=== PATIENT | male | born 1960 | race Caucasian/White ===

== ENCOUNTER 2017-08-28 07:03 | Inpatient (IN) | payer SELFPAY ==
[~2017-08-28] VITALS: Ht 180.3 cm; Wt 72.1 kg
[2017-08-28] MEDS ORDERED: IV NORMAL SALINE 1000ML BAG 1,000 ML IV ONE (07:45)
[2017-08-28] MEDS ORDERED: ONDANSETRON PF 4 MG/2 ML VIAL. IV ONE (07:45)
[2017-08-28] MEDS ORDERED: MORPHINE SULFATE 2 MG/ML DISP.SYRIN. IV/SQ PRN (07:45)
[2017-08-28] MEDS ORDERED: PANTOPRAZOLE IV PUSH 40 MG VIAL. IVP ONE (07:45)
[2017-08-28 07:52] LABS: BASO # 0.1 x10^3/uL (0.0-0.2); BASO % 1 % (0-3); EOS % 1 % (0-3); HEMATOCRIT 33.4 % (39.0-53.0); HEMOGLOBIN 10.2 g/dL (13.0-17.5); LYMPH # 0.8 x10^3/uL (1.0-4.8); LYMPH % 9 % (24-48); MEAN CORPUSCULAR HEMOGLOBIN 20 pg (25-35); MEAN CORPUSCULAR HGB CONC 31 g/dL (31-37); MEAN CORPUSCULAR VOLUME 64 fL (79-100); MONO % 4 % (0-9); NEUT % 86 % (31-73); PLATELET COUNT 408 x10^3/uL (140-400); RED BLOOD COUNT 5.19 x10^6/uL (4.30-5.70); RED CELL DISTRIBUTION WIDTH 18.4 % (11.5-14.5); WHITE BLOOD COUNT 9.2 x10^3/uL (4.0-11.0)
--- NOTE | 2017-08-28 07:52 | PHYS DOC ---
Adult General Chief Complaint Chief Complaint: ABDOMINAL PAIN HPI HPI Patient is a 56 year old male presents to the emergency department with a 1 month history of abdominal pain, cramping. Patient states he has developed bloody stools that have been dark red to bright red in color. Patient states he was seen at a clinic in which they called him last night telling him his blood count was low and called a prescription in for protonix in which has not picked up yet. Patient continues stating that he started vomiting the last 2 days, to many to count. He states the color has been greenish in color. Patient the developed light headedness and dizziness. Patient does state he drinks alcohol daily, smoke 1 ppd. Patient has a family history: mother with colon cancer and liver, father also had cancer. Patient had a normal colonoscopy in . Review of Systems Review of Systems Constitutional: Denies fever or chills [] Eyes: Denies change in visual acuity, redness, or eye pain [] HENT: Denies nasal congestion or sore throat [] Respiratory: Denies cough or shortness of breath [] Cardiovascular: No additional information not addressed in HPI [] GI: abdominal pain, nausea, vomiting, bloody stools. : Denies dysuria or hematuria [] Musculoskeletal: Denies back pain or joint pain [] Integument: Denies rash or skin lesions [] Neurologic: Denies headache, focal weakness or sensory changes [] Endocrine: Denies polyuria or polydipsia [] Current Medications Current Medications Current Medications Medications (Trade) Dose Ordered Sig/Kayleigh Start Time Stop Time Status Last Admin Dose Admin Morphine Sulfate 2 mg PRN Q15MIN PRN 08/28/17 07:45 08/29/17 07:44 Ondansetron HCl (Zofran) 4 mg 1X ONCE 08/28/17 07:45 08/28/17 07:46 DC 08/28/17 07:48 4 MG Pantoprazole Sodium (Protonix Vial) 40 mg 1X ONCE 08/28/17 07:45 08/28/17 07:46 DC 08/28/17 07:50 40 MG Sodium Chloride 1,000 ml @ 1,000 mls/hr 1X ONCE 08/28/17 07:45 08/28/17 08:44 DC 08/28/17 07:48 1,000 MLS/HR Allergies Allergies Allergies Coded Allergies Type Severity Reaction Last Updated Verified shellfish derived Allergy Intermediate 08/28/17 Yes shrimp Allergy Intermediate 08/28/17 Yes Physical Exam Physical Exam Constitutional: Well developed, well nourished, no acute distress, non-toxic appearance. [] HENT: Normocephalic, atraumatic, bilateral external ears normal, oropharynx moist, no oral exudates, nose normal. [] Eyes: PERRLA, EOMI, conjunctiva normal, no discharge. [] Neck: Normal range of motion, no tenderness, supple, no stridor. [] Cardiovascular:Heart rate regular rhythm, no murmur [] Lungs & Thorax: Bilateral breath sounds clear to auscultation [] Abdomen: Bowel sounds hypoactive, soft, left lower abdominal tenderness, no masses, no pulsatile masses. [] Skin: Warm, dry, no erythema, no rash. [] Extremities: No tenderness, no cyanosis, no clubbing, ROM intact, no edema. [] Neurologic: Alert and oriented X 3, normal motor function, normal sensory function, no focal deficits noted. [] Psychologic: Affect normal, judgement normal, mood normal. [] Rectal exam completed with KANDICE Mack at bedside no augustus blood noted. Patient was noted to have external hemorrhoids with no bleeding Current Patient Data Vital Signs Vital Signs Date Time Temp Pulse Resp B/P (MAP) Pulse Ox O2 Delivery O2 Flow Rate FiO2 08/28/17 07:05 97.7 94 16 129/81 (97) 99 Room Air 97.7 Lab Values Laboratory Tests Test 08/28/17 07:15 08/28/17 07:26 White Blood Count 9.2 x10^3/uL (4.0-11.0) Red Blood Count 5.19 x10^6/uL (4.30-5.70) Hemoglobin 10.2 g/dL (13.0-17.5) L Hematocrit 33.4 % (39.0-53.0) L Mean Corpuscular Volume 64 fL (79-100) L Mean Corpuscular Hemoglobin 20 pg (25-35) L Mean Corpuscular Hemoglobin Concent 31 g/dL (31-37) Red Cell Distribution Width 18.4 % (11.5-14.5) H Platelet Count 408 x10^3/uL (140-400) H Neutrophils (%) (Auto) 86 % (31-73) H Lymphocytes (%) (Auto) 9 % (24-48) L Monocytes (%) (Auto) 4 % (0-9) Eosinophils (%) (Auto) 1 % (0-3) Basophils (%) (Auto) 1 % (0-3) Neutrophils # (Auto) 7.9 x10^3uL (1.8-7.7) H Lymphocytes # (Auto) 0.8 x10^3/uL (1.0-4.8) L Monocytes # (Auto) 0.4 x10^3/uL (0.0-1.1) Eosinophils # (Auto) 0.1 x10^3/uL (0.0-0.7) Basophils # (Auto) 0.1 x10^3/uL (0.0-0.2) Platelet Estimate Pending Sodium Level 136 mmol/L (136-145) Potassium Level 4.6 mmol/L (3.5-5.1) Chloride Level 98 mmol/L (98-107) Carbon Dioxide Level 25 mmol/L (21-32) Anion Gap 13 (6-14) Blood Urea Nitrogen 17 mg/dL (8-26) Creatinine 0.9 mg/dL (0.7-1.3) Estimated GFR (Cockcroft-Gault) 87.0 BUN/Creatinine Ratio 19 (6-20) Glucose Level 86 mg/dL (70-99) Calcium Level 9.1 mg/dL (8.5-10.1) Total Bilirubin 0.5 mg/dL (0.2-1.0) Aspartate Amino Transferase (AST) 26 U/L (15-37) Alanine Aminotransferase (ALT) 14 U/L (16-63) L Alkaline Phosphatase 90 U/L (46-116) Total Protein 8.3 g/dL (6.4-8.2) H Albumin 3.6 g/dL (3.4-5.0) Albumin/Globulin Ratio 0.8 (1.0-1.7) L Amylase Level 98 U/L (25-115) Lipase 171 U/L (73-393) Ethyl Alcohol Level < 10 mg/dL (0-10) Stool Occult Blood Positive (NEG) Laboratory Tests 08/28/17 07:15 Laboratory Tests 08/28/17 07:15 EKG EKG [] Radiology/Procedures Radiology/Procedures [] Course & Med Decision Making Course & Med Decision Making Pertinent Labs and Imaging studies reviewed. (See chart for details) Patients hgh is stable at 10.2 Patient was provided with IV fluids and protonix here in the emergency department. CT scan completed with results provided to patient. Spoke with Dr Donnelly in regards to admission for this patient. Requested GI consult. Patient was also place on IV antibiotics as CT scan questioned diverticulitis vs sigmoid colonic malignancy. Patient will be NPO with IV fluids for hydration. Patient agrees with admission at this time. [] Dragon Disclaimer Dragon Disclaimer This electronic medical record was generated, in whole or in part, using a voice recognition dictation system. Departure Departure Impression: Primary Impression: Abdominal pain Additional Impressions: GI bleed Diverticulitis Disposition: ADMITTED INPATIENT Admitting Physician: Kartik Donnelly Referrals: NON,STAFF (PCP) Problem Qualifiers Primary Impression: Abdominal pain Abdominal location: generalized Qualified Codes: R10.84 - Generalized abdominal pain Additional Impressions: GI bleed GI bleed type/associated pathology: unspecified gastrointestinal hemorrhage type Qualified Codes: K92.2 - Gastrointestinal hemorrhage, unspecified CORINNE BILL MONEY COUNTER Aug 28, 2017 07:52
[2017-08-28 07:56] LABS: NEG OBC FOB NEG; POS OBC FOB POS
[2017-08-28 08:05] LABS: CALCIUM 9.1 mg/dL (8.5-10.1); CREATININE 0.9 mg/dL (0.7-1.3); POTASSIUM 4.6 mmol/L (3.5-5.1)
[2017-08-28 08:06] LABS: AMYLASE 98 U/L (25-115)
[2017-08-28 08:12] LABS: ALBUMIN 3.6 g/dL (3.4-5.0); ALBUMIN/GLOBULIN RATIO 0.8 (1.0-1.7); TOTAL BILIRUBIN 0.5 mg/dL (0.2-1.0); TOTAL PROTEIN 8.3 g/dL (6.4-8.2)
--- NOTE | 2017-08-28 09:39 | RAD ---
CT study of the abdomen and pelvis without contrast Clinical indications: Abdominal pain with vomiting and rectal bleeding. Technique: Noncontrast helical CT scanning of the abdomen and pelvis was performed. Without contrast, the sensitivity to detect organ pathology and GI tract pathology is decreased. PQRS Compliance Statement: One or more of the following individualized dose reduction techniques were utilized for this examination: 1. Automated exposure control 2. Adjustment of the mA and/or kV according to patient size 3. Use of iterative reconstruction technique Comparison: None available. Findings: The liver and spleen and pancreas are homogeneous in appearance as noncontrast study. The gallbladder is surgically absent. No extra hepatic biliary ductal dilatation is seen. There is mild dilatation of the common bile duct measuring up to 9 mm in caliber. There is a tubular structure adjacent to the common bile duct which contains small calcifications. This may represent a residual cystic duct remnant containing small gallstones or calcified biliary sludge. This structure measures 8 mm in caliber. No adrenal mass is seen. No hydronephrosis or hydroureter or urinary tract stone is seen. No renal mass is seen on either side on this noncontrast study. No focal aneurysmal dilatation of the abdominal aorta is seen. No enlarged abdominal or pelvic lymphadenopathy is seen. There is wall thickening of the mid sigmoid colon. There is some mild pericolonic inflammatory change here. The appendix is normal. The terminal ileum is unremarkable. There are fluid-filled dilated small bowel loops centrally but no discrete caliber change is seen. Therefore, this may represent enteritis. No free air is evident. There is a small amount of free fluid within the dependent portion of the pelvis. No lung base consolidation is evident. Avascular necrosis of both femoral heads is seen. No osteolytic process is seen. IMPRESSION: There is segmental wall thickening of the mid sigmoid colon with mild pericolonic inflammatory change. This could represent sigmoid diverticulitis or sigmoid colonic malignancy. Small amount of free fluid is seen within the dependent portion of the pelvis. No free air is evident. Diffuse mildly dilated fluid-filled small bowel loops are seen without definite caliber change. Therefore, this may represent enteritis rather the small bowel obstruction. There is mild dilatation of the common bile duct. This may be due to the reservoir effect from the cholecystectomy. However, correlation with liver function tests is recommended. There is mild dilatation of the adjacent cystic duct remnant which contains multiple small calcifications which could represent small gallstones or calcified stagnant biliary sludge within the cystic duct remnant.
[2017-08-28] MEDS ORDERED: CIPROFLOXACIN 400MG PREMIX 200 ML IV ONE (10:00)
[2017-08-28] MEDS ORDERED: ONDANSETRON PF 4 MG/2 ML VIAL. IV PRN (10:00)
[2017-08-28] MEDS ORDERED: MORPHINE SULFATE 4 MG/ML DISP.SYRIN. IV PRN (10:00)
[2017-08-28] MEDS: IV NORMAL SALINE 1000ML BAG 1,000 ML IV SCH ×2 (10:25→17:25)
[2017-08-28 11:05] LABS: PLT ESTIMATE INCREASED (ADEQUATE)
[2017-08-28 11:06] LABS: ANISOCYTOSIS SLIGHT; HYPOCHROMIA MOD; MICROCYTOSIS MOD
--- NOTE | 2017-08-28 11:51 | PDOC2 ---
GI CONSULT Reason For Consult: GI bleed possible diverticulitis HPI: HPI: 56 y/o male who reports intermittent abdominal cramping "around the belt line" x 2-3 months. Associated w/ rectal bleeding (last occurred last week). Was seen at a clinic next to his work last week for this reason, provider called him yesterday and advised starting Protonix, was also found to be anemic. 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 Came to ER instead. Here, microcytic anemia w/ elevated RDW and positive hemoccult. CT shows mid sigmoid wall thickening w/ mild pericolonic inflammation (diverticulitis vs malignancy) and diffuse mildly dilated fluid-filled small bowel loops (possible enteritis). Also noted is mild dilatation of CBD s/p cholecystectomy w/ mild dilatation of cystic duct remnant w/ multiple calcifications (small gallstones or biliary sludge). Started on IV Flagyl and Cipro, given IV PPI x 1. No GERD history, no previous EGD. Has lost about 10 pounds unintentionally. Usually eats 1 meal daily; since cholecystectomy ~7 years ago, avoids eating at work due to associated urgency to stool. Says is having normal formed stools w/ o diarrhea or constipation. Colonoscopy in 2008 or 2009 @ [facility], recalls as normal. No hematemesis or melena. H/o hemorrhoidectomy - had prior prior to that, never bleeding. PMH: PMH: cholelithiasis, cholecystectomy, hemorrhoidectomy FH: Family History: Cancer (mother - colon, father - liver) Social History: Smoke: 1 pack per day ALCOHOL: other (6 pack of beer weekly) Drugs: None ROS: GEN: Denies fevers, chills, sweats HEENT: Denies blurred vision, sore throat CV: Denies chest pain RESP: Denies shortness of air, cough GI: Per HPI : Denies hematuria, dysuria ENDO: +weight loss NEURO: Denies confusion, dizziness MSK: Denies weakness, joint pain/swelling SKIN: Denies jaundice, pruritus Vitals: Vitals: Vital Signs Date Time Temp Pulse Resp B/P (MAP) Pulse Ox O2 Delivery O2 Flow Rate FiO2 08/28/17 07:05 97.7 94 16 129/81 (97) 99 Room Air 97.7 Labs: Labs: Laboratory Tests Test 08/28/17 07:15 08/28/17 07:26 White Blood Count 9.2 x10^3/uL (4.0-11.0) Red Blood Count 5.19 x10^6/uL (4.30-5.70) Hemoglobin 10.2 g/dL (13.0-17.5) Hematocrit 33.4 % (39.0-53.0) Mean Corpuscular Volume 64 fL (79-100) Mean Corpuscular Hemoglobin 20 pg (25-35) Mean Corpuscular Hemoglobin Concent 31 g/dL (31-37) Red Cell Distribution Width 18.4 % (11.5-14.5) Platelet Count 408 x10^3/uL (140-400) Neutrophils (%) (Auto) 86 % (31-73) Lymphocytes (%) (Auto) 9 % (24-48) Monocytes (%) (Auto) 4 % (0-9) Eosinophils (%) (Auto) 1 % (0-3) Basophils (%) (Auto) 1 % (0-3) Neutrophils # (Auto) 7.9 x10^3uL (1.8-7.7) Lymphocytes # (Auto) 0.8 x10^3/uL (1.0-4.8) Monocytes # (Auto) 0.4 x10^3/uL (0.0-1.1) Eosinophils # (Auto) 0.1 x10^3/uL (0.0-0.7) Basophils # (Auto) 0.1 x10^3/uL (0.0-0.2) Segmented Neutrophils % 88 % (35-66) Lymphocytes % 6 % (24-48) Monocytes % 6 % (0-10) Platelet Estimate Increased (ADEQUATE) Hypochromasia Mod Anisocytosis Slight Microcytosis Mod Sodium Level 136 mmol/L (136-145) Potassium Level 4.6 mmol/L (3.5-5.1) Chloride Level 98 mmol/L (98-107) Carbon Dioxide Level 25 mmol/L (21-32) Anion Gap 13 (6-14) Blood Urea Nitrogen 17 mg/dL (8-26) Creatinine 0.9 mg/dL (0.7-1.3) Estimated GFR (Cockcroft-Gault) 87.0 BUN/Creatinine Ratio 19 (6-20) Glucose Level 86 mg/dL (70-99) Calcium Level 9.1 mg/dL (8.5-10.1) Total Bilirubin 0.5 mg/dL (0.2-1.0) Aspartate Amino Transf (AST/SGOT) 26 U/L (15-37) Alanine Aminotransferase (ALT/SGPT) 14 U/L (16-63) Alkaline Phosphatase 90 U/L (46-116) Total Protein 8.3 g/dL (6.4-8.2) Albumin 3.6 g/dL (3.4-5.0) Albumin/Globulin Ratio 0.8 (1.0-1.7) Amylase Level 98 U/L (25-115) Lipase 171 U/L (73-393) Ethyl Alcohol Level < 10 mg/dL (0-10) Stool Occult Blood Positive (NEG) Allergies: Coded Allergies: shellfish derived (Verified Allergy, Intermediate, 08/28/17) shrimp (Verified Allergy, Intermediate, 08/28/17) Medications: Current Medications Medications (Trade) Dose Ordered Sig/Kayleigh Route PRN Reason Start Time Stop Time Status Last Admin Dose Admin Sodium Chloride 1,000 ml @ 1,000 mls/hr 1X ONCE IV 08/28/17 07:45 08/28/17 08:44 DC 08/28/17 07:48 Ondansetron HCl (Zofran) 4 mg 1X ONCE IV 08/28/17 07:45 08/28/17 07:46 DC 08/28/17 07:48 Pantoprazole Sodium (Protonix Vial) 40 mg 1X ONCE IVP 08/28/17 07:45 08/28/17 07:46 DC 08/28/17 07:50 Sodium Chloride 1,000 ml @ 125 mls/hr Q8H IV 08/28/17 09:49 08/29/17 09:48 08/28/17 10:25 Ciprofloxacin/ Dextrose 200 ml @ 200 mls/hr 1X ONCE IV 08/28/17 10:00 08/28/17 10:59 DC 08/28/17 10:24 Imaging: Imaging: CT A/P IMPRESSION: There is segmental wall thickening of the mid sigmoid colon with mild pericolonic inflammatory change. This could represent sigmoid diverticulitis or sigmoid colonic malignancy. Small amount of free fluid is seen within the dependent portion of the pelvis. No free air is evident. Diffuse mildly dilated fluid-filled small bowel loops are seen without definite caliber change. Therefore, this may represent enteritis rather the small bowel obstruction. There is mild dilatation of the common bile duct. This may be due to the reservoir effect from the cholecystectomy. However, correlation with liver function tests is recommended. There is mild dilatation of the adjacent cystic duct remnant which contains multiple small calcifications which could represent small gallstones or calcified stagnant biliary sludge within the cystic duct remnant. PE: GEN: NAD HEENT: Atraumatic, PERRL LUNGS: CTAB anteriorly HEART: RRR ABD: NABS, S/ND, umbilical tenderness to BLQ and suprapubic region EXTREMITY: No edema SKIN: No rashes, no jaundice NEURO/PSYCH: A & O 3 A/P: A/P: Vomiting -acute onset yesterday, precipitated by eating chili Lower abd cramping, rectal bleeding -bothersome intermittently x 2-3 months Weight loss -unintentional, about 10 pounds -eats 1 meal daily to avoid urgent stooling at work Microcytic anemia Abnormal CT A/P -mid sigmoid wall thickening w/ mild pericolonic inflammation (diverticulitis vs malignancy) -diffuse mildly dilated fluid-filled small bowel loops (possible enteritis) -mild dilatation of CBD s/p cholecystectomy w/ mild dilatation of cystic duct remnant w/ multiple calcifications (small gallstones or biliary sludge) CRC screen, FH colon cancer -recalls normal colonoscopy in 2008 or 2009 -- Colonoscopy tomorrow after prep. 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 ALEXIS ACEVEDO Aug 28, 2017 11:51
[2017-08-28 12:12] VITALS: BP 108/73
[2017-08-28 12:20] LABS: % SAT IRON 3 % (15-34); IRON,SERUM 14 ug/dL (65-175)
[2017-08-28 13:14] LABS: HEMATOCRIT 27.5 % (39.0-53.0); HEMOGLOBIN 8.5 g/dL (13.0-17.5)
[2017-08-28 13:46] LABS: FOLATE 12.46 ng/ml (3.2-20.0)
[2017-08-28] MEDS: FAMOTIDINE 20 MG/2 ML VIAL IVP SCH ×2 (14:56→21:16)
[2017-08-28 15:00] VITALS: BP 117/72
[2017-08-28] MEDS ORDERED: BISACODYL 5 MG TABLET.DR. PO ONE (15:00)
[2017-08-28] MEDS ORDERED: POLYETHYLENE GLYCOL 3350 238 GM POWDER PO ONE (16:00)
[2017-08-28] MEDS ORDERED: NICOTINE 21MG PATCH. TD PRN (16:00)
[2017-08-28] MEDS: NICOTINE POLACRILEX 2MG GUM PACKAGE of 12. BC PRN (17:26)
[2017-08-28 19:00] VITALS: BP 103/62
[2017-08-28 19:43] LABS: HEMATOCRIT 26.5 % (39.0-53.0); HEMOGLOBIN 8.3 g/dL (13.0-17.5)
[2017-08-28] MEDS: LACTOBACILLUS RHAMNOSUS GG 1 CAPSULE. PO SCH (21:16)
[2017-08-28] MEDS: CIPROFLOXACIN 400MG PREMIX 200 ML IV SCH (21:16)
[2017-08-28 23:00] VITALS: BP 104/70
--- NOTE | 2017-08-29 01:14 | HP ---
ADMIT DATE: 08/28/2017 CHIEF COMPLAINT: GI bleed with rectal melena, bright red blood per rectum, nausea, abdominal pain, mild weight loss. HISTORY OF PRESENT ILLNESS: The patient is a pleasant 56-year-old male who presents with the above chief complaints. Basically, he has got abdominal pain. He has been having some dark stools. He had bloody stools. He did go to a clinic. They called him and told him he was anemic, put him on some Protonix. He did not really pickler helper his prescription yet. He has lost a few pounds. I discussed the case with the ER physician. It appears he has a GI bleed and CAT scan is suspicious for possible malignancy. We are going to admit the patient and consult GI. PAST MEDICAL HISTORY: Gallstones, cholecystectomy, hemorrhoidectomy. ALLERGIES: SHELLFISH. FAMILY HISTORY: Colon cancer in his mom. SOCIAL HISTORY: He smokes and drinks. No drugs. MEDICATIONS: Reviewed. REVIEW OF SYSTEMS: GENERAL: No history of weight change, weakness or fevers. SKIN: No bruising, hair changes or rashes. EYES: No blurred, double or loss of vision. NOSE AND THROAT: No history of nosebleeds, hoarseness or sore throat. HEART: No history of palpitations, chest pain or shortness of breath on exertion. LUNGS: Denies cough, hemoptysis, wheezing or shortness of breath. GASTROINTESTINAL: He complains of abdominal pain and bright red blood per rectum. GENITOURINARY: No history of frequency, urgency, hesitancy or nocturia. NEUROLOGIC: Denies history of numbness, tingling, tremor or weakness. PSYCHIATRIC: No history of panic, anxiety or depression. ENDOCRINE: No history of heat or cold intolerance, polyuria or polydipsia. EXTREMITIES: Denies muscle weakness, joint pain, pain on walking or stiffness. PHYSICAL EXAMINATION: VITAL SIGNS: Temperature 97.4, pulse 80, respirations 18, blood pressure 142/90. GENERAL: He is awake, alert. HEART: Normal S1, S2. LUNGS: Clear. ABDOMEN: Soft. Decreased bowel sounds, tender. EXTREMITIES: No edema. SKIN: No rashes. ENDOCRINE: No thyromegaly. LYMPHATICS: No cervical nodes. HEMATOPOIETIC: No bruising. LABORATORY DATA: Hemoglobin is 10.2. ASSESSMENT AND PLAN: Gastrointestinal bleed with imaging study suspicious for possible malignancy. The patient has been admitted. We will consult GI. Frequent labs. Transfuse p.r.n., IV Protonix, p.r.n. Zofran, IV fluids. DAMARIS MATHEWS DO DR: MIESHA/sonia JOB#: [id number] / [id number]
[2017-08-29 01:23] LABS: HEMATOCRIT 27.2 % (39.0-53.0); HEMOGLOBIN 8.3 g/dL (13.0-17.5)
[2017-08-29] MEDS: IV NORMAL SALINE 1000ML BAG 1,000 ML IV SCH (02:05)
[2017-08-29 03:09] VITALS: BP 99/64
[2017-08-29 05:57] LABS: BASO % 1 % (0-3); EOS % 3 % (0-3); HEMATOCRIT 27.5 % (39.0-53.0); HEMOGLOBIN 8.5 g/dL (13.0-17.5); LYMPH # 1.5 x10^3/uL (1.0-4.8); LYMPH % 27 % (24-48); MEAN CORPUSCULAR HEMOGLOBIN 20 pg (25-35); MEAN CORPUSCULAR HGB CONC 31 g/dL (31-37); MEAN CORPUSCULAR VOLUME 64 fL (79-100); MONO % 7 % (0-9); NEUT % 63 % (31-73); PLATELET COUNT 324 x10^3/uL (140-400); RED BLOOD COUNT 4.27 x10^6/uL (4.30-5.70); RED CELL DISTRIBUTION WIDTH 18.7 % (11.5-14.5); WHITE BLOOD COUNT 5.7 x10^3/uL (4.0-11.0)
[2017-08-29 06:12] LABS: CALCIUM 8.1 mg/dL (8.5-10.1); CREATININE 0.8 mg/dL (0.7-1.3); GFR 99.6
[2017-08-29] MEDS ORDERED: MORPHINE SULFATE 4 MG/ML DISP.SYRIN. IV PRN (07:00)
[2017-08-29] MEDS ORDERED: IV RINGERS,LACTATED 1000ML 1,000 ML IV SCH ×2 (07:00→10:32)
[2017-08-29] MEDS ORDERED: PROCHLORPERAZINE 10 MG/2 ML VIAL. IV PRN (07:00)
[2017-08-29] MEDS ORDERED: fentaNYL PF VIAL 100 MCG/2 ML VIAL IV PRN ×4 (07:00→10:45)
[2017-08-29] MEDS ORDERED: LIDOCAINE 1% PF 2 ML VIAL. ID PRN ×2 (07:00→10:45)
[2017-08-29] MEDS ORDERED: HYDROmorphone 2 MG/ML VIAL IV PRN (07:00)
[2017-08-29 07:47] VITALS: BP 108/68
[2017-08-29] MEDS: NICOTINE POLACRILEX 2MG GUM PACKAGE of 12. BC PRN (08:37)
[2017-08-29] MEDS: FAMOTIDINE 20 MG/2 ML VIAL IVP SCH ×2 (08:38→21:00)
[2017-08-29] MEDS: CIPROFLOXACIN 400MG PREMIX 200 ML IV SCH ×2 (08:38→20:54)
[2017-08-29] MEDS: LACTOBACILLUS RHAMNOSUS GG 1 CAPSULE. PO SCH ×2 (08:39→21:03)
[2017-08-29 10:45] VITALS: BP 98/65
[2017-08-29] MEDS ORDERED: MIDAZOLAM HCL/PF 2 MG/2 ML VIAL. IV PRN (10:45)
--- NOTE | 2017-08-29 12:50 | PDOC ---
PROGRESS NOTES Chief Complaint Chief Complaint Lower abd pain, rectal bleeding difftls include AGE, colitis, or malignancy Vomiting Weight loss -unintentional, about 10 pounds Microcytic anemia Due c scope CRC screen History of Present Illness History of Present Illness NO rectal bleed episodes today Some lower abd cramping when he did have some bloody stools HH q6 is stable hgb at 6 range NPO for C scope today CTscan I have personally reviewed and gave him a copy IMPRESSION: There is segmental wall thickening of the mid sigmoid colon with mild pericolonic inflammatory change. This could represent sigmoid diverticulitis or sigmoid colonic malignancy. Small amount of free fluid is seen within the dependent portion of the pelvis. No free air is evident. Diffuse mildly dilated fluid-filled small bowel loops are seen without definite caliber change. Therefore, this may represent enteritis rather the small bowel obstruction. There is mild dilatation of the common bile duct. This may be due to the reservoir effect from the cholecystectomy. However, correlation with liver function tests is recommended. There is mild dilatation of the adjacent cystic duct remnant which contains multiple small calcifications which could represent small gallstones or calcified stagnant biliary sludge within the cystic duct remnant. 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 Vitals Vitals Vital Signs Date Time Temp Pulse Resp B/P (MAP) Pulse Ox O2 Delivery O2 Flow Rate FiO2 08/29/17 10:45 97.7 68 18 98/65 (76) 98 Room Air 97.7 Physical Exam General: Alert, Oriented X3, Cooperative Heart: Regular rate, Normal S1, Normal S2 Lungs: Clear Abdomen: Normal bowel sounds, Soft Extremities: No clubbing, No cyanosis Skin: No rashes, No breakdown Labs LABS Laboratory Tests Test 08/28/17 13:05 08/28/17 19:20 08/29/17 01:15 08/29/17 04:50 Hemoglobin 8.5 g/dL (13.0-17.5) 8.3 g/dL (13.0-17.5) 8.3 g/dL (13.0-17.5) 8.5 g/dL (13.0-17.5) Hematocrit 27.5 % (39.0-53.0) 26.5 % (39.0-53.0) 27.2 % (39.0-53.0) 27.5 % (39.0-53.0) White Blood Count 5.7 x10^3/uL (4.0-11.0) Red Blood Count 4.27 x10^6/uL (4.30-5.70) Mean Corpuscular Volume 64 fL (79-100) Mean Corpuscular Hemoglobin 20 pg (25-35) Mean Corpuscular Hemoglobin Concent 31 g/dL (31-37) Red Cell Distribution Width 18.7 % (11.5-14.5) Platelet Count 324 x10^3/uL (140-400) Neutrophils (%) (Auto) 63 % (31-73) Lymphocytes (%) (Auto) 27 % (24-48) Monocytes (%) (Auto) 7 % (0-9) Eosinophils (%) (Auto) 3 % (0-3) Basophils (%) (Auto) 1 % (0-3) Neutrophils # (Auto) 3.6 x10^3uL (1.8-7.7) Lymphocytes # (Auto) 1.5 x10^3/uL (1.0-4.8) Monocytes # (Auto) 0.4 x10^3/uL (0.0-1.1) Eosinophils # (Auto) 0.2 x10^3/uL (0.0-0.7) Basophils # (Auto) 0.0 x10^3/uL (0.0-0.2) Sodium Level 138 mmol/L (136-145) Potassium Level 4.0 mmol/L (3.5-5.1) Chloride Level 106 mmol/L (98-107) Carbon Dioxide Level 26 mmol/L (21-32) Anion Gap 6 (6-14) Blood Urea Nitrogen 9 mg/dL (8-26) Creatinine 0.8 mg/dL (0.7-1.3) Estimated GFR (Cockcroft-Gault) 99.6 Glucose Level 85 mg/dL (70-99) Calcium Level 8.1 mg/dL (8.5-10.1) Review of Systems Review of Systems soft stools, lower abd cramps, no fever, cp, soa, emesis today Assessment and Plan Assessmemt and Plan Problems Medical Problems: (1) Diverticulitis Status: Acute Problems: Comment Review of Relevant I have reviewed the following items deloris (where applicable) has been applied. Labs Laboratory Tests Test 08/28/17 07:15 08/28/17 07:26 08/28/17 10:20 08/28/17 13:05 White Blood Count 9.2 x10^3/uL (4.0-11.0) Red Blood Count 5.19 x10^6/uL (4.30-5.70) Hemoglobin 10.2 g/dL (13.0-17.5) 8.5 g/dL (13.0-17.5) Hematocrit 33.4 % (39.0-53.0) 27.5 % (39.0-53.0) Mean Corpuscular Volume 64 fL (79-100) Mean Corpuscular Hemoglobin 20 pg (25-35) Mean Corpuscular Hemoglobin Concent 31 g/dL (31-37) Red Cell Distribution Width 18.4 % (11.5-14.5) Platelet Count 408 x10^3/uL (140-400) Neutrophils (%) (Auto) 86 % (31-73) Lymphocytes (%) (Auto) 9 % (24-48) Monocytes (%) (Auto) 4 % (0-9) Eosinophils (%) (Auto) 1 % (0-3) Basophils (%) (Auto) 1 % (0-3) Neutrophils # (Auto) 7.9 x10^3uL (1.8-7.7) Lymphocytes # (Auto) 0.8 x10^3/uL (1.0-4.8) Monocytes # (Auto) 0.4 x10^3/uL (0.0-1.1) Eosinophils # (Auto) 0.1 x10^3/uL (0.0-0.7) Basophils # (Auto) 0.1 x10^3/uL (0.0-0.2) Segmented Neutrophils % 88 % (35-66) Lymphocytes % 6 % (24-48) Monocytes % 6 % (0-10) Platelet Estimate Increased (ADEQUATE) Hypochromasia Mod Anisocytosis Slight Microcytosis Mod Reticulocyte Count (auto) 1.5 % (0.5-2.5) Sodium Level 136 mmol/L (136-145) Potassium Level 4.6 mmol/L (3.5-5.1) Chloride Level 98 mmol/L (98-107) Carbon Dioxide Level 25 mmol/L (21-32) Anion Gap 13 (6-14) Blood Urea Nitrogen 17 mg/dL (8-26) Creatinine 0.9 mg/dL (0.7-1.3) Estimated GFR (Cockcroft-Gault) 87.0 BUN/Creatinine Ratio 19 (6-20) Glucose Level 86 mg/dL (70-99) Calcium Level 9.1 mg/dL (8.5-10.1) Total Bilirubin 0.5 mg/dL (0.2-1.0) Aspartate Amino Transf (AST/SGOT) 26 U/L (15-37) Alanine Aminotransferase (ALT/SGPT) 14 U/L (16-63) Alkaline Phosphatase 90 U/L (46-116) Total Protein 8.3 g/dL (6.4-8.2) Albumin 3.6 g/dL (3.4-5.0) Albumin/Globulin Ratio 0.8 (1.0-1.7) Amylase Level 98 U/L (25-115) Lipase 171 U/L (73-393) Ethyl Alcohol Level < 10 mg/dL (0-10) Stool Occult Blood Positive (NEG) Iron Level 14 ug/dL (65-175) Total Iron Binding Capacity 418 ug/dL (250-450) Iron Saturation 3 % (15-34) Vitamin B12 Level 338 pg/mL (247-911) Serum Folate 12.46 ng/ml (3.2-20.0) Test 08/28/17 19:20 08/29/17 01:15 08/29/17 04:50 Hemoglobin 8.3 g/dL (13.0-17.5) 8.3 g/dL (13.0-17.5) 8.5 g/dL (13.0-17.5) Hematocrit 26.5 % (39.0-53.0) 27.2 % (39.0-53.0) 27.5 % (39.0-53.0) White Blood Count 5.7 x10^3/uL (4.0-11.0) Red Blood Count 4.27 x10^6/uL (4.30-5.70) Mean Corpuscular Volume 64 fL (79-100) Mean Corpuscular Hemoglobin 20 pg (25-35) Mean Corpuscular Hemoglobin Concent 31 g/dL (31-37) Red Cell Distribution Width 18.7 % (11.5-14.5) Platelet Count 324 x10^3/uL (140-400) Neutrophils (%) (Auto) 63 % (31-73) Lymphocytes (%) (Auto) 27 % (24-48) Monocytes (%) (Auto) 7 % (0-9) Eosinophils (%) (Auto) 3 % (0-3) Basophils (%) (Auto) 1 % (0-3) Neutrophils # (Auto) 3.6 x10^3uL (1.8-7.7) Lymphocytes # (Auto) 1.5 x10^3/uL (1.0-4.8) Monocytes # (Auto) 0.4 x10^3/uL (0.0-1.1) Eosinophils # (Auto) 0.2 x10^3/uL (0.0-0.7) Basophils # (Auto) 0.0 x10^3/uL (0.0-0.2) Sodium Level 138 mmol/L (136-145) Potassium Level 4.0 mmol/L (3.5-5.1) Chloride Level 106 mmol/L (98-107) Carbon Dioxide Level 26 mmol/L (21-32) Anion Gap 6 (6-14) Blood Urea Nitrogen 9 mg/dL (8-26) Creatinine 0.8 mg/dL (0.7-1.3) Estimated GFR (Cockcroft-Gault) 99.6 Glucose Level 85 mg/dL (70-99) Calcium Level 8.1 mg/dL (8.5-10.1) Laboratory Tests Test 08/28/17 13:05 08/28/17 19:20 08/29/17 01:15 08/29/17 04:50 Hemoglobin 8.5 g/dL (13.0-17.5) 8.3 g/dL (13.0-17.5) 8.3 g/dL (13.0-17.5) 8.5 g/dL (13.0-17.5) Hematocrit 27.5 % (39.0-53.0) 26.5 % (39.0-53.0) 27.2 % (39.0-53.0) 27.5 % (39.0-53.0) White Blood Count 5.7 x10^3/uL (4.0-11.0) Red Blood Count 4.27 x10^6/uL (4.30-5.70) Mean Corpuscular Volume 64 fL (79-100) Mean Corpuscular Hemoglobin 20 pg (25-35) Mean Corpuscular Hemoglobin Concent 31 g/dL (31-37) Red Cell Distribution Width 18.7 % (11.5-14.5) Platelet Count 324 x10^3/uL (140-400) Neutrophils (%) (Auto) 63 % (31-73) Lymphocytes (%) (Auto) 27 % (24-48) Monocytes (%) (Auto) 7 % (0-9) Eosinophils (%) (Auto) 3 % (0-3) Basophils (%) (Auto) 1 % (0-3) Neutrophils # (Auto) 3.6 x10^3uL (1.8-7.7) Lymphocytes # (Auto) 1.5 x10^3/uL (1.0-4.8) Monocytes # (Auto) 0.4 x10^3/uL (0.0-1.1) Eosinophils # (Auto) 0.2 x10^3/uL (0.0-0.7) Basophils # (Auto) 0.0 x10^3/uL (0.0-0.2) Sodium Level 138 mmol/L (136-145) Potassium Level 4.0 mmol/L (3.5-5.1) Chloride Level 106 mmol/L (98-107) Carbon Dioxide Level 26 mmol/L (21-32) Anion Gap 6 (6-14) Blood Urea Nitrogen 9 mg/dL (8-26) Creatinine 0.8 mg/dL (0.7-1.3) Estimated GFR (Cockcroft-Gault) 99.6 Glucose Level 85 mg/dL (70-99) Calcium Level 8.1 mg/dL (8.5-10.1) Medications Current Medications Sodium Chloride 1,000 ml @ 1,000 mls/hr 1X ONCE IV Last administered on t 07:48; Start 08/28/17 at 07:45; Stop 08/28/17 at 08:44; Status DC Ondansetron HCl (Zofran) 4 mg 1X ONCE IV Last administered on 08/28/17 07:48 ; Start 08/28/17 at 07:45; Stop 08/28/17 at 07:46; Status DC Pantoprazole Sodium (Protonix Vial) 40 mg 1X ONCE IVP Last administered on 07:50; Start 08/28/17 at 07:45; Stop 08/28/17 at 07:46; Status DC Morphine Sulfate 2 mg PRN Q15MIN PRN IV/SQ PAIN GREATER THAN 3/10; Start at 07:45; Stop 08/29/17 at 07:44; Status DC Ondansetron HCl (Zofran) 4 mg PRN Q8HRS PRN IV NAUSEA/VOMITING; Start 08/28/17 at 10:00; Stop 08/29/17 at 09:59; Status DC Morphine Sulfate 2 mg PRN Q2HR PRN IV PAIN; Start 08/28/17 at 10:00; Stop 08/29 at 09:59; Status DC Sodium Chloride 1,000 ml @ 125 mls/hr Q8H IV Last administered on 08/29/17 02 :05; Start 08/28/17 at 09:49; Stop 08/29/17 at 09:48; Status DC Ciprofloxacin/ Dextrose 200 ml @ 200 mls/hr 1X ONCE IV Last administered on 08/28/17 10:24; Start 08/28/17 at 10:00; Stop 08/28/17 at 10:59; Status DC Metronidazole 100 ml @ 100 mls/hr Q8HRS IV Last administered on 08/29/17 07: 31; Start 08/28/17 at 11:00 Metronidazole 100 ml @ 100 mls/hr 1X ONCE IV ; Start 08/28/17 at 10:00; Stop 08/28/17 at 10:59; Status Cancel Ciprofloxacin/ Dextrose 200 ml @ 200 mls/hr Q12HR IV Last administered on 08/29 08:38; Start 08/28/17 at 21:00 Famotidine (Pepcid) 20 mg BID IVP Last administered on 08/29/17 08:38; Start 08/28/17 at 12:00 Polyethylene Glycol (miraLAX Powder BULK BOTTLE) 238 gm 1X ONCE PO Last administered on 08/28/17 17:26; Start 08/28/17 at 16:00; Stop 08/28/17 at 16:01 ; Status DC Bisacodyl (Dulcolax Tab) 10 mg 1X ONCE PO Last administered on 08/28/17 14:56 ; Start 08/28/17 at 15:00; Stop 08/28/17 at 15:01; Status DC Lactobacillus Rhamnosus (Culturelle) 1 cap BID PO Last administered on 21:16; Start 08/28/17 at 21:00 Fentanyl Citrate (Fentanyl 2ml Vial) 25 mcg PRN Q5MIN PRN IV MILD PAIN; Start 08/29/17 at 07:00; Stop 08/29/17 at 18:00 Fentanyl Citrate (Fentanyl 2ml Vial) 50 mcg PRN Q5MIN PRN IV MODERATE PAIN; Start 08/29/17 at 07:00; Stop 08/29/17 at 18:00 Morphine Sulfate 1 mg PRN Q10MIN PRN IV SEVERE PAIN; Start 08/29/17 at 07:00; Stop 08/29/17 at 18:00 Ringer's Solution 1,000 ml @ 30 mls/hr Q24H IV ; Start 08/29/17 at 07:00; Stop 08/29/17 at 18:59 Lidocaine HCl (Xylocaine-Mpf 1% Vial) 2 ml PRN 1X PRN ID IV START; Start at 07:00; Stop 08/29/17 at 18:00 Hydromorphone HCl (Dilaudid) 0.5 mg PRN Q10MIN PRN IV SEV PAIN, Second choice; Start 08/29/17 at 07:00; Stop 08/29/17 at 18:00 Prochlorperazine Edisylate (Compazine) 5 mg PACU PRN PRN IV NAUSEA, MRX1; Start 08/29/17 at 07:00; Stop 08/29/17 at 18:00 Nicotine (Nicoderm Cq 21mg) 1 patch PRN DAILY PRN TD SMOKING CESSATION; Start 08/28/17 at 16:00 Nicotine Polacrilex (Nicorette Gum) 1 each PRN Q1HR PRN BC SMOKING CESSATION Last administered on 11/9/17at 08:37; Start 08/28/17 at 16:00 Midazolam HCl (Versed) 2 mg PRN 1X PRN IV PRIOR TO PROCEDURE; Start 08/29/17 at 10:45; Stop 08/30/17 at 10:44 Fentanyl Citrate (Fentanyl 2ml Vial) 25 mcg PRN Q5MIN PRN IV X 2 DOSES FOR PAIN ; Start 08/29/17 at 10:45; Stop 08/30/17 at 10:44 Fentanyl Citrate (Fentanyl 2ml Vial) 50 mcg PRN Q5MIN PRN IV X 2 DOSES FOR PAIN ; Start 08/29/17 at 10:45; Stop 08/30/17 at 10:44 Ringer's Solution 1,000 ml @ 125 mls/hr Q8H IV ; Start 08/29/17 at 10:32; Stop 08/29/17 at 22:31 Lidocaine HCl (Xylocaine-Mpf 1% Vial) 2 ml 1X PRN PRN ID IV START; Start at 10:45; Stop 08/30/17 at 10:44 Vitals/I & O Vital Sign - Last 24 Hours 08/28/17 08/28/17 08/28/17 08/29/17 15:00 19:00 23:00 03:09 Temp 98.0 98.1 97.8 97.9 98.0 98.1 97.8 97.9 Pulse 93 81 79 76 Resp 22 20 20 20 B/P (MAP) 117/72 (87) 103/62 (76) 104/70 (81) 99/64 (76) Pulse Ox 96 97 98 98 O2 Delivery Room Air Room Air Room Air Room Air 08/29/17 08/29/17 07:47 10:45 Temp 97.7 97.7 97.7 97.7 Pulse 69 68 Resp 18 18 B/P (MAP) 108/68 (81) 98/65 (76) Pulse Ox 98 98 O2 Delivery Room Air Room Air Intake and Output 08/29/17 08/29/17 08/30/17 15:00 23:00 07:00 Intake Total 300 ml Balance 300 ml BRAYDON OVALLE MD Aug 29, 2017 12:50
[2017-08-29] MEDS ORDERED: LIDOCAINE 2% PF Vial for OR 5 ML VIAL. ONE (14:27)
[2017-08-29] MEDS ORDERED: PROPOFOL 20 ML IV ONE ×2 (14:27→14:28)
--- NOTE | 2017-08-29 14:56 | PDOC4 ---
Operative Note Operative Note Flexible sigmoidoscopy with bx/tattoo Meds propofol per anesthesia Pre-op dx rectal bleed/fmhx colon cancer/abnl CT scan sigmoid colon Post-op dx internal hemorrhoids sigmoid colon mass with near lumen occlusion s/p bx/tattoo at 25 cm Plan surgical consult for sigmoid resection JOSE CRUZ LONDON MD Aug 29, 2017 14:56
[2017-08-29 15:00] VITALS: BP 122/70
[2017-08-29 19:00] VITALS: BP 114/63
[2017-08-29 23:00] VITALS: BP 106/70
[2017-08-30 03:00] VITALS: BP 104/59
[2017-08-30 05:23] LABS: HEMATOCRIT 27.1 % (39.0-53.0); HEMOGLOBIN 8.3 g/dL (13.0-17.5)
[2017-08-30 07:00] VITALS: BP 117/71
[2017-08-30] MEDS: CIPROFLOXACIN 400MG PREMIX 200 ML IV SCH ×2 (07:54→20:24)
[2017-08-30] MEDS: FAMOTIDINE 20 MG/2 ML VIAL IVP SCH ×2 (07:54→20:30)
[2017-08-30] MEDS: LACTOBACILLUS RHAMNOSUS GG 1 CAPSULE. PO SCH ×2 (07:56→20:30)
--- NOTE | 2017-08-30 09:35 | PDOC2 ---
HUE SHIRLEY CARE DIRECTOR 08/30/17 0935: CONSULT Date of Consult Date of Consult DATE: 08/30/17 TIME: 09:29 Reason for Consult Reason for Consult: sigmoid mass Referring Physician Referring Physician: Dr Taylor Identification/Chief Complaint Chief Complaint abd pain Problems: Source Source: Chart review, Patient History of Present Illness Reason for Visit: Admitted with abdominal pain and rectal bleeding. This has been going on for 2- 3 months. Labs showed anemia, he had vomiting, and came for evaluation. Reports only eats 1 meal a day since his cholecystectomy, has increased urgency for stool after meals Colonoscopy yesterday with prep showing sigmoid mass Past Medical History Past Medical History no pertinent hx Past Surgical History Past Surgical History: Cholecystectomy Family History Family History: Cancer (mother - colon, father - liver) Social History 1 pack per day ALCOHOL: heavy (6 pack beer per week) Drugs: None Lives: Alone Current Problem List Problem List Problems Medical Problems: (1) Diverticulitis Status: Acute Current Medications Current Medications Current Medications Sodium Chloride 1,000 ml @ 1,000 mls/hr 1X ONCE IV Last administered on 07:48; Start 08/28/17 at 07:45; Stop 08/28/17 at 08:44; Status DC Ondansetron HCl (Zofran) 4 mg 1X ONCE IV Last administered on 08/28/17 07:48 ; Start 08/28/17 at 07:45; Stop 08/28/17 at 07:46; Status DC Pantoprazole Sodium (Protonix Vial) 40 mg 1X ONCE IVP Last administered on 07:50; Start 08/28/17 at 07:45; Stop 08/28/17 at 07:46; Status DC Morphine Sulfate 2 mg PRN Q15MIN PRN IV/SQ PAIN GREATER THAN 3/10; Start at 07:45; Stop 08/29/17 at 07:44; Status DC Ondansetron HCl (Zofran) 4 mg PRN Q8HRS PRN IV NAUSEA/VOMITING; Start 08/28/17 at 10:00; Stop 08/29/17 at 09:59; Status DC Morphine Sulfate 2 mg PRN Q2HR PRN IV PAIN; Start 08/28/17 at 10:00; Stop 08/29 at 09:59; Status DC Sodium Chloride 1,000 ml @ 125 mls/hr Q8H IV Last administered on 08/29/17 02 :05; Start 08/28/17 at 09:49; Stop 08/29/17 at 09:48; Status DC Ciprofloxacin/ Dextrose 200 ml @ 200 mls/hr 1X ONCE IV Last administered on 08/28/17 10:24; Start 08/28/17 at 10:00; Stop 08/28/17 at 10:59; Status DC Metronidazole 100 ml @ 100 mls/hr Q8HRS IV Last administered on 08/30/17 05: 23; Start 08/28/17 at 11:00 Metronidazole 100 ml @ 100 mls/hr 1X ONCE IV ; Start 08/28/17 at 10:00; Stop 08/28/17 at 10:59; Status Cancel Ciprofloxacin/ Dextrose 200 ml @ 200 mls/hr Q12HR IV Last administered on 07:54; Start 08/28/17 at 21:00 Famotidine (Pepcid) 20 mg BID IVP Last administered on 08/30/17 07:54; Start 08/28/17 at 12:00 Polyethylene Glycol (miraLAX Powder BULK BOTTLE) 238 gm 1X ONCE PO Last administered on 08/28/17 17:26; Start 08/28/17 at 16:00; Stop 08/28/17 at 16:01 ; Status DC Bisacodyl (Dulcolax Tab) 10 mg 1X ONCE PO Last administered on 08/28/17 14:56 ; Start 08/28/17 at 15:00; Stop 08/28/17 at 15:01; Status DC Lactobacillus Rhamnosus (Culturelle) 1 cap BID PO Last administered on 21:03; Start 08/28/17 at 21:00 Fentanyl Citrate (Fentanyl 2ml Vial) 25 mcg PRN Q5MIN PRN IV MILD PAIN; Start 08/29/17 at 07:00; Stop 08/29/17 at 18:00; Status DC Fentanyl Citrate (Fentanyl 2ml Vial) 50 mcg PRN Q5MIN PRN IV MODERATE PAIN; Start 08/29/17 at 07:00; Stop 08/29/17 at 18:00; Status DC Morphine Sulfate 1 mg PRN Q10MIN PRN IV SEVERE PAIN; Start 08/29/17 at 07:00; Stop 08/29/17 at 18:00; Status DC Ringer's Solution 1,000 ml @ 30 mls/hr Q24H IV Last administered on 08/29/17t 13:58; Start 08/29/17 at 07:00; Stop 08/29/17 at 18:59; Status DC Lidocaine HCl (Xylocaine-Mpf 1% Vial) 2 ml PRN 1X PRN ID IV START; Start at 07:00; Stop 08/29/17 at 18:00; Status DC Hydromorphone HCl (Dilaudid) 0.5 mg PRN Q10MIN PRN IV SEV PAIN, Second choice; Start 08/29/17 at 07:00; Stop 08/29/17 at 18:00; Status DC Prochlorperazine Edisylate (Compazine) 5 mg PACU PRN PRN IV NAUSEA, MRX1; Start 08/29/17 at 07:00; Stop 08/29/17 at 18:00; Status DC Nicotine (Nicoderm Cq 21mg) 1 patch PRN DAILY PRN TD SMOKING CESSATION; Start 08/28/17 at 16:00 Nicotine Polacrilex (Nicorette Gum) 1 each PRN Q1HR PRN BC SMOKING CESSATION Last administered on 08/29/17t 08:37; Start 08/28/17 at 16:00 Midazolam HCl (Versed) 2 mg PRN 1X PRN IV PRIOR TO PROCEDURE; Start 08/29/17 at 10:45; Stop 08/30/17 at 10:44 Fentanyl Citrate (Fentanyl 2ml Vial) 25 mcg PRN Q5MIN PRN IV X 2 DOSES FOR PAIN ; Start 08/29/17 at 10:45; Stop 08/30/17 at 10:44 Fentanyl Citrate (Fentanyl 2ml Vial) 50 mcg PRN Q5MIN PRN IV X 2 DOSES FOR PAIN ; Start 08/29/17 at 10:45; Stop 08/30/17 at 10:44 Ringer's Solution 1,000 ml @ 125 mls/hr Q8H IV ; Start 08/29/17 at 10:32; Stop 08/29/17 at 20:00; Status DC Lidocaine HCl (Xylocaine-Mpf 1% Vial) 2 ml 1X PRN PRN ID IV START; Start at 10:45; Stop 08/30/17 at 10:44 Propofol 20 ml @ As Directed STK-MED ONCE IV ; Start 08/29/17 at 14:27; Stop at 14:28; Status DC Lidocaine HCl (Lidocaine Pf 2% Vial) 5 ml STK-MED ONCE .ROUTE ; Start 08/29/17 at 14:27; Stop 08/29/17 at 14:28; Status DC Propofol 20 ml @ As Directed STK-MED ONCE IV ; Start 08/29/17 at 14:28; Stop at 14:29; Status DC Allergies Allergies: Coded Allergies: shellfish derived (Verified Allergy, Intermediate, 08/29/17) shrimp (Verified Allergy, Intermediate, 08/29/17) ROS General: YES: Other (+ 10 lbs weight loss), No: Chills PSYCHOLOGICAL ROS: No: Anxiety, Depression Eyes: No Blurry vision, No Double vision HEENT: No: Heacaches, Sore Throat Hematological and Lymphatic: No: Bleeding Problems, Blood Clots Respiratory: No: Cough, Shortness of breath Cardiovascular: No Chest Pain, No Palpitations Gastrointestinal: Yes Other (see hpi) Genitourinary: No Dysuria, No Hematuria Musculoskeletal: No Joint Pain, No Muscle Pain Neurological: No Memory Loss, No Numbness/Tingling Skin: No Nail Changes, No Rash Physical Exam General: Alert, Oriented X3, Cooperative, No acute distress HEENT: PERRLA, Mucous membr. moist/pink Lungs: Clear to auscultation, Normal air movement Heart: Regular rate, Normal S1, Normal S2, No murmurs Abdomen: Soft, Other (tender lower abdomen, ND) Extremities: No clubbing, No cyanosis Skin: No rashes, No breakdown Neuro: Normal speech, Sensation intact Psych/Mental Status: Mental status NL, Mood NL MUSCULOSKELETAL: No deformity, No swelling Vitals VITALS Vital Signs Date Time Temp Pulse Resp B/P (MAP) Pulse Ox O2 Delivery O2 Flow Rate FiO2 08/30/17 07:45 Room Air 08/30/17 07:00 98.0 75 18 117/71 (86) 97 98.0 Labs Labs Laboratory Tests Test 08/28/17 10:20 08/28/17 13:05 08/28/17 19:20 08/29/17 01:15 Iron Level 14 ug/dL (65-175) Total Iron Binding Capacity 418 ug/dL (250-450) Iron Saturation 3 % (15-34) Vitamin B12 Level 338 pg/mL (247-911) Serum Folate 12.46 ng/ml (3.2-20.0) Hemoglobin 8.5 g/dL (13.0-17.5) 8.3 g/dL (13.0-17.5) 8.3 g/dL (13.0-17.5) Hematocrit 27.5 % (39.0-53.0) 26.5 % (39.0-53.0) 27.2 % (39.0-53.0) Test 08/29/17 04:50 08/30/17 04:33 White Blood Count 5.7 x10^3/uL (4.0-11.0) Red Blood Count 4.27 x10^6/uL (4.30-5.70) Hemoglobin 8.5 g/dL (13.0-17.5) 8.3 g/dL (13.0-17.5) Hematocrit 27.5 % (39.0-53.0) 27.1 % (39.0-53.0) Mean Corpuscular Volume 64 fL (79-100) Mean Corpuscular Hemoglobin 20 pg (25-35) Mean Corpuscular Hemoglobin Concent 31 g/dL (31-37) 31 g/dL (31-37) Red Cell Distribution Width 18.7 % (11.5-14.5) Platelet Count 324 x10^3/uL (140-400) Neutrophils (%) (Auto) 63 % (31-73) Lymphocytes (%) (Auto) 27 % (24-48) Monocytes (%) (Auto) 7 % (0-9) Eosinophils (%) (Auto) 3 % (0-3) Basophils (%) (Auto) 1 % (0-3) Neutrophils # (Auto) 3.6 x10^3uL (1.8-7.7) Lymphocytes # (Auto) 1.5 x10^3/uL (1.0-4.8) Monocytes # (Auto) 0.4 x10^3/uL (0.0-1.1) Eosinophils # (Auto) 0.2 x10^3/uL (0.0-0.7) Basophils # (Auto) 0.0 x10^3/uL (0.0-0.2) Sodium Level 138 mmol/L (136-145) Potassium Level 4.0 mmol/L (3.5-5.1) Chloride Level 106 mmol/L (98-107) Carbon Dioxide Level 26 mmol/L (21-32) Anion Gap 6 (6-14) Blood Urea Nitrogen 9 mg/dL (8-26) Creatinine 0.8 mg/dL (0.7-1.3) Estimated GFR (Cockcroft-Gault) 99.6 Glucose Level 85 mg/dL (70-99) Calcium Level 8.1 mg/dL (8.5-10.1) Laboratory Tests Test 08/30/17 04:33 Hemoglobin 8.3 g/dL (13.0-17.5) Hematocrit 27.1 % (39.0-53.0) Mean Corpuscular Hemoglobin Concent 31 g/dL (31-37) Assessment/Plan Assessment/Plan sigmoid mass, anemia, rectal bleeding plans for sigmoid resection today Pt seen with BENJI Domínguez MD 08/30/17 1057: CONSULT Allergies Allergies: Coded Allergies: shellfish derived (Verified Allergy, Intermediate, 08/29/17) shrimp (Verified Allergy, Intermediate, 08/29/17) Assessment/Plan Assessment/Plan pt seen, interviewed and examined agree with above Discussed surgery risks including but not limited to bleeding, infection, anastomotic leak requiring further intervention, possible need for loop ileostomy. He understands and will proceed. Thanks for consult HUE SHIRLEY APRN Aug 30, 2017 09:35 BENJI SUH MD Aug 30, 2017 10:57
--- NOTE | 2017-08-30 10:13 | PDOC ---
Subjective: Subjective: Shaving in restroom, having surgery later. Objective: Vital Signs: Vital Signs Date Time Temp Pulse Resp B/P (MAP) Pulse Ox O2 Delivery O2 Flow Rate FiO2 08/30/17 07:45 Room Air 08/30/17 07:00 98.0 75 18 117/71 (86) 97 98.0 Labs: Laboratory Tests Test 08/30/17 04:33 Hemoglobin 8.3 g/dL Hematocrit 27.1 % Mean Corpuscular Hemoglobin Concent 31 g/dL Imaging: Flexible sigmoidoscopy: sigmoid colon mass with near lumen occlusion s/p bx/ tattoo at 25 cm PE: Talked through restroom door. GEN: NAD NEURO/PSYCH: A & O 3 A/P: Sigmoid mass -- Plans for resection today. Onc consult. ALEXIS ACEVEDO Aug 30, 2017 10:13
[2017-08-30] MEDS ORDERED: DEXAMETHASONE SOD PHOS 20 MG/5 ML VIAL. ONE (10:26)
[2017-08-30] MEDS ORDERED: PROPOFOL 20 ML IV ONE (10:26)
[2017-08-30] MEDS ORDERED: ONDANSETRON PF 4 MG/2 ML VIAL. ONE (10:26)
[2017-08-30] MEDS ORDERED: LIDOCAINE 2% PF Vial for OR 5 ML VIAL. ONE (10:26)
[2017-08-30] MEDS ORDERED: MIDAZOLAM HCL/PF 2 MG/2 ML VIAL. ONE (10:27)
[2017-08-30] MEDS ORDERED: fentaNYL PF VIAL 250 MCG/5 ML VIAL ONE (10:27)
[2017-08-30] MEDS ORDERED: SUCCINYLCHOLINE 200 MG/10 ML VIAL. ONE (10:28)
[2017-08-30] MEDS ORDERED: ROCURONIUM 50 MG/5 ML VIAL. ONE ×2 (10:28→11:20)
[2017-08-30 10:39] VITALS: BP 121/78
[2017-08-30] MEDS ORDERED: cefOXitin SODIUM 2 GM in IV DEXTROSE 5% 100 ML IV ONE (10:45)
[2017-08-30] MEDS: IV RINGERS,LACTATED 1000ML 1,000 ML IV SCH (10:50)
--- NOTE | 2017-08-30 10:57 | PDOC ---
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 and 10 lb unintentional weight loss as manifestation HGb stable PL:AN Await from resection LAbs tmr post op\ dw RN Vitals Vitals Vital Signs Date Time Temp Pulse Resp B/P (MAP) Pulse Ox O2 Delivery O2 Flow Rate FiO2 08/30/17 10:39 97.6 80 18 121/78 (92) 100 Room Air 97.6 Physical Exam General: Alert, Oriented X3, Cooperative, No acute distress Heart: Regular rate, Normal S1, Normal S2, No murmurs Lungs: Clear Abdomen: Soft, Other (tender lower abdomen, ND) Extremities: No clubbing, No cyanosis Skin: No rashes, No breakdown Labs LABS Laboratory Tests Test 08/30/17 04:33 Hemoglobin 8.3 g/dL (13.0-17.5) Hematocrit 27.1 % (39.0-53.0) Mean Corpuscular Hemoglobin Concent 31 g/dL (31-37) Assessment and Plan Assessmemt and Plan Problems Medical Problems: (1) Diverticulitis Status: Acute Problems: Comment Review of Relevant I have reviewed the following items deloris (where applicable) has been applied. Labs Laboratory Tests Test 08/28/17 13:05 08/28/17 19:20 08/29/17 01:15 08/29/17 04:50 Hemoglobin 8.5 g/dL (13.0-17.5) 8.3 g/dL (13.0-17.5) 8.3 g/dL (13.0-17.5) 8.5 g/dL (13.0-17.5) Hematocrit 27.5 % (39.0-53.0) 26.5 % (39.0-53.0) 27.2 % (39.0-53.0) 27.5 % (39.0-53.0) White Blood Count 5.7 x10^3/uL (4.0-11.0) Red Blood Count 4.27 x10^6/uL (4.30-5.70) Mean Corpuscular Volume 64 fL (79-100) Mean Corpuscular Hemoglobin 20 pg (25-35) Mean Corpuscular Hemoglobin Concent 31 g/dL (31-37) Red Cell Distribution Width 18.7 % (11.5-14.5) Platelet Count 324 x10^3/uL (140-400) Neutrophils (%) (Auto) 63 % (31-73) Lymphocytes (%) (Auto) 27 % (24-48) Monocytes (%) (Auto) 7 % (0-9) Eosinophils (%) (Auto) 3 % (0-3) Basophils (%) (Auto) 1 % (0-3) Neutrophils # (Auto) 3.6 x10^3uL (1.8-7.7) Lymphocytes # (Auto) 1.5 x10^3/uL (1.0-4.8) Monocytes # (Auto) 0.4 x10^3/uL (0.0-1.1) Eosinophils # (Auto) 0.2 x10^3/uL (0.0-0.7) Basophils # (Auto) 0.0 x10^3/uL (0.0-0.2) Sodium Level 138 mmol/L (136-145) Potassium Level 4.0 mmol/L (3.5-5.1) Chloride Level 106 mmol/L (98-107) Carbon Dioxide Level 26 mmol/L (21-32) Anion Gap 6 (6-14) Blood Urea Nitrogen 9 mg/dL (8-26) Creatinine 0.8 mg/dL (0.7-1.3) Estimated GFR (Cockcroft-Gault) 99.6 Glucose Level 85 mg/dL (70-99) Calcium Level 8.1 mg/dL (8.5-10.1) Test 08/30/17 04:33 Hemoglobin 8.3 g/dL (13.0-17.5) Hematocrit 27.1 % (39.0-53.0) Mean Corpuscular Hemoglobin Concent 31 g/dL (31-37) Laboratory Tests Test 08/30/17 04:33 Hemoglobin 8.3 g/dL (13.0-17.5) Hematocrit 27.1 % (39.0-53.0) Mean Corpuscular Hemoglobin Concent 31 g/dL (31-37) Medications Current Medications Sodium Chloride 1,000 ml @ 1,000 mls/hr 1X ONCE IV Last administered on 07:48; Start 08/28/17 at 07:45; Stop 08/28/17 at 08:44; Status DC Ondansetron HCl (Zofran) 4 mg 1X ONCE IV Last administered on 08/28/17 07:48 ; Start 08/28/17 at 07:45; Stop 08/28/17 at 07:46; Status DC Pantoprazole Sodium (Protonix Vial) 40 mg 1X ONCE IVP Last administered on 07:50; Start 08/28/17 at 07:45; Stop 08/28/17 at 07:46; Status DC Morphine Sulfate 2 mg PRN Q15MIN PRN IV/SQ PAIN GREATER THAN 3/10; Start at 07:45; Stop 08/29/17 at 07:44; Status DC Ondansetron HCl (Zofran) 4 mg PRN Q8HRS PRN IV NAUSEA/VOMITING; Start 08/28/17 at 10:00; Stop 08/29/17 at 09:59; Status DC Morphine Sulfate 2 mg PRN Q2HR PRN IV PAIN; Start 08/28/17 at 10:00; Stop 08/29 at 09:59; Status DC Sodium Chloride 1,000 ml @ 125 mls/hr Q8H IV Last administered on 08/29/17 02 :05; Start 08/28/17 at 09:49; Stop 08/29/17 at 09:48; Status DC Ciprofloxacin/ Dextrose 200 ml @ 200 mls/hr 1X ONCE IV Last administered on 08/28/17 10:24; Start 08/28/17 at 10:00; Stop 08/28/17 at 10:59; Status DC Metronidazole 100 ml @ 100 mls/hr Q8HRS IV Last administered on 08/30/17 05: 23; Start 08/28/17 at 11:00 Metronidazole 100 ml @ 100 mls/hr 1X ONCE IV ; Start 08/28/17 at 10:00; Stop 08/28/17 at 10:59; Status Cancel Ciprofloxacin/ Dextrose 200 ml @ 200 mls/hr Q12HR IV Last administered on 07:54; Start 08/28/17 at 21:00 Famotidine (Pepcid) 20 mg BID IVP Last administered on 08/30/17 07:54; Start 08/28/17 at 12:00 Polyethylene Glycol (miraLAX Powder BULK BOTTLE) 238 gm 1X ONCE PO Last administered on 08/28/17 17:26; Start 08/28/17 at 16:00; Stop 08/28/17 at 16:01 ; Status DC Bisacodyl (Dulcolax Tab) 10 mg 1X ONCE PO Last administered on 08/28/17 14:56 ; Start 08/28/17 at 15:00; Stop 08/28/17 at 15:01; Status DC Lactobacillus Rhamnosus (Culturelle) 1 cap BID PO Last administered on 21:03; Start 08/28/17 at 21:00 Fentanyl Citrate (Fentanyl 2ml Vial) 25 mcg PRN Q5MIN PRN IV MILD PAIN; Start 08/29/17 at 07:00; Stop 08/29/17 at 18:00; Status DC Fentanyl Citrate (Fentanyl 2ml Vial) 50 mcg PRN Q5MIN PRN IV MODERATE PAIN; Start 08/29/17 at 07:00; Stop 08/29/17 at 18:00; Status DC Morphine Sulfate 1 mg PRN Q10MIN PRN IV SEVERE PAIN; Start 08/29/17 at 07:00; Stop 08/29/17 at 18:00; Status DC Ringer's Solution 1,000 ml @ 30 mls/hr Q24H IV Last administered on 08/29/17 13:58; Start 08/29/17 at 07:00; Stop 08/29/17 at 18:59; Status DC Lidocaine HCl (Xylocaine-Mpf 1% Vial) 2 ml PRN 1X PRN ID IV START; Start at 07:00; Stop 08/29/17 at 18:00; Status DC Hydromorphone HCl (Dilaudid) 0.5 mg PRN Q10MIN PRN IV SEV PAIN, Second choice; Start 08/29/17 at 07:00; Stop 08/29/17 at 18:00; Status DC Prochlorperazine Edisylate (Compazine) 5 mg PACU PRN PRN IV NAUSEA, MRX1; Start 08/29/17 at 07:00; Stop 08/29/17 at 18:00; Status DC Nicotine (Nicoderm Cq 21mg) 1 patch PRN DAILY PRN TD SMOKING CESSATION; Start 08/28/17 at 16:00 Nicotine Polacrilex (Nicorette Gum) 1 each PRN Q1HR PRN BC SMOKING CESSATION Last administered on 08/29/17t 08:37; Start 08/28/17 at 16:00 Midazolam HCl (Versed) 2 mg PRN 1X PRN IV PRIOR TO PROCEDURE; Start 08/29/17 at 10:45; Stop 08/30/17 at 10:44; Status DC Fentanyl Citrate (Fentanyl 2ml Vial) 25 mcg PRN Q5MIN PRN IV X 2 DOSES FOR PAIN ; Start 08/29/17 at 10:45; Stop 08/30/17 at 10:44; Status DC Fentanyl Citrate (Fentanyl 2ml Vial) 50 mcg PRN Q5MIN PRN IV X 2 DOSES FOR PAIN ; Start 08/29/17 at 10:45; Stop 08/30/17 at 10:44; Status DC Ringer's Solution 1,000 ml @ 125 mls/hr Q8H IV ; Start 08/29/17 at 10:32; Stop 08/29/17 at 20:00; Status DC Lidocaine HCl (Xylocaine-Mpf 1% Vial) 2 ml 1X PRN PRN ID IV START; Start at 10:45; Stop 08/30/17 at 10:44; Status DC Propofol 20 ml @ As Directed STK-MED ONCE IV ; Start 08/29/17 at 14:27; Stop at 14:28; Status DC Lidocaine HCl (Lidocaine Pf 2% Vial) 5 ml STK-MED ONCE .ROUTE ; Start 08/29/17 at 14:27; Stop 08/29/17 at 14:28; Status DC Propofol 20 ml @ As Directed STK-MED ONCE IV ; Start 08/29/17 at 14:28; Stop at 14:29; Status DC Propofol 20 ml @ As Directed STK-MED ONCE IV ; Start 08/30/17 at 10:26; Stop 08/30/17 at 10:27; Status DC Lidocaine HCl (Lidocaine Pf 2% Vial) 5 ml STK-MED ONCE .ROUTE ; Start 08/30/17 at 10:26; Stop 08/30/17 at 10:27; Status DC Dexamethasone Sodium Phosphate (Decadron) 20 mg STK-MED ONCE .ROUTE ; Start 08/06 at 10:26; Stop 08/30/17 at 10:27; Status DC Ondansetron HCl (Zofran) 4 mg STK-MED ONCE .ROUTE ; Start 08/30/17 at 10:26; Stop 08/30/17 at 10:27; Status DC Midazolam HCl (Versed) 2 mg STK-MED ONCE .ROUTE ; Start 08/30/17 at 10:27; Stop 08/30/17 at 10:28; Status DC Fentanyl Citrate (Fentanyl 5ml Vial) 250 mcg STK-MED ONCE .ROUTE ; Start at 10:27; Stop 08/30/17 at 10:28; Status DC Succinylcholine Chloride (Anectine) 200 mg STK-MED ONCE .ROUTE ; Start at 10:28; Stop 08/30/17 at 10:29; Status DC Rocuronium Nora (Zemuron) 50 mg STK-MED ONCE .ROUTE ; Start 08/30/17 at 10: 28; Stop 08/30/17 at 10:29; Status DC Cefoxitin Sodium 2 gm/Dextrose 100 ml @ 200 mls/hr 1X ONCE IV ; Start at 10:45; Stop 08/30/17 at 11:14; Status UNV Cefoxitin Sodium 100 ml @ 200 mls/hr ONCE ONCE IV ; Start 08/30/17 at 11:00; Stop 08/30/17 at 11:29 Vitals/I & O Vital Sign - Last 24 Hours 08/29/17 08/29/17 08/29/17 08/29/17 13:51 14:50 15:00 15:05 Temp 98 98.0 97.5 98.0 98.0 97.5 Pulse 64 75 64 68 Resp 18 20 18 20 B/P (MAP) 97/55 122/70 (87) 108/70 Pulse Ox 98 100 100 99 O2 Delivery Room Air Room Air Room Air 08/29/17 08/29/17 08/29/17 08/29/17 15:20 19:00 20:00 23:00 Temp 97.7 97.5 97.7 97.5 Pulse 71 68 75 Resp 18 18 18 B/P (MAP) 112/74 114/63 (80) 106/70 (82) Pulse Ox 99 98 98 O2 Delivery Room Air Room Air Room Air Room Air 08/30/17 08/30/17 08/30/17 08/30/17 03:00 07:00 07:45 10:39 Temp 97.7 98.0 97.6 97.7 98.0 97.6 Pulse 73 75 80 Resp 18 18 18 B/P (MAP) 104/59 (74) 117/71 (86) 121/78 (92) Pulse Ox 99 97 100 O2 Delivery Room Air Room Air Room Air Room Air BRAYDON OVALLE MD Aug 30, 2017 10:57
[2017-08-30] MEDS ORDERED: GLYCOPYRROLATE 1 MG/5 ML VIAL. ONE (12:54)
[2017-08-30] MEDS ORDERED: NEOSTIGMINE 10 MG/10 ML VIAL. ONE (12:54)
[2017-08-30] MEDS ORDERED: SEVOFLURANE > 120 MINUTES. IH ONE (13:00)
[2017-08-30] MEDS ORDERED: MORPHINE SULFATE 10 MG/ML VIAL. ONE (13:35)
[2017-08-30] MEDS ORDERED: [UNRECOGNIZED DRUG - OTHER] IV ONE (13:46)
[2017-08-30] MEDS ORDERED: CEFOXITIN 1 GM IV ONE (13:46)
[2017-08-30] MEDS ORDERED: 0.9 % SODIUM CHLORIDE 50 ML VIAL. IJ ONE (14:18)
[2017-08-30] MEDS ORDERED: PHENYLEPHRINE 10 MG/ML VIAL. ONE (14:18)
--- NOTE | 2017-08-30 14:48 | PATHOLOGY ---
PATHOLOGY REPORT * * * * * * * * FINAL DIAGNOSIS: Colonic mucosa "sigmoid colon mass biopsy": - Moderately differentiated invasive adenocarcinoma. - See comment. COMMENT: This case was also reviewed by Dr. Brittany Castillo. Nurse Stephanie Funes was informed of the diagnosis on 08/30/2017 at approximately 3:00 pm. (SHA:pit; 08/30/2017) REPORT ELECTRONICALLY SIGNED BY: Juan Belle M.D. DATE/TIME: 08/30/2017 14:47 * * * * * * * * GROSS PATHOLOGY: Received in formalin labeled "Andry Anaya, sigmoid colon mass BX," are 3 segments of baptiste soft tissue measuring 0.6 x 0.5 x 0.2 cm in aggregate dimensions and ranging from 0.2 to 0.3 cm in maximum dimension. The specimen is submitted entirely in cassette A1. (TSD; 08/29/2017) INITIAL CPT CODE(S): A; 00878 Professional services performed by [facility] [place] [address] Technical services performed by [facility] [facility] at [address] [place] [address]. SPECIMEN(S) RECEIVED: A.Sigmoid colon mass biopsy CLINICAL HISTORY: Rectal bleeding; sigmoid mass PATIENT: ANDRY ANAYA /AGE: 1109/14/1960 (Age: 56) PATIENT #: [id number] ALT CASE #: SPECIMEN COLLECTION DATE: 08/29/2017 SPECIMEN RECEIVED DATE: 08/29/2017 [facility] - [address] [place] [address] - PHONE: [phone] * * * END OF REPORT * * *
[2017-08-30] MEDS ORDERED: MORPHINE SULFATE 2 MG/ML DISP.SYRIN. ONE (15:07)
[2017-08-30] MEDS ORDERED: fentaNYL PF VIAL 100 MCG/2 ML VIAL ONE ×2 (15:08→16:03)
[2017-08-30] MEDS: fentaNYL PF VIAL 100 MCG/2 ML VIAL IV PRN ×3 (15:11→16:20)
[2017-08-30] MEDS ORDERED: IV RINGERS,LACTATED 1000ML 1,000 ML IV SCH ×2 (15:11→15:16)
[2017-08-30] MEDS ORDERED: HYDROmorphone 2 MG/ML VIAL IV PRN ×2 (15:15→15:30)
[2017-08-30] MEDS ORDERED: ONDANSETRON PF 4 MG/2 ML VIAL. IV PRN ×2 (15:15→15:30)
[2017-08-30] MEDS ORDERED: LIDOCAINE 1% PF 2 ML VIAL. ID PRN ×2 (15:15→15:30)
[2017-08-30] MEDS ORDERED: fentaNYL PF VIAL 100 MCG/2 ML VIAL IV PRN ×3 (15:15→15:30)
[2017-08-30] MEDS ORDERED: PROCHLORPERAZINE 10 MG/2 ML VIAL. IV PRN ×2 (15:15→15:30)
[2017-08-30] MEDS ORDERED: PHENOL ORAL SPRAY 177ML BOTTLE. PO PRN (15:30)
[2017-08-30] MEDS ORDERED: 0.9 % SODIUM CHLORIDE 10 ML DISP.SYRIN. IV PRN (15:30)
[2017-08-30] MEDS ORDERED: MORPHINE SULFATE 2 MG/ML DISP.SYRIN. IV PRN (15:30)
[2017-08-30] MEDS ORDERED: BENZOCAINE/MENTHOL LOZENGE. PO PRN (15:30)
--- NOTE | 2017-08-30 15:38 | PDOC ---
BRIEF OPERATIVE NOTE Date: Aug 30, 2017 Pre-Op Diagnosis sigmoid mass Post-Op Diagnosis cancer of the sigmoid Procedure Performed rigid procto sigmoid resection with primary anastomosis small bowel resection with primary anastomosis mobilization of the splenic flexure Surgeon Todd Machine Maintenance Supervisor Andressa Douglas [facility] Anesthesia Type: General Blood Loss 550cc IV Fluid 2400cc Urine Output 400cc Specimens Obtained sigmoid colon with small bowel Findings large mass with locally advanced Complications ligation of left spermatic cord Operative Note Wk # BENJI SUH MD Aug 30, 2017 15:38
[2017-08-30] MEDS: MORPHINE SULFATE 4 MG/ML DISP.SYRIN. IV PRN ×2 (15:46→15:56)
--- NOTE | 2017-08-30 16:38 | RAD ---
Single view of the abdomen 08/30/2017 Indication: Intraoperative radiograph, colon resection Discussion: There is an enteric tube with tip in the proximal most stomach. Prior cholecystectomy noted. Surgical drain projecting over the pelvis. Mild gaseous distention of the transverse colon and hepatic flexure noted. No acute osseous changes are seen. Evaluation for pneumoperitoneum is limited given supine technique. Impression: Postsurgical changes described. Mild gaseous distention of the hepatic flexure and transverse colon.
--- NOTE | 2017-08-30 17:12 | PDOC ---
Provider Note Provider Note Med Onc consult See dictation 1. Colon ca - await path report FARHAN BARTLETT MD Aug 30, 2017 17:12
[2017-08-30] MEDS: POTASSIUM CL 20MEQ-0.45% NACL 1,000 ML IV SCH (18:00)
[2017-08-30 19:15] VITALS: BP 111/72
[2017-08-30 23:59] VITALS: BP 102/56
[2017-08-31] MEDS: IV RINGERS,LACTATED 1000ML 1,000 ML IV SCH ×2 (01:05→18:12)
[2017-08-31] MEDS: POTASSIUM CL 20MEQ-0.45% NACL 1,000 ML IV SCH (04:10)
[2017-08-31 04:59] VITALS: BP 107/59
[2017-08-31 05:05] LABS: BASO % 0 % (0-3); EOS % 0 % (0-3); HEMATOCRIT 25.7 % (39.0-53.0); HEMOGLOBIN 7.8 g/dL (13.0-17.5); LYMPH % 10 % (24-48); MEAN CORPUSCULAR HEMOGLOBIN 20 pg (25-35); MEAN CORPUSCULAR HGB CONC 30 g/dL (31-37); MEAN CORPUSCULAR VOLUME 65 fL (79-100); MONO % 4 % (0-9); NEUT % 86 % (31-73); PLATELET COUNT 296 x10^3/uL (140-400); RED BLOOD COUNT 3.95 x10^6/uL (4.30-5.70); RED CELL DISTRIBUTION WIDTH 18.1 % (11.5-14.5); WHITE BLOOD COUNT 9.7 x10^3/uL (4.0-11.0)
[2017-08-31 05:57] LABS: ALBUMIN 2.3 g/dL (3.4-5.0); ALBUMIN/GLOBULIN RATIO 0.6 (1.0-1.7); CALCIUM 8.2 mg/dL (8.5-10.1); CREATININE 0.9 mg/dL (0.7-1.3); MAGNESIUM 1.7 mg/dL (1.8-2.4); PHOSPHORUS 4.5 mg/dL (2.6-4.7); TOTAL BILIRUBIN 0.3 mg/dL (0.2-1.0); TOTAL PROTEIN 6.2 g/dL (6.4-8.2)
[2017-08-31 05:59] LABS: POTASSIUM 5.2 mmol/L (3.5-5.1)
--- NOTE | 2017-08-31 06:36 | CONS ---
DATE OF CONSULTATION: 08/30/2017 REQUESTING PHYSICIAN: Dr. Kartik Donnelly. REASON FOR CONSULTATION: Colon cancer. HISTORY OF PRESENT ILLNESS: The patient is a 56-year-old gentleman who has had intermittent abdominal cramping for about 2-3 months prior to his admission on 08/28/2017. He then started having vomiting and he presented to the Emergency Room at [facility] on 08/28/2017. He does not have any previous history of gastroesophageal reflux disease. He has a history of cholecystectomy. He denies any constipation or diarrhea. No hematemesis, melena or hematochezia. He has had a history of colonoscopy in 2008 at [facility]. With the above complaints, he underwent a CT scan of the abdomen and pelvis on 08/28/2017, which revealed segmental wall thickening of the mid sigmoid colon. Gastroenterology was consulted and he underwent colonoscopy by Dr. Gerard Taylor on 08/29/2017, which revealed sigmoid colon mass with near lumen occlusion. Surgery was consulted and the patient underwent sigmoid resection along with small bowel resection with primary anastomosis and mobilization of the splenic flexure on 08/30/[address] Brooks. Pathology report from the colonoscopy biopsy revealed moderately differentiated invasive adenocarcinoma. PAST MEDICAL HISTORY: Cholelithiasis, cholecystectomy and hemorrhoidectomy. FAMILY HISTORY: Mother had colon cancer. Father had liver cancer. SOCIAL HISTORY: He has history of smoking one pack of cigarettes per day. He also drinks 6-pack beer weekly. REVIEW OF SYSTEMS: A 14-point review of system was performed. Pertinent positives are mentioned in the history of present illness. Rest of the system review is negative. PHYSICAL EXAMINATION: GENERAL APPEARANCE: The patient is a 56-year-old gentleman who is in no acute cardiorespiratory distress. VITAL SIGNS: Blood pressure 130/73 and temperature 98.2. HEENT: Head is atraumatic and normocephalic. Eyes: No icterus. NECK: Supple. CHEST: Bilaterally symmetrical. No crepitations or rhonchi heard. HEART: S1, S2 normal. ABDOMEN: Soft, postop. CENTRAL NERVOUS SYSTEM: No focal deficits. LYMPHATICS: No lymphadenopathy. SKIN: No rashes. PSYCHOLOGIC: Mood and affect are appropriate. MUSCULOSKELETAL: No joint effusions. LABORATORY DATA: CBC on 08/28/2017 revealed a WBC of 9.2, hemoglobin 10.2, MCV 64, platelet count 408 and reticulocyte count 1.5. Sodium 136, potassium 4.6, creatinine 0.9, calcium 9.1. Iron 14, TIBC 418, iron saturation 3, B12 338, folic acid 12.46, total protein 8.3 and albumin 3.6. IMPRESSION AND PLAN: 1. Adenocarcinoma of the sigmoid colon diagnosed by colonoscopy by Dr. Gerard Taylor on 08/29/2017, status post sigmoid colon resection by Dr. Brooks on 08/30/2017. I will await final pathology results from the surgery, which would help with staging and also decide upon the role of adjuvant chemotherapy. I discussed in detail with the patient and two of his sisters. All their questions were answered. 2. Microcytic anemia secondary to iron deficiency. Hemoglobin 10.2 on 08/28/2017 and 8.3 on 08/30/2017. Continue to monitor hemoglobin. Plan iron supplementation. FARHAN BARTLETT MD DR: CHADD/sonia JOB#: [id number] / [id number] SHEN
[2017-08-31 07:00] VITALS: BP 116/67
[2017-08-31] MEDS: LACTOBACILLUS RHAMNOSUS GG 1 CAPSULE. PO SCH ×2 (08:52→20:07)
[2017-08-31] MEDS: FAMOTIDINE 20 MG/2 ML VIAL IVP SCH ×2 (09:09→20:05)
[2017-08-31] MEDS: ENOXAPARIN 40 MG/0.4 ML SYRINGE. SQ SCH (09:13)
[2017-08-31] MEDS: CIPROFLOXACIN 400MG PREMIX 200 ML IV SCH ×2 (09:17→20:03)
[2017-08-31 11:00] VITALS: BP 124/76
--- NOTE | 2017-08-31 11:19 | PDOC ---
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 SETTER doesn't like NG Vital Signs Vital Signs Date Time Temp Pulse Resp B/P (MAP) Pulse Ox O2 Delivery O2 Flow Rate FiO2 08/31/17 11:00 97.2 82 22 124/76 (92) 98 97.2 08/31/17 08:00 Nasal Cannula 2.0 PATIENT HAS A PATE: Yes General: Alert, Oriented X3, No acute distress HEENT: Other (NG with some bilious return) Abdomen: Soft Labs Laboratory Tests Test 08/30/17 04:33 08/31/17 04:20 Hemoglobin 8.3 g/dL (13.0-17.5) 7.8 g/dL (13.0-17.5) Hematocrit 27.1 % (39.0-53.0) 25.7 % (39.0-53.0) Mean Corpuscular Hemoglobin Concent 31 g/dL (31-37) 30 g/dL (31-37) White Blood Count 9.7 x10^3/uL (4.0-11.0) Red Blood Count 3.95 x10^6/uL (4.30-5.70) Mean Corpuscular Volume 65 fL (79-100) Mean Corpuscular Hemoglobin 20 pg (25-35) Red Cell Distribution Width 18.1 % (11.5-14.5) Platelet Count 296 x10^3/uL (140-400) Neutrophils (%) (Auto) 86 % (31-73) Lymphocytes (%) (Auto) 10 % (24-48) Monocytes (%) (Auto) 4 % (0-9) Eosinophils (%) (Auto) 0 % (0-3) Basophils (%) (Auto) 0 % (0-3) Neutrophils # (Auto) 8.3 x10^3uL (1.8-7.7) Lymphocytes # (Auto) 1.0 x10^3/uL (1.0-4.8) Monocytes # (Auto) 0.4 x10^3/uL (0.0-1.1) Eosinophils # (Auto) 0.0 x10^3/uL (0.0-0.7) Basophils # (Auto) 0.0 x10^3/uL (0.0-0.2) Sodium Level 137 mmol/L (136-145) Potassium Level 5.2 mmol/L (3.5-5.1) Chloride Level 104 mmol/L (98-107) Carbon Dioxide Level 28 mmol/L (21-32) Anion Gap 5 (6-14) Blood Urea Nitrogen 9 mg/dL (8-26) Creatinine 0.9 mg/dL (0.7-1.3) Estimated GFR (Cockcroft-Gault) 87.0 BUN/Creatinine Ratio 10 (6-20) Glucose Level 116 mg/dL (70-99) Calcium Level 8.2 mg/dL (8.5-10.1) Phosphorus Level 4.5 mg/dL (2.6-4.7) Magnesium Level 1.7 mg/dL (1.8-2.4) Total Bilirubin 0.3 mg/dL (0.2-1.0) Aspartate Amino Transf (AST/SGOT) 18 U/L (15-37) Alanine Aminotransferase (ALT/SGPT) 11 U/L (16-63) Alkaline Phosphatase 59 U/L (46-116) Total Protein 6.2 g/dL (6.4-8.2) Albumin 2.3 g/dL (3.4-5.0) Albumin/Globulin Ratio 0.6 (1.0-1.7) Laboratory Tests Test 08/31/17 04:20 White Blood Count 9.7 x10^3/uL (4.0-11.0) Red Blood Count 3.95 x10^6/uL (4.30-5.70) Hemoglobin 7.8 g/dL (13.0-17.5) Hematocrit 25.7 % (39.0-53.0) Mean Corpuscular Volume 65 fL (79-100) Mean Corpuscular Hemoglobin 20 pg (25-35) Mean Corpuscular Hemoglobin Concent 30 g/dL (31-37) Red Cell Distribution Width 18.1 % (11.5-14.5) Platelet Count 296 x10^3/uL (140-400) Neutrophils (%) (Auto) 86 % (31-73) Lymphocytes (%) (Auto) 10 % (24-48) Monocytes (%) (Auto) 4 % (0-9) Eosinophils (%) (Auto) 0 % (0-3) Basophils (%) (Auto) 0 % (0-3) Neutrophils # (Auto) 8.3 x10^3uL (1.8-7.7) Lymphocytes # (Auto) 1.0 x10^3/uL (1.0-4.8) Monocytes # (Auto) 0.4 x10^3/uL (0.0-1.1) Eosinophils # (Auto) 0.0 x10^3/uL (0.0-0.7) Basophils # (Auto) 0.0 x10^3/uL (0.0-0.2) Sodium Level 137 mmol/L (136-145) Potassium Level 5.2 mmol/L (3.5-5.1) Chloride Level 104 mmol/L (98-107) Carbon Dioxide Level 28 mmol/L (21-32) Anion Gap 5 (6-14) Blood Urea Nitrogen 9 mg/dL (8-26) Creatinine 0.9 mg/dL (0.7-1.3) Estimated GFR (Cockcroft-Gault) 87.0 BUN/Creatinine Ratio 10 (6-20) Glucose Level 116 mg/dL (70-99) Calcium Level 8.2 mg/dL (8.5-10.1) Phosphorus Level 4.5 mg/dL (2.6-4.7) Magnesium Level 1.7 mg/dL (1.8-2.4) Total Bilirubin 0.3 mg/dL (0.2-1.0) Aspartate Amino Transf (AST/SGOT) 18 U/L (15-37) Alanine Aminotransferase (ALT/SGPT) 11 U/L (16-63) Alkaline Phosphatase 59 U/L (46-116) Total Protein 6.2 g/dL (6.4-8.2) Albumin 2.3 g/dL (3.4-5.0) Albumin/Globulin Ratio 0.6 (1.0-1.7) Problem List Problems Medical Problems: (1) Diverticulitis Status: Acute Assessment/Plan s/p sigmoid resection see orders Problems: BENJI SUH MD Aug 31, 2017 11:18
[2017-08-31] MEDS ORDERED: IV 1/2 NORMAL SALINE 500 ML IV ONE (11:30)
[2017-08-31] MEDS ORDERED: MAGNESIUM SULFATE 2GM 50 ML IV ONE (11:45)
--- NOTE | 2017-08-31 12:19 | PDOC ---
PROGRESS NOTES Chief Complaint Chief Complaint s/p Sigmoid mass resection, likely malignant (08/30) s/p C scope 08/29 for new sigmoid mass Microcytic anemia History of Present Illness History of Present Illness NGT in SWITCHMAN running but rarely pressing Doing IS wants to ambulate no flatus yet Aware of possible CA dx Awaiting pathology from sx Likely avail or sat - before tx plan can be planned - per heme onc note he most likely will stay till mid week next week Mag 1,7 K 5.2 HGb 7 plus post op PLAN: Keep NPO for now per Sx Keep SWITCHMAN - wont be on it too long - has good pain control/tolerance Cont IS Ambulate ad emmett Wound inspected - post sx site looks good, some soreness HH again tmr MAg 2 gms now IV Recheck K for now -kayexylate if still high Dw pt and calculation reviewer plan - agreeable Vitals Vitals Vital Signs Date Time Temp Pulse Resp B/P (MAP) Pulse Ox O2 Delivery O2 Flow Rate FiO2 08/31/17 11:00 97.2 82 22 124/76 (92) 98 97.2 08/31/17 08:00 Nasal Cannula 2.0 Physical Exam General: Alert, Oriented X3, No acute distress Heart: Regular rate, Normal S1, Normal S2, No murmurs Lungs: Clear Abdomen: Soft Extremities: No clubbing, No cyanosis Skin: No rashes, No breakdown Labs LABS Laboratory Tests Test 08/31/17 04:20 White Blood Count 9.7 x10^3/uL (4.0-11.0) Red Blood Count 3.95 x10^6/uL (4.30-5.70) Hemoglobin 7.8 g/dL (13.0-17.5) Hematocrit 25.7 % (39.0-53.0) Mean Corpuscular Volume 65 fL (79-100) Mean Corpuscular Hemoglobin 20 pg (25-35) Mean Corpuscular Hemoglobin Concent 30 g/dL (31-37) Red Cell Distribution Width 18.1 % (11.5-14.5) Platelet Count 296 x10^3/uL (140-400) Neutrophils (%) (Auto) 86 % (31-73) Lymphocytes (%) (Auto) 10 % (24-48) Monocytes (%) (Auto) 4 % (0-9) Eosinophils (%) (Auto) 0 % (0-3) Basophils (%) (Auto) 0 % (0-3) Neutrophils # (Auto) 8.3 x10^3uL (1.8-7.7) Lymphocytes # (Auto) 1.0 x10^3/uL (1.0-4.8) Monocytes # (Auto) 0.4 x10^3/uL (0.0-1.1) Eosinophils # (Auto) 0.0 x10^3/uL (0.0-0.7) Basophils # (Auto) 0.0 x10^3/uL (0.0-0.2) Sodium Level 137 mmol/L (136-145) Potassium Level 5.2 mmol/L (3.5-5.1) Chloride Level 104 mmol/L (98-107) Carbon Dioxide Level 28 mmol/L (21-32) Anion Gap 5 (6-14) Blood Urea Nitrogen 9 mg/dL (8-26) Creatinine 0.9 mg/dL (0.7-1.3) Estimated GFR (Cockcroft-Gault) 87.0 BUN/Creatinine Ratio 10 (6-20) Glucose Level 116 mg/dL (70-99) Calcium Level 8.2 mg/dL (8.5-10.1) Phosphorus Level 4.5 mg/dL (2.6-4.7) Magnesium Level 1.7 mg/dL (1.8-2.4) Total Bilirubin 0.3 mg/dL (0.2-1.0) Aspartate Amino Transf (AST/SGOT) 18 U/L (15-37) Alanine Aminotransferase (ALT/SGPT) 11 U/L (16-63) Alkaline Phosphatase 59 U/L (46-116) Total Protein 6.2 g/dL (6.4-8.2) Albumin 2.3 g/dL (3.4-5.0) Albumin/Globulin Ratio 0.6 (1.0-1.7) Review of Systems Review of Systems post op pain, no fevers, no cp, soa Assessment and Plan Assessmemt and Plan Problems Medical Problems: (1) Diverticulitis Status: Acute Problems: Comment Review of Relevant I have reviewed the following items deloris (where applicable) has been applied. Labs Laboratory Tests Test 08/30/17 04:33 08/31/17 04:20 Hemoglobin 8.3 g/dL (13.0-17.5) 7.8 g/dL (13.0-17.5) Hematocrit 27.1 % (39.0-53.0) 25.7 % (39.0-53.0) Mean Corpuscular Hemoglobin Concent 31 g/dL (31-37) 30 g/dL (31-37) White Blood Count 9.7 x10^3/uL (4.0-11.0) Red Blood Count 3.95 x10^6/uL (4.30-5.70) Mean Corpuscular Volume 65 fL (79-100) Mean Corpuscular Hemoglobin 20 pg (25-35) Red Cell Distribution Width 18.1 % (11.5-14.5) Platelet Count 296 x10^3/uL (140-400) Neutrophils (%) (Auto) 86 % (31-73) Lymphocytes (%) (Auto) 10 % (24-48) Monocytes (%) (Auto) 4 % (0-9) Eosinophils (%) (Auto) 0 % (0-3) Basophils (%) (Auto) 0 % (0-3) Neutrophils # (Auto) 8.3 x10^3uL (1.8-7.7) Lymphocytes # (Auto) 1.0 x10^3/uL (1.0-4.8) Monocytes # (Auto) 0.4 x10^3/uL (0.0-1.1) Eosinophils # (Auto) 0.0 x10^3/uL (0.0-0.7) Basophils # (Auto) 0.0 x10^3/uL (0.0-0.2) Sodium Level 137 mmol/L (136-145) Potassium Level 5.2 mmol/L (3.5-5.1) Chloride Level 104 mmol/L (98-107) Carbon Dioxide Level 28 mmol/L (21-32) Anion Gap 5 (6-14) Blood Urea Nitrogen 9 mg/dL (8-26) Creatinine 0.9 mg/dL (0.7-1.3) Estimated GFR (Cockcroft-Gault) 87.0 BUN/Creatinine Ratio 10 (6-20) Glucose Level 116 mg/dL (70-99) Calcium Level 8.2 mg/dL (8.5-10.1) Phosphorus Level 4.5 mg/dL (2.6-4.7) Magnesium Level 1.7 mg/dL (1.8-2.4) Total Bilirubin 0.3 mg/dL (0.2-1.0) Aspartate Amino Transf (AST/SGOT) 18 U/L (15-37) Alanine Aminotransferase (ALT/SGPT) 11 U/L (16-63) Alkaline Phosphatase 59 U/L (46-116) Total Protein 6.2 g/dL (6.4-8.2) Albumin 2.3 g/dL (3.4-5.0) Albumin/Globulin Ratio 0.6 (1.0-1.7) Laboratory Tests Test 08/31/17 04:20 White Blood Count 9.7 x10^3/uL (4.0-11.0) Red Blood Count 3.95 x10^6/uL (4.30-5.70) Hemoglobin 7.8 g/dL (13.0-17.5) Hematocrit 25.7 % (39.0-53.0) Mean Corpuscular Volume 65 fL (79-100) Mean Corpuscular Hemoglobin 20 pg (25-35) Mean Corpuscular Hemoglobin Concent 30 g/dL (31-37) Red Cell Distribution Width 18.1 % (11.5-14.5) Platelet Count 296 x10^3/uL (140-400) Neutrophils (%) (Auto) 86 % (31-73) Lymphocytes (%) (Auto) 10 % (24-48) Monocytes (%) (Auto) 4 % (0-9) Eosinophils (%) (Auto) 0 % (0-3) Basophils (%) (Auto) 0 % (0-3) Neutrophils # (Auto) 8.3 x10^3uL (1.8-7.7) Lymphocytes # (Auto) 1.0 x10^3/uL (1.0-4.8) Monocytes # (Auto) 0.4 x10^3/uL (0.0-1.1) Eosinophils # (Auto) 0.0 x10^3/uL (0.0-0.7) Basophils # (Auto) 0.0 x10^3/uL (0.0-0.2) Sodium Level 137 mmol/L (136-145) Potassium Level 5.2 mmol/L (3.5-5.1) Chloride Level 104 mmol/L (98-107) Carbon Dioxide Level 28 mmol/L (21-32) Anion Gap 5 (6-14) Blood Urea Nitrogen 9 mg/dL (8-26) Creatinine 0.9 mg/dL (0.7-1.3) Estimated GFR (Cockcroft-Gault) 87.0 BUN/Creatinine Ratio 10 (6-20) Glucose Level 116 mg/dL (70-99) Calcium Level 8.2 mg/dL (8.5-10.1) Phosphorus Level 4.5 mg/dL (2.6-4.7) Magnesium Level 1.7 mg/dL (1.8-2.4) Total Bilirubin 0.3 mg/dL (0.2-1.0) Aspartate Amino Transf (AST/SGOT) 18 U/L (15-37) Alanine Aminotransferase (ALT/SGPT) 11 U/L (16-63) Alkaline Phosphatase 59 U/L (46-116) Total Protein 6.2 g/dL (6.4-8.2) Albumin 2.3 g/dL (3.4-5.0) Albumin/Globulin Ratio 0.6 (1.0-1.7) Microbiology 08/30/17 Anaerobic/Aerobic Culture, Resulted Pending 08/30/17 Anaerobic Culture Result 1 (VINAY), Resulted Pending 08/30/17 Aerobic Culture - Preliminary, Resulted 08/30/17 Aerobic Culture Result 1 (VINAY) - Preliminary, Resulted Medications Current Medications Sodium Chloride 1,000 ml @ 1,000 mls/hr 1X ONCE IV Last administered on 07:48; Start 08/28/17 at 07:45; Stop 08/28/17 at 08:44; Status DC Ondansetron HCl (Zofran) 4 mg 1X ONCE IV Last administered on 08/28/17 07:48 ; Start 08/28/17 at 07:45; Stop 08/28/17 at 07:46; Status DC Pantoprazole Sodium (Protonix Vial) 40 mg 1X ONCE IVP Last administered on 07:50; Start 08/28/17 at 07:45; Stop 08/28/17 at 07:46; Status DC Morphine Sulfate 2 mg PRN Q15MIN PRN IV/SQ PAIN GREATER THAN 3/10; Start at 07:45; Stop 08/29/17 at 07:44; Status DC Ondansetron HCl (Zofran) 4 mg PRN Q8HRS PRN IV NAUSEA/VOMITING; Start 08/28/17 at 10:00; Stop 08/29/17 at 09:59; Status DC Morphine Sulfate 2 mg PRN Q2HR PRN IV PAIN; Start 08/28/17 at 10:00; Stop 08/29 at 09:59; Status DC Sodium Chloride 1,000 ml @ 125 mls/hr Q8H IV Last administered on 08/29/17 02 :05; Start 08/28/17 at 09:49; Stop 08/29/17 at 09:48; Status DC Ciprofloxacin/ Dextrose 200 ml @ 200 mls/hr 1X ONCE IV Last administered on 08/28/17 10:24; Start 08/28/17 at 10:00; Stop 08/28/17 at 10:59; Status DC Metronidazole 100 ml @ 100 mls/hr Q8HRS IV Last administered on 08/31/17 05: 23; Start 08/28/17 at 11:00 Metronidazole 100 ml @ 100 mls/hr 1X ONCE IV ; Start 08/28/17 at 10:00; Stop 08/28/17 at 10:59; Status Cancel Ciprofloxacin/ Dextrose 200 ml @ 200 mls/hr Q12HR IV Last administered on 09:17; Start 08/28/17 at 21:00 Famotidine (Pepcid) 20 mg BID IVP Last administered on 08/31/17 09:09; Start 08/28/17 at 12:00 Polyethylene Glycol (miraLAX Powder BULK BOTTLE) 238 gm 1X ONCE PO Last administered on 08/28/17 17:26; Start 08/28/17 at 16:00; Stop 08/28/17 at 16:01 ; Status DC Bisacodyl (Dulcolax Tab) 10 mg 1X ONCE PO Last administered on 08/28/17 14:56 ; Start 08/28/17 at 15:00; Stop 08/28/17 at 15:01; Status DC Lactobacillus Rhamnosus (Culturelle) 1 cap BID PO Last administered on 21:03; Start 08/28/17 at 21:00 Fentanyl Citrate (Fentanyl 2ml Vial) 25 mcg PRN Q5MIN PRN IV MILD PAIN; Start 08/29/17 at 07:00; Stop 08/29/17 at 18:00; Status DC Fentanyl Citrate (Fentanyl 2ml Vial) 50 mcg PRN Q5MIN PRN IV MODERATE PAIN; Start 08/29/17 at 07:00; Stop 08/29/17 at 18:00; Status DC Morphine Sulfate 1 mg PRN Q10MIN PRN IV SEVERE PAIN; Start 08/29/17 at 07:00; Stop 08/29/17 at 18:00; Status DC Ringer's Solution 1,000 ml @ 30 mls/hr Q24H IV Last administered on 08/29/17 13:58; Start 08/29/17 at 07:00; Stop 08/29/17 at 18:59; Status DC Lidocaine HCl (Xylocaine-Mpf 1% Vial) 2 ml PRN 1X PRN ID IV START; Start at 07:00; Stop 08/29/17 at 18:00; Status DC Hydromorphone HCl (Dilaudid) 0.5 mg PRN Q10MIN PRN IV SEV PAIN, Second choice; Start 08/29/17 at 07:00; Stop 08/29/17 at 18:00; Status DC Prochlorperazine Edisylate (Compazine) 5 mg PACU PRN PRN IV NAUSEA, MRX1; Start 08/29/17 at 07:00; Stop 08/29/17 at 18:00; Status DC Nicotine (Nicoderm Cq 21mg) 1 patch PRN DAILY PRN TD SMOKING CESSATION; Start 08/28/17 at 16:00 Nicotine Polacrilex (Nicorette Gum) 1 each PRN Q1HR PRN BC SMOKING CESSATION Last administered on 08/29/17 08:37; Start 08/28/17 at 16:00 Midazolam HCl (Versed) 2 mg PRN 1X PRN IV PRIOR TO PROCEDURE; Start 08/29/17 at 10:45; Stop 08/30/17 at 10:44; Status DC Fentanyl Citrate (Fentanyl 2ml Vial) 25 mcg PRN Q5MIN PRN IV X 2 DOSES FOR PAIN ; Start 08/29/17 at 10:45; Stop 08/30/17 at 10:44; Status DC Fentanyl Citrate (Fentanyl 2ml Vial) 50 mcg PRN Q5MIN PRN IV X 2 DOSES FOR PAIN ; Start 08/29/17 at 10:45; Stop 08/30/17 at 10:44; Status DC Ringer's Solution 1,000 ml @ 125 mls/hr Q8H IV ; Start 08/29/17 at 10:32; Stop 08/29/17 at 20:00; Status DC Lidocaine HCl (Xylocaine-Mpf 1% Vial) 2 ml 1X PRN PRN ID IV START; Start at 10:45; Stop 08/30/17 at 10:44; Status DC Propofol 20 ml @ As Directed STK-MED ONCE IV ; Start 08/29/17 at 14:27; Stop at 14:28; Status DC Lidocaine HCl (Lidocaine Pf 2% Vial) 5 ml STK-MED ONCE .ROUTE ; Start 08/29/17 at 14:27; Stop 08/29/17 at 14:28; Status DC Propofol 20 ml @ As Directed STK-MED ONCE IV ; Start 08/29/17 at 14:28; Stop at 14:29; Status DC Propofol 20 ml @ As Directed STK-MED ONCE IV ; Start 08/30/17 at 10:26; Stop 08/30/17 at 10:27; Status DC Lidocaine HCl (Lidocaine Pf 2% Vial) 5 ml STK-MED ONCE .ROUTE ; Start 08/30/17 at 10:26; Stop 08/30/17 at 10:27; Status DC Dexamethasone Sodium Phosphate (Decadron) 20 mg STK-MED ONCE .ROUTE ; Start 08/06 at 10:26; Stop 08/30/17 at 10:27; Status DC Ondansetron HCl (Zofran) 4 mg STK-MED ONCE .ROUTE ; Start 08/30/17 at 10:26; Stop 08/30/17 at 10:27; Status DC Midazolam HCl (Versed) 2 mg STK-MED ONCE .ROUTE ; Start 08/30/17 at 10:27; Stop 08/30/17 at 10:28; Status DC Fentanyl Citrate (Fentanyl 5ml Vial) 250 mcg STK-MED ONCE .ROUTE ; Start at 10:27; Stop 08/30/17 at 10:28; Status DC Succinylcholine Chloride (Anectine) 200 mg STK-MED ONCE .ROUTE ; Start at 10:28; Stop 08/30/17 at 10:29; Status DC Rocuronium Gilbert (Zemuron) 50 mg STK-MED ONCE .ROUTE ; Start 08/30/17 at 10: 28; Stop 08/30/17 at 10:29; Status DC Cefoxitin Sodium 2 gm/Dextrose 100 ml @ 200 mls/hr 1X ONCE IV ; Start at 10:45; Stop 08/30/17 at 11:14; Status UNV Cefoxitin Sodium 100 ml @ 200 mls/hr ONCE ONCE IV Last administered on t 11:10; Start 08/30/17 at 11:00; Stop 08/30/17 at 11:29; Status DC Rocuronium Gilbert (Zemuron) 50 mg STK-MED ONCE .ROUTE ; Start 08/30/17 at 11: 20; Stop 08/30/17 at 11:21; Status DC Ephedrine Sulfate (Akovaz) 50 mg STK-MED ONCE .ROUTE ; Start 08/30/17 at 11:23 ; Stop 08/30/17 at 11:24; Status DC Ringer's Solution 1,000 ml @ 75 mls/hr [id number] IV Last administered on t 10:50; Start 08/30/17 at 11:45 Neostigmine Methylsulfate (Bloxiverz) 10 mg STK-MED ONCE .ROUTE ; Start at 12:54; Stop 08/30/17 at 12:55; Status DC Glycopyrrolate (Robinul) 1 mg STK-MED ONCE .ROUTE ; Start 08/30/17 at 12:54; Stop 08/30/17 at 12:55; Status DC Sevoflurane (Ultane) 90 ml STK-MED ONCE IH ; Start 08/30/17 at 13:00; Stop 08/06 at 13:01; Status DC Morphine Sulfate 10 mg STK-MED ONCE .ROUTE ; Start 08/30/17 at 13:35; Stop 08/06 at 13:36; Status DC Phenylephrine HCl (Kota-Synephrine Inj) 10 mg STK-MED ONCE .ROUTE ; Start at 14:18; Stop 08/30/17 at 14:19; Status DC Sodium Chloride (Sodium Chloride) 50 ml STK-MED ONCE IJ ; Start 08/30/17 at 14: 18; Stop 08/30/17 at 14:19; Status DC Morphine Sulfate 2 mg STK-MED ONCE .ROUTE ; Start 08/30/17 at 15:07; Stop 08/06 at 15:08; Status DC Fentanyl Citrate (Fentanyl 2ml Vial) 100 mcg STK-MED ONCE .ROUTE ; Start at 15:08; Stop 08/30/17 at 15:09; Status DC Ondansetron HCl (Zofran) 4 mg PRN Q6HRS PRN IV NAUSEA/VOMITING; Start at 15:15; Stop 08/31/17 at 15:14 Fentanyl Citrate (Fentanyl 2ml Vial) 25 mcg PRN Q5MIN PRN IV MILD PAIN Last administered on 08/30/17t 16:07; Start 08/30/17 at 15:15; Stop 08/31/17 at 15 :14 Fentanyl Citrate (Fentanyl 2ml Vial) 50 mcg PRN Q5MIN PRN IV MODERATE PAIN Last administered on 08/30/17t 16:20; Start 08/30/17 at 15:15; Stop 08/31/17 at 15:14 Morphine Sulfate 1 mg PRN Q10MIN PRN IV SEVERE PAIN Last administered on t 15:56; Start 08/30/17 at 15:15; Stop 08/31/17 at 15:14 Ringer's Solution 1,000 ml @ 0 mls/hr Q0M IV ; Start 08/30/17 at 15:11; Stop 08/31/17 at 03:10; Status DC Lidocaine HCl (Xylocaine-Mpf 1% Vial) 2 ml PRN 1X PRN ID PRIOR TO IV START; Start 08/30/17 at 15:15; Stop 08/31/17 at 15:14 Hydromorphone HCl (Dilaudid) 0.5 mg PRN Q10MIN PRN IV SEV PAIN, Second choice; Start 08/30/17 at 15:15; Stop 08/31/17 at 15:14 Prochlorperazine Edisylate (Compazine) 5 mg PACU PRN PRN IV NAUSEA, MRX1; Start 08/30/17 at 15:15; Stop 08/31/17 at 15:14 Ondansetron HCl (Zofran) 4 mg PRN Q6HRS PRN IV NAUSEA/VOMITING; Start at 15:30; Stop 08/31/17 at 15:29; Status UNV Fentanyl Citrate (Fentanyl 2ml Vial) 25 mcg PRN Q5MIN PRN IV MILD PAIN; Start 08/30/17 at 15:30; Stop 08/31/17 at 15:29; Status UNV Fentanyl Citrate (Fentanyl 2ml Vial) 50 mcg PRN Q5MIN PRN IV MODERATE PAIN; Start 08/30/17 at 15:30; Stop 08/31/17 at 15:29; Status UNV Morphine Sulfate 1 mg PRN Q10MIN PRN IV SEVERE PAIN; Start 08/30/17 at 15:30; Stop 08/31/17 at 15:29; Status UNV Ringer's Solution 1,000 ml @ 0 mls/hr Q0M IV ; Start 08/30/17 at 15:16; Stop 08/31/17 at 03:15; Status UNV Lidocaine HCl (Xylocaine-Mpf 1% Vial) 2 ml PRN 1X PRN ID PRIOR TO IV START; Start 08/30/17 at 15:30; Stop 08/31/17 at 15:29; Status UNV Hydromorphone HCl (Dilaudid) 0.5 mg PRN Q10MIN PRN IV SEV PAIN, Second choice; Start 08/30/17 at 15:30; Stop 08/31/17 at 15:29; Status UNV Prochlorperazine Edisylate (Compazine) 5 mg PACU PRN PRN IV NAUSEA, MRX1; Start 08/30/17 at 15:30; Stop 08/31/17 at 15:29; Status UNV Diphenhydramine HCl (Benadryl) 25 mg PRN Q6HRS PRN IV ITCHING; Start 08/30/17 at 15:30 Enoxaparin Sodium (Lovenox 40mg Syringe) 40 mg Q24H SQ Last administered on 09:13; Start 08/31/17 at 09:00 Sodium Chloride (Normal Saline Flush) 3 ml QSHIFT PRN IV AFTER MEDS AND BLOOD DRAWS; Start 08/30/17 at 15:30 Potassium Chloride/Sodium Chloride 1,000 ml @ 100 mls/hr Q10H IV Last administered on 08/31/17 04:10; Start 08/30/17 at 15:27; Stop 08/31/17 at 11 :04; Status DC Hydromorphone HCl 30 ml @ 0 mls/hr CONT PRN PRN IV PROTOCOL Last administered on 08/31/17 05:32; Start 08/30/17 at 15:30 Ondansetron HCl (Zofran) 4 mg PRN Q6HRS PRN IV NAUESA, 1ST CHOICE; Start 08/30 at 15:30 Throat Lozenges (Cepacol Sore Throat Lozenge) 1 michael PRN Q2HRS PRN PO SORE THROAT Last administered on 08/31/17 11:56; Start 08/30/17 at 15:30 Throat Lozenges (Chloraseptic) 1 spray PRN Q2HR PRN PO SORE THROAT; Start 08/06 at 15:30 Fentanyl Citrate (Fentanyl 2ml Vial) 100 mcg STK-MED ONCE .ROUTE ; Start at 16:03; Stop 08/30/17 at 16:04; Status DC Sodium Chloride 500 ml @ 100 mls/hr 1X ONCE IV Last administered on 11:53; Start 08/31/17 at 11:30; Stop 08/31/17 at 16:29 Magnesium Sulfate/ Dextrose 50 ml @ 25 mls/hr 1X ONCE IV ; Start 08/31/17 at 11:45; Stop 08/31/17 at 13:44 Vitals/I & O Vital Sign - Last 24 Hours 08/30/17 08/30/17 08/30/17 08/30/17 15:01 15:16 15:31 15:46 Temp 98.2 98.2 Pulse 85 97 85 Resp 16 16 16 16 B/P (MAP) 116/72 126/71 131/81 Pulse Ox 100 100 100 O2 Delivery Simple Mask Simple Mask Nasal Cannula Nasal Cannula O2 Flow Rate 10 10 3 2.0 08/30/17 08/30/17 08/30/17 08/30/17 15:46 15:56 16:01 16:20 Pulse 93 83 Resp 16 16 16 16 B/P (MAP) 135/76 130/73 Pulse Ox 100 100 O2 Delivery Nasal Cannula Nasal Cannula Room Air O2 Flow Rate 2 08/30/17 08/30/17 08/30/17 08/30/17 17:00 17:00 17:00 17:00 O2 Delivery Room Air Room Air Room Air Room Air O2 Flow Rate 2.0 2.0 2.0 2.0 08/30/17 08/30/17 08/30/17 08/31/17 19:15 20:00 23:59 03:59 Temp 97.6 97.9 97.6 97.9 Pulse 99 93 Resp 18 18 B/P (MAP) 111/72 (85) 102/56 (71) Pulse Ox 99 99 O2 Delivery Nasal Cannula Nasal Cannula Nasal Cannula Nasal Cannula O2 Flow Rate 2.0 2.0 2.0 08/31/17 08/31/17 08/31/17 08/31/17 04:59 05:32 07:00 08:00 Temp 97.7 97.8 97.7 97.8 Pulse 85 80 Resp 18 20 B/P (MAP) 107/59 (75) 116/67 (83) Pulse Ox 99 99 98 O2 Delivery Nasal Cannula Nasal Cannula Nasal Cannula O2 Flow Rate 2.0 2.0 2.0 08/31/17 11:00 Temp 97.2 97.2 Pulse 82 Resp 22 B/P (MAP) 124/76 (92) Pulse Ox 98 BRAYDON OVALLE MD Aug 31, 2017 12:19
[2017-08-31 15:00] VITALS: BP 97/60
[2017-08-31 19:00] VITALS: BP 104/58
[2017-08-31 22:53] VITALS: BP 103/65
[2017-09-01] MEDS: IV RINGERS,LACTATED 1000ML 1,000 ML IV SCH (02:36)
[2017-09-01 03:00] VITALS: BP 120/70
[2017-09-01 05:50] LABS: BASO % 0 % (0-3); EOS % 2 % (0-3); HEMATOCRIT 24.4 % (39.0-53.0); HEMOGLOBIN 7.4 g/dL (13.0-17.5); LYMPH # 0.9 x10^3/uL (1.0-4.8); LYMPH % 12 % (24-48); MEAN CORPUSCULAR HEMOGLOBIN 20 pg (25-35); MEAN CORPUSCULAR HGB CONC 30 g/dL (31-37); MEAN CORPUSCULAR VOLUME 66 fL (79-100); MONO % 5 % (0-9); NEUT % 82 % (31-73); PLATELET COUNT 280 x10^3/uL (140-400); RED CELL DISTRIBUTION WIDTH 18.1 % (11.5-14.5); WHITE BLOOD COUNT 7.4 x10^3/uL (4.0-11.0)
[2017-09-01 06:19] LABS: CREATININE 0.7 mg/dL (0.7-1.3); GFR 116.2; POTASSIUM 4.6 mmol/L (3.5-5.1)
[2017-09-01 07:00] VITALS: BP 122/72
[2017-09-01] MEDS ORDERED: MAGNESIUM SULFATE 2GM 50 ML IV ONE (08:45)
[2017-09-01 08:51] LABS: % SAT IRON 4 % (15-34); IRON,SERUM 10 ug/dL (65-175)
[2017-09-01] MEDS: FAMOTIDINE 20 MG/2 ML VIAL IVP SCH ×2 (08:58→21:40)
[2017-09-01] MEDS: CIPROFLOXACIN 400MG PREMIX 200 ML IV SCH ×2 (08:58→21:40)
[2017-09-01] MEDS: LACTOBACILLUS RHAMNOSUS GG 1 CAPSULE. PO SCH ×2 (09:00→21:00)
[2017-09-01] MEDS: ENOXAPARIN 40 MG/0.4 ML SYRINGE. SQ SCH (09:01)
[2017-09-01] MEDS: ONDANSETRON PF 4 MG/2 ML VIAL. IV PRN (10:21)
--- NOTE | 2017-09-01 10:25 | PDOC ---
SURGICAL PROGRESS NOTE Subjective up to chair some lower abdominal pain allen out, has not voided yet c/o sore throat 2/2 NG tube Vital Signs Vital Signs Date Time Temp Pulse Resp B/P (MAP) Pulse Ox O2 Delivery O2 Flow Rate FiO2 09/01/17 07:00 98.1 89 18 122/72 (89) 98 98.1 09/01/17 03:00 Room Air 08/31/17 20:00 2.0 PATIENT HAS A ALLEN: No General: Alert, Other (anxious) Abdomen: Soft, Other (incision c/d, small amount residual in NG when returned to suction) Labs Laboratory Tests Test 08/31/17 04:20 08/31/17 16:05 09/01/17 05:00 White Blood Count 9.7 x10^3/uL (4.0-11.0) 7.4 x10^3/uL (4.0-11.0) Red Blood Count 3.95 x10^6/uL (4.30-5.70) 3.70 x10^6/uL (4.30-5.70) Hemoglobin 7.8 g/dL (13.0-17.5) 7.4 g/dL (13.0-17.5) Hematocrit 25.7 % (39.0-53.0) 24.4 % (39.0-53.0) Mean Corpuscular Volume 65 fL (79-100) 66 fL (79-100) Mean Corpuscular Hemoglobin 20 pg (25-35) 20 pg (25-35) Mean Corpuscular Hemoglobin Concent 30 g/dL (31-37) 30 g/dL (31-37) Red Cell Distribution Width 18.1 % (11.5-14.5) 18.1 % (11.5-14.5) Platelet Count 296 x10^3/uL (140-400) 280 x10^3/uL (140-400) Neutrophils (%) (Auto) 86 % (31-73) 82 % (31-73) Lymphocytes (%) (Auto) 10 % (24-48) 12 % (24-48) Monocytes (%) (Auto) 4 % (0-9) 5 % (0-9) Eosinophils (%) (Auto) 0 % (0-3) 2 % (0-3) Basophils (%) (Auto) 0 % (0-3) 0 % (0-3) Neutrophils # (Auto) 8.3 x10^3uL (1.8-7.7) 6.1 x10^3uL (1.8-7.7) Lymphocytes # (Auto) 1.0 x10^3/uL (1.0-4.8) 0.9 x10^3/uL (1.0-4.8) Monocytes # (Auto) 0.4 x10^3/uL (0.0-1.1) 0.3 x10^3/uL (0.0-1.1) Eosinophils # (Auto) 0.0 x10^3/uL (0.0-0.7) 0.1 x10^3/uL (0.0-0.7) Basophils # (Auto) 0.0 x10^3/uL (0.0-0.2) 0.0 x10^3/uL (0.0-0.2) Sodium Level 137 mmol/L (136-145) 135 mmol/L (136-145) Potassium Level 5.2 mmol/L (3.5-5.1) 4.1 mmol/L (3.5-5.1) 4.6 mmol/L (3.5-5.1) Chloride Level 104 mmol/L (98-107) 100 mmol/L (98-107) Carbon Dioxide Level 28 mmol/L (21-32) 30 mmol/L (21-32) Anion Gap 5 (6-14) 5 (6-14) Blood Urea Nitrogen 9 mg/dL (8-26) 6 mg/dL (8-26) Creatinine 0.9 mg/dL (0.7-1.3) 0.7 mg/dL (0.7-1.3) Estimated GFR (Cockcroft-Gault) 87.0 116.2 BUN/Creatinine Ratio 10 (6-20) Glucose Level 116 mg/dL (70-99) 76 mg/dL (70-99) Calcium Level 8.2 mg/dL (8.5-10.1) 8.0 mg/dL (8.5-10.1) Phosphorus Level 4.5 mg/dL (2.6-4.7) Magnesium Level 1.7 mg/dL (1.8-2.4) 1.6 mg/dL (1.8-2.4) Total Bilirubin 0.3 mg/dL (0.2-1.0) Aspartate Amino Transf (AST/SGOT) 18 U/L (15-37) Alanine Aminotransferase (ALT/SGPT) 11 U/L (16-63) Alkaline Phosphatase 59 U/L (46-116) Total Protein 6.2 g/dL (6.4-8.2) Albumin 2.3 g/dL (3.4-5.0) Albumin/Globulin Ratio 0.6 (1.0-1.7) Reticulocyte Count (auto) 1.0 % (0.5-2.5) Iron Level 10 ug/dL (65-175) Total Iron Binding Capacity 280 ug/dL (250-450) Iron Saturation 4 % (15-34) Ferritin 25 ng/mL (26-388) Laboratory Tests Test 08/31/17 16:05 09/01/17 05:00 Potassium Level 4.1 mmol/L (3.5-5.1) 4.6 mmol/L (3.5-5.1) White Blood Count 7.4 x10^3/uL (4.0-11.0) Red Blood Count 3.70 x10^6/uL (4.30-5.70) Hemoglobin 7.4 g/dL (13.0-17.5) Hematocrit 24.4 % (39.0-53.0) Mean Corpuscular Volume 66 fL (79-100) Mean Corpuscular Hemoglobin 20 pg (25-35) Mean Corpuscular Hemoglobin Concent 30 g/dL (31-37) Red Cell Distribution Width 18.1 % (11.5-14.5) Platelet Count 280 x10^3/uL (140-400) Neutrophils (%) (Auto) 82 % (31-73) Lymphocytes (%) (Auto) 12 % (24-48) Monocytes (%) (Auto) 5 % (0-9) Eosinophils (%) (Auto) 2 % (0-3) Basophils (%) (Auto) 0 % (0-3) Neutrophils # (Auto) 6.1 x10^3uL (1.8-7.7) Lymphocytes # (Auto) 0.9 x10^3/uL (1.0-4.8) Monocytes # (Auto) 0.3 x10^3/uL (0.0-1.1) Eosinophils # (Auto) 0.1 x10^3/uL (0.0-0.7) Basophils # (Auto) 0.0 x10^3/uL (0.0-0.2) Reticulocyte Count (auto) 1.0 % (0.5-2.5) Sodium Level 135 mmol/L (136-145) Chloride Level 100 mmol/L (98-107) Carbon Dioxide Level 30 mmol/L (21-32) Anion Gap 5 (6-14) Blood Urea Nitrogen 6 mg/dL (8-26) Creatinine 0.7 mg/dL (0.7-1.3) Estimated GFR (Cockcroft-Gault) 116.2 Glucose Level 76 mg/dL (70-99) Calcium Level 8.0 mg/dL (8.5-10.1) Magnesium Level 1.6 mg/dL (1.8-2.4) Iron Level 10 ug/dL (65-175) Total Iron Binding Capacity 280 ug/dL (250-450) Iron Saturation 4 % (15-34) Ferritin 25 ng/mL (26-388) Problem List Problems Medical Problems: (1) Diverticulitis Status: Acute Assessment/Plan POD 2 sigmoid/SB resection NG out ambulate Problems: BENJI SUH MD Sep 01, 2017 10:25
[2017-09-01 11:17] VITALS: BP 110/68
--- NOTE | 2017-09-01 11:42 | PDOC ---
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 weak etc not feeling good Recheck tmr MAg 2 gms IV now Dw RN and aide and pt Vitals Vitals Vital Signs Date Time Temp Pulse Resp B/P (MAP) Pulse Ox O2 Delivery O2 Flow Rate FiO2 09/01/17 11: 98.3 78 18 110/68 (82) 98 Nasal Cannula 2.0 98.3 Physical Exam General: Alert, Other (anxious) Heart: Regular rate, Normal S1, Normal S2, No murmurs Lungs: Clear Abdomen: Soft, Other (incision c/d, small amount residual in NG when returned to suction) Extremities: No clubbing, No cyanosis Skin: No rashes, No breakdown Labs LABS Laboratory Tests Test 08/31/17 16:05 09/01/17 05:00 Potassium Level 4.1 mmol/L (3.5-5.1) 4.6 mmol/L (3.5-5.1) White Blood Count 7.4 x10^3/uL (4.0-11.0) Red Blood Count 3.70 x10^6/uL (4.30-5.70) Hemoglobin 7.4 g/dL (13.0-17.5) Hematocrit 24.4 % (39.0-53.0) Mean Corpuscular Volume 66 fL (79-100) Mean Corpuscular Hemoglobin 20 pg (25-35) Mean Corpuscular Hemoglobin Concent 30 g/dL (31-37) Red Cell Distribution Width 18.1 % (11.5-14.5) Platelet Count 280 x10^3/uL (140-400) Neutrophils (%) (Auto) 82 % (31-73) Lymphocytes (%) (Auto) 12 % (24-48) Monocytes (%) (Auto) 5 % (0-9) Eosinophils (%) (Auto) 2 % (0-3) Basophils (%) (Auto) 0 % (0-3) Neutrophils # (Auto) 6.1 x10^3uL (1.8-7.7) Lymphocytes # (Auto) 0.9 x10^3/uL (1.0-4.8) Monocytes # (Auto) 0.3 x10^3/uL (0.0-1.1) Eosinophils # (Auto) 0.1 x10^3/uL (0.0-0.7) Basophils # (Auto) 0.0 x10^3/uL (0.0-0.2) Reticulocyte Count (auto) 1.0 % (0.5-2.5) Sodium Level 135 mmol/L (136-145) Chloride Level 100 mmol/L (98-107) Carbon Dioxide Level 30 mmol/L (21-32) Anion Gap 5 (6-14) Blood Urea Nitrogen 6 mg/dL (8-26) Creatinine 0.7 mg/dL (0.7-1.3) Estimated GFR (Cockcroft-Gault) 116.2 Glucose Level 76 mg/dL (70-99) Calcium Level 8.0 mg/dL (8.5-10.1) Magnesium Level 1.6 mg/dL (1.8-2.4) Iron Level 10 ug/dL (65-175) Total Iron Binding Capacity 280 ug/dL (250-450) Iron Saturation 4 % (15-34) Ferritin 25 ng/mL (26-388) Review of Systems Review of Systems abd post op pain,weak, no flatus, no CP, SOA Assessment and Plan Assessmemt and Plan Problems Medical Problems: (1) Diverticulitis Status: Acute Problems: Comment Review of Relevant I have reviewed the following items deloris (where applicable) has been applied. Labs Laboratory Tests Test 08/31/17 04:20 08/31/17 16:05 09/01/17 05:00 White Blood Count 9.7 x10^3/uL (4.0-11.0) 7.4 x10^3/uL (4.0-11.0) Red Blood Count 3.95 x10^6/uL (4.30-5.70) 3.70 x10^6/uL (4.30-5.70) Hemoglobin 7.8 g/dL (13.0-17.5) 7.4 g/dL (13.0-17.5) Hematocrit 25.7 % (39.0-53.0) 24.4 % (39.0-53.0) Mean Corpuscular Volume 65 fL (79-100) 66 fL (79-100) Mean Corpuscular Hemoglobin 20 pg (25-35) 20 pg (25-35) Mean Corpuscular Hemoglobin Concent 30 g/dL (31-37) 30 g/dL (31-37) Red Cell Distribution Width 18.1 % (11.5-14.5) 18.1 % (11.5-14.5) Platelet Count 296 x10^3/uL (140-400) 280 x10^3/uL (140-400) Neutrophils (%) (Auto) 86 % (31-73) 82 % (31-73) Lymphocytes (%) (Auto) 10 % (24-48) 12 % (24-48) Monocytes (%) (Auto) 4 % (0-9) 5 % (0-9) Eosinophils (%) (Auto) 0 % (0-3) 2 % (0-3) Basophils (%) (Auto) 0 % (0-3) 0 % (0-3) Neutrophils # (Auto) 8.3 x10^3uL (1.8-7.7) 6.1 x10^3uL (1.8-7.7) Lymphocytes # (Auto) 1.0 x10^3/uL (1.0-4.8) 0.9 x10^3/uL (1.0-4.8) Monocytes # (Auto) 0.4 x10^3/uL (0.0-1.1) 0.3 x10^3/uL (0.0-1.1) Eosinophils # (Auto) 0.0 x10^3/uL (0.0-0.7) 0.1 x10^3/uL (0.0-0.7) Basophils # (Auto) 0.0 x10^3/uL (0.0-0.2) 0.0 x10^3/uL (0.0-0.2) Sodium Level 137 mmol/L (136-145) 135 mmol/L (136-145) Potassium Level 5.2 mmol/L (3.5-5.1) 4.1 mmol/L (3.5-5.1) 4.6 mmol/L (3.5-5.1) Chloride Level 104 mmol/L (98-107) 100 mmol/L (98-107) Carbon Dioxide Level 28 mmol/L (21-32) 30 mmol/L (21-32) Anion Gap 5 (6-14) 5 (6-14) Blood Urea Nitrogen 9 mg/dL (8-26) 6 mg/dL (8-26) Creatinine 0.9 mg/dL (0.7-1.3) 0.7 mg/dL (0.7-1.3) Estimated GFR (Cockcroft-Gault) 87.0 116.2 BUN/Creatinine Ratio 10 (6-20) Glucose Level 116 mg/dL (70-99) 76 mg/dL (70-99) Calcium Level 8.2 mg/dL (8.5-10.1) 8.0 mg/dL (8.5-10.1) Phosphorus Level 4.5 mg/dL (2.6-4.7) Magnesium Level 1.7 mg/dL (1.8-2.4) 1.6 mg/dL (1.8-2.4) Total Bilirubin 0.3 mg/dL (0.2-1.0) Aspartate Amino Transf (AST/SGOT) 18 U/L (15-37) Alanine Aminotransferase (ALT/SGPT) 11 U/L (16-63) Alkaline Phosphatase 59 U/L (46-116) Total Protein 6.2 g/dL (6.4-8.2) Albumin 2.3 g/dL (3.4-5.0) Albumin/Globulin Ratio 0.6 (1.0-1.7) Reticulocyte Count (auto) 1.0 % (0.5-2.5) Iron Level 10 ug/dL (65-175) Total Iron Binding Capacity 280 ug/dL (250-450) Iron Saturation 4 % (15-34) Ferritin 25 ng/mL (26-388) Laboratory Tests Test 08/31/17 16:05 09/01/17 05:00 Potassium Level 4.1 mmol/L (3.5-5.1) 4.6 mmol/L (3.5-5.1) White Blood Count 7.4 x10^3/uL (4.0-11.0) Red Blood Count 3.70 x10^6/uL (4.30-5.70) Hemoglobin 7.4 g/dL (13.0-17.5) Hematocrit 24.4 % (39.0-53.0) Mean Corpuscular Volume 66 fL (79-100) Mean Corpuscular Hemoglobin 20 pg (25-35) Mean Corpuscular Hemoglobin Concent 30 g/dL (31-37) Red Cell Distribution Width 18.1 % (11.5-14.5) Platelet Count 280 x10^3/uL (140-400) Neutrophils (%) (Auto) 82 % (31-73) Lymphocytes (%) (Auto) 12 % (24-48) Monocytes (%) (Auto) 5 % (0-9) Eosinophils (%) (Auto) 2 % (0-3) Basophils (%) (Auto) 0 % (0-3) Neutrophils # (Auto) 6.1 x10^3uL (1.8-7.7) Lymphocytes # (Auto) 0.9 x10^3/uL (1.0-4.8) Monocytes # (Auto) 0.3 x10^3/uL (0.0-1.1) Eosinophils # (Auto) 0.1 x10^3/uL (0.0-0.7) Basophils # (Auto) 0.0 x10^3/uL (0.0-0.2) Reticulocyte Count (auto) 1.0 % (0.5-2.5) Sodium Level 135 mmol/L (136-145) Chloride Level 100 mmol/L (98-107) Carbon Dioxide Level 30 mmol/L (21-32) Anion Gap 5 (6-14) Blood Urea Nitrogen 6 mg/dL (8-26) Creatinine 0.7 mg/dL (0.7-1.3) Estimated GFR (Cockcroft-Gault) 116.2 Glucose Level 76 mg/dL (70-99) Calcium Level 8.0 mg/dL (8.5-10.1) Magnesium Level 1.6 mg/dL (1.8-2.4) Iron Level 10 ug/dL (65-175) Total Iron Binding Capacity 280 ug/dL (250-450) Iron Saturation 4 % (15-34) Ferritin 25 ng/mL (26-388) Microbiology 08/30/17 Anaerobic/Aerobic Culture, Resulted Pending 08/30/17 Anaerobic Culture Result 1 (VINAY), Resulted Pending 08/30/17 Aerobic Culture - Preliminary, Resulted 08/30/17 Aerobic Culture Result 1 (VINAY) - Preliminary, Resulted Medications Current Medications Sodium Chloride 1,000 ml @ 1,000 mls/hr 1X ONCE IV Last administered on 07:48; Start 08/28/17 at 07:45; Stop 08/28/17 at 08:44; Status DC Ondansetron HCl (Zofran) 4 mg 1X ONCE IV Last administered on 08/28/17 07:48 ; Start 08/28/17 at 07:45; Stop 08/28/17 at 07:46; Status DC Pantoprazole Sodium (Protonix Vial) 40 mg 1X ONCE IVP Last administered on 07:50; Start 08/28/17 at 07:45; Stop 08/28/17 at 07:46; Status DC Morphine Sulfate 2 mg PRN Q15MIN PRN IV/SQ PAIN GREATER THAN 3/10; Start at 07:45; Stop 08/29/17 at 07:44; Status DC Ondansetron HCl (Zofran) 4 mg PRN Q8HRS PRN IV NAUSEA/VOMITING; Start 08/28/17 at 10:00; Stop 08/29/17 at 09:59; Status DC Morphine Sulfate 2 mg PRN Q2HR PRN IV PAIN; Start 08/28/17 at 10:00; Stop 08/29 at 09:59; Status DC Sodium Chloride 1,000 ml @ 125 mls/hr Q8H IV Last administered on 08/29/17 02 :05; Start 08/28/17 at 09:49; Stop 08/29/17 at 09:48; Status DC Ciprofloxacin/ Dextrose 200 ml @ 200 mls/hr 1X ONCE IV Last administered on 08/28/17 10:24; Start 08/28/17 at 10:00; Stop 08/28/17 at 10:59; Status DC Metronidazole 100 ml @ 100 mls/hr Q8HRS IV Last administered on 09/01/17 05: 57; Start 08/28/17 at 11:00 Metronidazole 100 ml @ 100 mls/hr 1X ONCE IV ; Start 08/28/17 at 10:00; Stop 08/28/17 at 10:59; Status Cancel Ciprofloxacin/ Dextrose 200 ml @ 200 mls/hr Q12HR IV Last administered on 08:58; Start 08/28/17 at 21:00 Famotidine (Pepcid) 20 mg BID IVP Last administered on 09/01/17 08:58; Start 08/28/17 at 12:00 Polyethylene Glycol (miraLAX Powder BULK BOTTLE) 238 gm 1X ONCE PO Last administered on 08/28/17 17:26; Start 08/28/17 at 16:00; Stop 08/28/17 at 16:01 ; Status DC Bisacodyl (Dulcolax Tab) 10 mg 1X ONCE PO Last administered on 08/28/17 14:56 ; Start 08/28/17 at 15:00; Stop 08/28/17 at 15:01; Status DC Lactobacillus Rhamnosus (Culturelle) 1 cap BID PO Last administered on 21:03; Start 08/28/17 at 21:00 Fentanyl Citrate (Fentanyl 2ml Vial) 25 mcg PRN Q5MIN PRN IV MILD PAIN; Start 08/29/17 at 07:00; Stop 08/29/17 at 18:00; Status DC Fentanyl Citrate (Fentanyl 2ml Vial) 50 mcg PRN Q5MIN PRN IV MODERATE PAIN; Start 08/29/17 at 07:00; Stop 08/29/17 at 18:00; Status DC Morphine Sulfate 1 mg PRN Q10MIN PRN IV SEVERE PAIN; Start 08/29/17 at 07:00; Stop 08/29/17 at 18:00; Status DC Ringer's Solution 1,000 ml @ 30 mls/hr Q24H IV Last administered on 08/29/17 13:58; Start 08/29/17 at 07:00; Stop 08/29/17 at 18:59; Status DC Lidocaine HCl (Xylocaine-Mpf 1% Vial) 2 ml PRN 1X PRN ID IV START; Start at 07:00; Stop 08/29/17 at 18:00; Status DC Hydromorphone HCl (Dilaudid) 0.5 mg PRN Q10MIN PRN IV SEV PAIN, Second choice; Start 08/29/17 at 07:00; Stop 08/29/17 at 18:00; Status DC Prochlorperazine Edisylate (Compazine) 5 mg PACU PRN PRN IV NAUSEA, MRX1; Start 08/29/17 at 07:00; Stop 08/29/17 at 18:00; Status DC Nicotine (Nicoderm Cq 21mg) 1 patch PRN DAILY PRN TD SMOKING CESSATION; Start 08/28/17 at 16:00 Nicotine Polacrilex (Nicorette Gum) 1 each PRN Q1HR PRN BC SMOKING CESSATION Last administered on 08/29/17t 08:37; Start 08/28/17 at 16:00 Midazolam HCl (Versed) 2 mg PRN 1X PRN IV PRIOR TO PROCEDURE; Start 08/29/17 at 10:45; Stop 08/30/17 at 10:44; Status DC Fentanyl Citrate (Fentanyl 2ml Vial) 25 mcg PRN Q5MIN PRN IV X 2 DOSES FOR PAIN ; Start 08/29/17 at 10:45; Stop 08/30/17 at 10:44; Status DC Fentanyl Citrate (Fentanyl 2ml Vial) 50 mcg PRN Q5MIN PRN IV X 2 DOSES FOR PAIN ; Start 08/29/17 at 10:45; Stop 08/30/17 at 10:44; Status DC Ringer's Solution 1,000 ml @ 125 mls/hr Q8H IV ; Start 08/29/17 at 10:32; Stop 08/29/17 at 20:00; Status DC Lidocaine HCl (Xylocaine-Mpf 1% Vial) 2 ml 1X PRN PRN ID IV START; Start at 10:45; Stop 08/30/17 at 10:44; Status DC Propofol 20 ml @ As Directed STK-MED ONCE IV ; Start 08/29/17 at 14:27; Stop at 14:28; Status DC Lidocaine HCl (Lidocaine Pf 2% Vial) 5 ml STK-MED ONCE .ROUTE ; Start 08/29/17 at 14:27; Stop 08/29/17 at 14:28; Status DC Propofol 20 ml @ As Directed STK-MED ONCE IV ; Start 08/29/17 at 14:28; Stop at 14:29; Status DC Propofol 20 ml @ As Directed STK-MED ONCE IV ; Start 08/30/17 at 10:26; Stop 08/30/17 at 10:27; Status DC Lidocaine HCl (Lidocaine Pf 2% Vial) 5 ml STK-MED ONCE .ROUTE ; Start 08/30/17 at 10:26; Stop 08/30/17 at 10:27; Status DC Dexamethasone Sodium Phosphate (Decadron) 20 mg STK-MED ONCE .ROUTE ; Start 08/06 at 10:26; Stop 08/30/17 at 10:27; Status DC Ondansetron HCl (Zofran) 4 mg STK-MED ONCE .ROUTE ; Start 08/30/17 at 10:26; Stop 08/30/17 at 10:27; Status DC Midazolam HCl (Versed) 2 mg STK-MED ONCE .ROUTE ; Start 08/30/17 at 10:27; Stop 08/30/17 at 10:28; Status DC Fentanyl Citrate (Fentanyl 5ml Vial) 250 mcg STK-MED ONCE .ROUTE ; Start at 10:27; Stop 08/30/17 at 10:28; Status DC Succinylcholine Chloride (Anectine) 200 mg STK-MED ONCE .ROUTE ; Start at 10:28; Stop 08/30/17 at 10:29; Status DC Rocuronium [place]worth (Zemuron) 50 mg STK-MED ONCE .ROUTE ; Start 08/30/17 at 10: 28; Stop 08/30/17 at 10:29; Status DC Cefoxitin Sodium 2 gm/Dextrose 100 ml @ 200 mls/hr 1X ONCE IV ; Start at 10:45; Stop 08/30/17 at 11:14; Status UNV Cefoxitin Sodium 100 ml @ 200 mls/hr ONCE ONCE IV Last administered on t 11:10; Start 08/30/17 at 11:00; Stop 08/30/17 at 11:29; Status DC Rocuronium [place] (Zemuron) 50 mg STK-MED ONCE .ROUTE ; Start 08/30/17 at 11: 20; Stop 08/30/17 at 11:21; Status DC Ephedrine Sulfate (Akovaz) 50 mg STK-MED ONCE .ROUTE ; Start 08/30/17 at 11:23 ; Stop 08/30/17 at 11:24; Status DC Ringer's Solution 1,000 ml @ 30 mls/hr Q24H IV Last administered on t 02:36; Start 08/30/17 at 11:45 Neostigmine Methylsulfate (Bloxiverz) 10 mg STK-MED ONCE .ROUTE ; Start at 12:54; Stop 08/30/17 at 12:55; Status DC Glycopyrrolate (Robinul) 1 mg STK-MED ONCE .ROUTE ; Start 08/30/17 at 12:54; Stop 08/30/17 at 12:55; Status DC Sevoflurane (Ultane) 90 ml STK-MED ONCE IH ; Start 08/30/17 at 13:00; Stop 08/06 at 13:01; Status DC Morphine Sulfate 10 mg STK-MED ONCE .ROUTE ; Start 08/30/17 at 13:35; Stop 08/06 at 13:36; Status DC Phenylephrine HCl (Kota-Synephrine Inj) 10 mg STK-MED ONCE .ROUTE ; Start at 14:18; Stop 08/30/17 at 14:19; Status DC Sodium Chloride (Sodium Chloride) 50 ml STK-MED ONCE IJ ; Start 08/30/17 at 14: 18; Stop 08/30/17 at 14:19; Status DC Morphine Sulfate 2 mg STK-MED ONCE .ROUTE ; Start 08/30/17 at 15:07; Stop 08/06 at 15:08; Status DC Fentanyl Citrate (Fentanyl 2ml Vial) 100 mcg STK-MED ONCE .ROUTE ; Start at 15:08; Stop 08/30/17 at 15:09; Status DC Ondansetron HCl (Zofran) 4 mg PRN Q6HRS PRN IV NAUSEA/VOMITING; Start at 15:15; Stop 08/31/17 at 15:14; Status DC Fentanyl Citrate (Fentanyl 2ml Vial) 25 mcg PRN Q5MIN PRN IV MILD PAIN Last administered on 08/30/17 16:07; Start 08/30/17 at 15:15; Stop 08/31/17 at 15 :14; Status DC Fentanyl Citrate (Fentanyl 2ml Vial) 50 mcg PRN Q5MIN PRN IV MODERATE PAIN Last administered on 08/30/17 16:20; Start 08/30/17 at 15:15; Stop 08/31/17 at 15:14; Status DC Morphine Sulfate 1 mg PRN Q10MIN PRN IV SEVERE PAIN Last administered on 15:56; Start 08/30/17 at 15:15; Stop 08/31/17 at 15:14; Status DC Ringer's Solution 1,000 ml @ 0 mls/hr Q0M IV ; Start 08/30/17 at 15:11; Stop 08/31/17 at 03:10; Status DC Lidocaine HCl (Xylocaine-Mpf 1% Vial) 2 ml PRN 1X PRN ID PRIOR TO IV START; Start 08/30/17 at 15:15; Stop 08/31/17 at 15:14; Status DC Hydromorphone HCl (Dilaudid) 0.5 mg PRN Q10MIN PRN IV SEV PAIN, Second choice; Start 08/30/17 at 15:15; Stop 08/31/17 at 15:14; Status DC Prochlorperazine Edisylate (Compazine) 5 mg PACU PRN PRN IV NAUSEA, MRX1; Start 08/30/17 at 15:15; Stop 08/31/17 at 15:14; Status DC Ondansetron HCl (Zofran) 4 mg PRN Q6HRS PRN IV NAUSEA/VOMITING; Start at 15:30; Stop 08/31/17 at 15:29; Status UNV Fentanyl Citrate (Fentanyl 2ml Vial) 25 mcg PRN Q5MIN PRN IV MILD PAIN; Start 08/30/17 at 15:30; Stop 08/31/17 at 15:29; Status UNV Fentanyl Citrate (Fentanyl 2ml Vial) 50 mcg PRN Q5MIN PRN IV MODERATE PAIN; Start 08/30/17 at 15:30; Stop 08/31/17 at 15:29; Status UNV Morphine Sulfate 1 mg PRN Q10MIN PRN IV SEVERE PAIN; Start 08/30/17 at 15:30; Stop 08/31/17 at 15:29; Status UNV Ringer's Solution 1,000 ml @ 0 mls/hr Q0M IV ; Start 08/30/17 at 15:16; Stop 08/31/17 at 03:15; Status UNV Lidocaine HCl (Xylocaine-Mpf 1% Vial) 2 ml PRN 1X PRN ID PRIOR TO IV START; Start 08/30/17 at 15:30; Stop 08/31/17 at 15:29; Status UNV Hydromorphone HCl (Dilaudid) 0.5 mg PRN Q10MIN PRN IV SEV PAIN, Second choice; Start 08/30/17 at 15:30; Stop 08/31/17 at 15:29; Status UNV Prochlorperazine Edisylate (Compazine) 5 mg PACU PRN PRN IV NAUSEA, MRX1; Start 08/30/17 at 15:30; Stop 08/31/17 at 15:29; Status UNV Diphenhydramine HCl (Benadryl) 25 mg PRN Q6HRS PRN IV ITCHING; Start 08/30/17 at 15:30 Enoxaparin Sodium (Lovenox 40mg Syringe) 40 mg Q24H SQ Last administered on 09:01; Start 08/31/17 at 09:00 Sodium Chloride (Normal Saline Flush) 3 ml QSHIFT PRN IV AFTER MEDS AND BLOOD DRAWS; Start 08/30/17 at 15:30 Potassium Chloride/Sodium Chloride 1,000 ml @ 100 mls/hr Q10H IV Last administered on 08/31/17 04:10; Start 08/30/17 at 15:27; Stop 08/31/17 at 11 :04; Status DC Hydromorphone HCl 30 ml @ 0 mls/hr CONT PRN PRN IV PROTOCOL Last administered on 08/31/17 05:32; Start 08/30/17 at 15:30 Ondansetron HCl (Zofran) 4 mg PRN Q6HRS PRN IV NAUESA, 1ST CHOICE Last administered on 09/01/17 10:21; Start 08/30/17 at 15:30 Throat Lozenges (Cepacol Sore Throat Lozenge) 1 michael PRN Q2HRS PRN PO SORE THROAT Last administered on 08/31/17 11:56; Start 08/30/17 at 15:30 Throat Lozenges (Chloraseptic) 1 spray PRN Q2HR PRN PO SORE THROAT; Start 08/06 at 15:30 Fentanyl Citrate (Fentanyl 2ml Vial) 100 mcg STK-MED ONCE .ROUTE ; Start at 16:03; Stop 08/30/17 at 16:04; Status DC Sodium Chloride 500 ml @ 100 mls/hr 1X ONCE IV Last administered on 11:53; Start 08/31/17 at 11:30; Stop 08/31/17 at 16:29; Status DC Magnesium Sulfate/ Dextrose 50 ml @ 25 mls/hr 1X ONCE IV Last administered on 08/31/17 12:18; Start 08/31/17 at 11:45; Stop 08/31/17 at 13:44; Status DC Magnesium Sulfate/ Dextrose 50 ml @ 25 mls/hr 1X ONCE IV Last administered on 09/01/17 10:22; Start 09/01/17 at 08:45; Stop 09/01/17 at 10:44; Status DC Amino Acids/ Glycerin/ Electrolytes 1,000 ml @ 80 mls/hr [id number] IV ; Start at 10:30 Vitals/I & O Vital Sign - Last 24 Hours 08/31/17 08/31/17 08/31/17 08/31/17 13:44 15:00 19:00 20:00 Temp 98.2 97.9 98.2 97.9 Pulse 72 89 Resp 22 18 B/P (MAP) 97/60 (72) 104/58 (73) Pulse Ox 99 99 O2 Delivery Nasal Cannula Room Air Room Air Nasal Cannula O2 Flow Rate 2.0 2.0 08/31/17 09/01/17 09/01/17 09/01/17 22:53 03:00 07:00 11: Temp 97.9 98.6 98.1 98.3 97.9 98.6 98.1 98.3 Pulse 79 94 89 78 Resp 18 18 18 18 B/P (MAP) 103/65 (78) 120/70 (87) 122/72 (89) 110/68 (82) Pulse Ox 99 100 98 98 O2 Delivery Room Air Room Air Nasal Cannula O2 Flow Rate 2.0 BRAYDON OVALLE MD Sep 01, 2017 11:42
[2017-09-01] MEDS: AMINO AC 3%/ELECTROLYTE/GLYCER 1,000 ML IV SCH (14:57)
[2017-09-01 15:00] VITALS: BP 114/71
--- NOTE | 2017-09-01 17:54 | OP ---
DATE OF SURGERY: 08/30/2017 PREOPERATIVE DIAGNOSIS: Sigmoid mass. POSTOPERATIVE DIAGNOSES: Sigmoid mass, sigmoid cancer. PROCEDURE: 1. Rigid proctoscopy. 2. Sigmoid resection with primary anastomosis. 3. Small bowel resection with primary anastomosis. 4. Mobilization of the splenic flexure. SURGEON: Duong Suh MD. PRODUCTION RECOVERY OPERATOR: Jack Bustamante MD and Andressa Sanchez CFA. ANESTHESIA: General endotracheal. ESTIMATED BLOOD LOSS: 550. INTRAVENOUS FLUIDS: 2400. URINE OUTPUT: 400. INDICATIONS: The patient is a 56-year-old with recent rectal bleeding. He has a family history of colon cancer. CT scan on presentation suggested a mass or inflammatory process in the sigmoid colon and he is brought for exploration. OPERATIVE FINDINGS: The liver was smooth and sharp. The gallbladder was surgically absent, NG tube in the stomach. Small bowel was run from ligament of Treitz to ileocecal valve. In the distal ileum, a loop of bowel was involved with the left lower quadrant mass. Appendix was fibrotic. The proximal transverse and descending colon were unremarkable. DESCRIPTION OF PROCEDURE: The patient was brought to the operating suite, given a general endotracheal anesthetic. Carter catheter placed to dependent drainage and the patient was placed in lithotomy. Rigid proctoscopy was carried out to approximately 18 cm from the anal verge without obvious abnormality. The patient's abdomen and perineum were then prepped and draped in usual sterile fashion. Midline incision starting from the umbilicus to the pubis was made through the skin and subcutaneous tissue down to the anterior sheath. Bleeders were cauterized as identified. The sheath was opened in the midline. Peritoneum elevated, opened sharply, extended with cautery avoiding injury to abdominal contents. A small amount of fluid was present in the pelvis. This was cultured and then evacuated. The abdomen was explored with results as noted above. With the Omni self-retaining retractor for exposure, we set about mobilizing the distal descending colon toward the midline by taking down the white line of Toldt. The mass was firmly adherent to the lateral pelvic wall and involved the left spermatic cords at its exit from the abdominal cavity. The colon proximal to the mass was skeletonized and divided with a RICHARD stapler. The loop of small bowel involved in the mass was similarly skeletonized proximal and distal to its attachment to the tumor and was divided with the RICHARD stapler. We then freed the bowel distal to the tumor and it was divided with a contour stapler. We then carefully freed the mass, mesocolon and small bowel mesentery from the pelvic wall by serially clamping, dividing and ligating with Vicryl ties. Care was taken to identify and avoid the left ureter. The mass was eventually removed and passed off. In anticipation of primary anastomosis of the colon, we extended our incision superiorly around the umbilicus to allow exposure of the left upper quadrant. This allowed us to take down the splenic flexure by continuing to divide the white line of Toldt to provide adequate length of the descending colon to create a tension-free anastomosis in the pelvis. The small bowel was anastomosed first. A posterior row of interrupted 3-0 Vicryl sutures were placed, atraumatic clamps proximally and distally, staple lines excised. Mucosal anastomosis created with a running locked 3-0 chromic first posteriorly, then anteriorly. Clamps removed. Anastomosis completed with an anterior row of interrupted 3-0 Vicryl suture. There was competency and patency of the anastomosis at completion. The small mesenteric rent was approximated with 2-0 chromic taking care to avoid injury or compromise of blood supply to the anastomosis. We then turned our attention to the colonic anastomosis. A posterior row of interrupted 3-0 Vicryl sutures were placed. Bowel occluded proximally with atraumatic clamp. Staple line is excised. Mucosal anastomosis created with a running locked 3-0 chromic first posteriorly, then anteriorly. Clamp removed. Anastomosis completed with an anterior row of 3-0 Vicryl sutures. The rigid scope was placed in the anal canal and the colon was occluded proximal to the anastomosis. The anastomosis submerged in saline. Insufflation of the bowel showed no evidence of anastomotic leak. The bowel was decompressed and the scope removed. Gloves were changed. The abdomen was irrigated copiously with sterile water. A 19-Turkish round Jak drain was brought through a right lower quadrant stab wound, left in the true pelvis for postoperative drainage, secured to the skin with a silk stitch. A "ghost" ileostomy was then created bypassing a large vessel loop around the distal small bowel and delivering it out on to the abdominal wall without creating any obstruction. It was secured with a 4-0 nylon to the skin. We again checked for adequate hemostasis and when present and a correct sponge count was obtained, the incision was closed with a single layer of looped 0 PDS in running fashion, tied in the middle. Wound was irrigated and checked for hemostasis. When present, the wound was closed with interrupted 3-0 Vicryl in the subcutaneous tissue and a subcuticular 4-0 Monocryl in the skin. Postop foreign body film was negative for unexplained foreign body. Sterile dressings applied. The patient was awakened from his anesthetic and taken to the recovery room in satisfactory condition. DUONG SUH MD DR: FRANKO/sonia JOB#: [id number] / [id number]
[2017-09-01 19:00] VITALS: BP 136/77
[2017-09-01 23:00] VITALS: BP 127/79
[2017-09-02] MEDS: AMINO AC 3%/ELECTROLYTE/GLYCER 1,000 ML IV SCH ×2 (02:24→11:36)
[2017-09-02 02:56] VITALS: BP 131/76
[2017-09-02 07:20] LABS: HEMATOCRIT 25.9 % (39.0-53.0); HEMOGLOBIN 7.9 g/dL (13.0-17.5)
[2017-09-02 07:45] VITALS: BP 124/74
[2017-09-02] MEDS: LACTOBACILLUS RHAMNOSUS GG 1 CAPSULE. PO SCH ×2 (09:00→20:55)
[2017-09-02] MEDS: FAMOTIDINE 20 MG/2 ML VIAL IVP SCH ×2 (09:42→20:54)
[2017-09-02] MEDS: CIPROFLOXACIN 400MG PREMIX 200 ML IV SCH ×2 (09:42→20:58)
[2017-09-02] MEDS: ENOXAPARIN 40 MG/0.4 ML SYRINGE. SQ SCH (09:43)
--- NOTE | 2017-09-02 09:43 | PDOC ---
PROGRESS NOTES Chief Complaint Chief Complaint melena, hematochezia ASSESSMENT AND PLAN: 1. Sigmoid mass: highly suspicious for malignancy. Hem/Onc following; await path report 2. s/p resection 08/30. recovering appropriately. wound care as per surgical team 3. Pain control: on PANEL CUTTER; switch to PRN 4. Microcytic anemia: severe. iron studies c/w iron deficiency due to chronic GIB. venofer x1, PO iron on O/P basis 5. Hypomagnesemia: repleted. monitor 6. Nutrition: on Procalamine while NPO History of Present Illness History of Present Illness annoyed at not being able to eat. pain at surgical site, mainly with moving Vitals Vitals Vital Signs Date Time Temp Pulse Resp B/P (MAP) Pulse Ox O2 Delivery O2 Flow Rate FiO2 09/02/17 08:00 Room Air 09/02/17 07:45 98.0 91 18 124/74 (91) 97 98.0 09/01/17 19:49 2.0 Physical Exam General: Alert, Oriented X3, No acute distress Heart: Regular rate, No murmurs Lungs: Clear Abdomen: Soft, Other (midline incision covered. serosang fluid in CHRIS) Extremities: No edema Skin: No rashes Labs LABS Laboratory Tests Test 09/02/17 06:10 Hemoglobin 7.9 g/dL (13.0-17.5) Hematocrit 25.9 % (39.0-53.0) Mean Corpuscular Hemoglobin Concent 31 g/dL (31-37) Magnesium Level 1.9 mg/dL (1.8-2.4) SHANIQUE MORAES MD Sep 02, 2017 09:43
[2017-09-02 10:30] VITALS: BP 132/81
[2017-09-02] MEDS ORDERED: IRON SUCROSE COMPLEX 500 MG in IV NORMAL SALINE 250ML 250 ML IV ONE ×2 (10:30→12:15)
[2017-09-02] MEDS ORDERED: HYDROmorphone 2 MG/ML VIAL IVP PRN (11:30)
--- NOTE | 2017-09-02 12:10 | PDOC ---
PROGRESS NOTES Subjective Subjective HPI- Adenocarcinoma of the sigmoid colon diagnosed by colonoscopy by Dr. Gerard Taylor on 08/29/2017, status post sigmoid colon resection by Dr. Brooks on 08/30/2017. ROS - no abd pain Objective Objective Vital Signs Date Time Temp Pulse Resp B/P (MAP) Pulse Ox O2 Delivery O2 Flow Rate FiO2 09/02/17 10:30 98.1 75 18 132/81 (98) 98 Room Air 98.1 09/01/17 19:49 2.0 Intake and Output 09/02/17 07:00 Intake Total 2750 ml Output Total 4610 ml Balance -1860 ml IV Total 2750 ml Output Urine Total 4400 ml Drainage Total 210 ml Physical Exam Heart: Normal S1, Normal S2 General: Alert, Oriented X3 Lungs: Clear to auscultation Neuro: Normal speech Psych/Mental Status: Mental status NL Assessment Assessment Problems Medical Problems: (1) Diverticulitis Status: Acute IMPRESSION AND PLAN: 1. Adenocarcinoma of the sigmoid colon diagnosed by colonoscopy by Dr. Gerard Taylor on 08/29/2017, status post sigmoid colon resection by Dr. Brooks on 08/30/2017. I will await final pathology results from the surgery, which would help with staging and also decide upon the role of adjuvant chemotherapy. I discussed in detail with the patient. 2. Microcytic anemia secondary to iron deficiency. Hemoglobin 10.2 on 08/28/2017 and 8.3 on 08/30/2017. Continue to monitor hemoglobin. Plan iron supplementation. Hb worse at 7.9. Plan venofer infusion 09/02/17. Comment Review of Relevant I have reviewed the following items deloris (where applicable) has been applied. Labs Laboratory Tests Test 08/31/17 16:05 09/01/17 05:00 09/02/17 06:10 Potassium Level 4.1 mmol/L (3.5-5.1) 4.6 mmol/L (3.5-5.1) White Blood Count 7.4 x10^3/uL (4.0-11.0) Red Blood Count 3.70 x10^6/uL (4.30-5.70) Hemoglobin 7.4 g/dL (13.0-17.5) 7.9 g/dL (13.0-17.5) Hematocrit 24.4 % (39.0-53.0) 25.9 % (39.0-53.0) Mean Corpuscular Volume 66 fL (79-100) Mean Corpuscular Hemoglobin 20 pg (25-35) Mean Corpuscular Hemoglobin Concent 30 g/dL (31-37) 31 g/dL (31-37) Red Cell Distribution Width 18.1 % (11.5-14.5) Platelet Count 280 x10^3/uL (140-400) Neutrophils (%) (Auto) 82 % (31-73) Lymphocytes (%) (Auto) 12 % (24-48) Monocytes (%) (Auto) 5 % (0-9) Eosinophils (%) (Auto) 2 % (0-3) Basophils (%) (Auto) 0 % (0-3) Neutrophils # (Auto) 6.1 x10^3uL (1.8-7.7) Lymphocytes # (Auto) 0.9 x10^3/uL (1.0-4.8) Monocytes # (Auto) 0.3 x10^3/uL (0.0-1.1) Eosinophils # (Auto) 0.1 x10^3/uL (0.0-0.7) Basophils # (Auto) 0.0 x10^3/uL (0.0-0.2) Reticulocyte Count (auto) 1.0 % (0.5-2.5) Sodium Level 135 mmol/L (136-145) Chloride Level 100 mmol/L (98-107) Carbon Dioxide Level 30 mmol/L (21-32) Anion Gap 5 (6-14) Blood Urea Nitrogen 6 mg/dL (8-26) Creatinine 0.7 mg/dL (0.7-1.3) Estimated GFR (Cockcroft-Gault) 116.2 Glucose Level 76 mg/dL (70-99) Calcium Level 8.0 mg/dL (8.5-10.1) Magnesium Level 1.6 mg/dL (1.8-2.4) 1.9 mg/dL (1.8-2.4) Iron Level 10 ug/dL (65-175) Total Iron Binding Capacity 280 ug/dL (250-450) Iron Saturation 4 % (15-34) Ferritin 25 ng/mL (26-388) Laboratory Tests Test 09/02/17 06:10 Hemoglobin 7.9 g/dL (13.0-17.5) Hematocrit 25.9 % (39.0-53.0) Mean Corpuscular Hemoglobin Concent 31 g/dL (31-37) Magnesium Level 1.9 mg/dL (1.8-2.4) Microbiology 08/30/17 Anaerobic/Aerobic Culture - Final, Complete 08/30/17 Anaerobic Culture Result 1 (VINAY) - Final, Complete 08/30/17 Aerobic Culture - Final, Complete 08/30/17 Aerobic Culture Result 1 (VINAY) - Final, Complete Medications Current Medications Sodium Chloride 1,000 ml @ 1,000 mls/hr 1X ONCE IV Last administered on 07:48; Start 08/28/17 at 07:45; Stop 08/28/17 at 08:44; Status DC Ondansetron HCl (Zofran) 4 mg 1X ONCE IV Last administered on 08/28/17 07:48 ; Start 08/28/17 at 07:45; Stop 08/28/17 at 07:46; Status DC Pantoprazole Sodium (Protonix Vial) 40 mg 1X ONCE IVP Last administered on 07:50; Start 08/28/17 at 07:45; Stop 08/28/17 at 07:46; Status DC Morphine Sulfate 2 mg PRN Q15MIN PRN IV/SQ PAIN GREATER THAN 3/10; Start at 07:45; Stop 08/29/17 at 07:44; Status DC Ondansetron HCl (Zofran) 4 mg PRN Q8HRS PRN IV NAUSEA/VOMITING; Start 08/28/17 at 10:00; Stop 08/29/17 at 09:59; Status DC Morphine Sulfate 2 mg PRN Q2HR PRN IV PAIN; Start 08/28/17 at 10:00; Stop 08/29 at 09:59; Status DC Sodium Chloride 1,000 ml @ 125 mls/hr Q8H IV Last administered on 08/29/17 02 :05; Start 08/28/17 at 09:49; Stop 08/29/17 at 09:48; Status DC Ciprofloxacin/ Dextrose 200 ml @ 200 mls/hr 1X ONCE IV Last administered on 08/28/17 10:24; Start 08/28/17 at 10:00; Stop 08/28/17 at 10:59; Status DC Metronidazole 100 ml @ 100 mls/hr Q8HRS IV Last administered on 09/02/17 05: 09; Start 08/28/17 at 11:00 Metronidazole 100 ml @ 100 mls/hr 1X ONCE IV ; Start 08/28/17 at 10:00; Stop 08/28/17 at 10:59; Status Cancel Ciprofloxacin/ Dextrose 200 ml @ 200 mls/hr Q12HR IV Last administered on 09:42; Start 08/28/17 at 21:00 Famotidine (Pepcid Vial) 20 mg BID IVP Last administered on 09/02/17 09:42; Start 08/28/17 at 12:00 Polyethylene Glycol (miraLAX Powder BULK BOTTLE) 238 gm 1X ONCE PO Last administered on 08/28/17 17:26; Start 08/28/17 at 16:00; Stop 08/28/17 at 16:01 ; Status DC Bisacodyl (Dulcolax Tab) 10 mg 1X ONCE PO Last administered on 08/28/17 14:56 ; Start 08/28/17 at 15:00; Stop 08/28/17 at 15:01; Status DC Lactobacillus Rhamnosus (Culturelle) 1 cap BID PO Last administered on 21:03; Start 08/28/17 at 21:00 Fentanyl Citrate (Fentanyl 2ml Vial) 25 mcg PRN Q5MIN PRN IV MILD PAIN; Start 08/29/17 at 07:00; Stop 08/29/17 at 18:00; Status DC Fentanyl Citrate (Fentanyl 2ml Vial) 50 mcg PRN Q5MIN PRN IV MODERATE PAIN; Start 08/29/17 at 07:00; Stop 08/29/17 at 18:00; Status DC Morphine Sulfate 1 mg PRN Q10MIN PRN IV SEVERE PAIN; Start 08/29/17 at 07:00; Stop 08/29/17 at 18:00; Status DC Ringer's Solution 1,000 ml @ 30 mls/hr Q24H IV Last administered on 08/29/17 13:58; Start 08/29/17 at 07:00; Stop 08/29/17 at 18:59; Status DC Lidocaine HCl (Xylocaine-Mpf 1% Vial) 2 ml PRN 1X PRN ID IV START; Start at 07:00; Stop 08/29/17 at 18:00; Status DC Hydromorphone HCl (Dilaudid) 0.5 mg PRN Q10MIN PRN IV SEV PAIN, Second choice; Start 08/29/17 at 07:00; Stop 08/29/17 at 18:00; Status DC Prochlorperazine Edisylate (Compazine) 5 mg PACU PRN PRN IV NAUSEA, MRX1; Start 08/29/17 at 07:00; Stop 08/29/17 at 18:00; Status DC Nicotine (Nicoderm Cq 21mg) 1 patch PRN DAILY PRN TD SMOKING CESSATION; Start 08/28/17 at 16:00 Nicotine Polacrilex (Nicorette Gum) 1 each PRN Q1HR PRN BC SMOKING CESSATION Last administered on 08/29/17t 08:37; Start 08/28/17 at 16:00 Midazolam HCl (Versed) 2 mg PRN 1X PRN IV PRIOR TO PROCEDURE; Start 08/29/17 at 10:45; Stop 08/30/17 at 10:44; Status DC Fentanyl Citrate (Fentanyl 2ml Vial) 25 mcg PRN Q5MIN PRN IV X 2 DOSES FOR PAIN ; Start 08/29/17 at 10:45; Stop 08/30/17 at 10:44; Status DC Fentanyl Citrate (Fentanyl 2ml Vial) 50 mcg PRN Q5MIN PRN IV X 2 DOSES FOR PAIN ; Start 08/29/17 at 10:45; Stop 08/30/17 at 10:44; Status DC Ringer's Solution 1,000 ml @ 125 mls/hr Q8H IV ; Start 08/29/17 at 10:32; Stop 08/29/17 at 20:00; Status DC Lidocaine HCl (Xylocaine-Mpf 1% Vial) 2 ml 1X PRN PRN ID IV START; Start at 10:45; Stop 08/30/17 at 10:44; Status DC Propofol 20 ml @ As Directed STK-MED ONCE IV ; Start 08/29/17 at 14:27; Stop at 14:28; Status DC Lidocaine HCl (Lidocaine Pf 2% Vial) 5 ml STK-MED ONCE .ROUTE ; Start 08/29/17 at 14:27; Stop 08/29/17 at 14:28; Status DC Propofol 20 ml @ As Directed STK-MED ONCE IV ; Start 08/29/17 at 14:28; Stop at 14:29; Status DC Propofol 20 ml @ As Directed STK-MED ONCE IV ; Start 08/30/17 at 10:26; Stop 08/30/17 at 10:27; Status DC Lidocaine HCl (Lidocaine Pf 2% Vial) 5 ml STK-MED ONCE .ROUTE ; Start 08/30/17 at 10:26; Stop 08/30/17 at 10:27; Status DC Dexamethasone Sodium Phosphate (Decadron) 20 mg STK-MED ONCE .ROUTE ; Start 08/06 at 10:26; Stop 08/30/17 at 10:27; Status DC Ondansetron HCl (Zofran) 4 mg STK-MED ONCE .ROUTE ; Start 08/30/17 at 10:26; Stop 08/30/17 at 10:27; Status DC Midazolam HCl (Versed) 2 mg STK-MED ONCE .ROUTE ; Start 08/30/17 at 10:27; Stop 08/30/17 at 10:28; Status DC Fentanyl Citrate (Fentanyl 5ml Vial) 250 mcg STK-MED ONCE .ROUTE ; Start at 10:27; Stop 08/30/17 at 10:28; Status DC Succinylcholine Chloride (Anectine) 200 mg STK-MED ONCE .ROUTE ; Start at 10:28; Stop 08/30/17 at 10:29; Status DC Rocuronium [place] (Zemuron) 50 mg STK-MED ONCE .ROUTE ; Start 08/30/17 at 10: 28; Stop 08/30/17 at 10:29; Status DC Cefoxitin Sodium 2 gm/Dextrose 100 ml @ 200 mls/hr 1X ONCE IV ; Start at 10:45; Stop 08/30/17 at 11:14; Status UNV Cefoxitin Sodium 100 ml @ 200 mls/hr ONCE ONCE IV Last administered on t 11:10; Start 08/30/17 at 11:00; Stop 08/30/17 at 11:29; Status DC Rocuronium [place] (Zemuron) 50 mg STK-MED ONCE .ROUTE ; Start 08/30/17 at 11: 20; Stop 08/30/17 at 11:21; Status DC Ephedrine Sulfate (Akovaz) 50 mg STK-MED ONCE .ROUTE ; Start 08/30/17 at 11:23 ; Stop 08/30/17 at 11:24; Status DC Ringer's Solution 1,000 ml @ 30 mls/hr Q24H IV Last administered on t 02:36; Start 08/30/17 at 11:45; Stop 09/01/17 at 19:38; Status DC Neostigmine Methylsulfate (Bloxiverz) 10 mg STK-MED ONCE .ROUTE ; Start at 12:54; Stop 08/30/17 at 12:55; Status DC Glycopyrrolate (Robinul) 1 mg STK-MED ONCE .ROUTE ; Start 08/30/17 at 12:54; Stop 08/30/17 at 12:55; Status DC Sevoflurane (Ultane) 90 ml STK-MED ONCE IH ; Start 08/30/17 at 13:00; Stop 08/06 at 13:01; Status DC Morphine Sulfate 10 mg STK-MED ONCE .ROUTE ; Start 08/30/17 at 13:35; Stop 08/06 at 13:36; Status DC Phenylephrine HCl (Kota-Synephrine Inj) 10 mg STK-MED ONCE .ROUTE ; Start at 14:18; Stop 08/30/17 at 14:19; Status DC Sodium Chloride (Sodium Chloride) 50 ml STK-MED ONCE IJ ; Start 08/30/17 at 14: 18; Stop 08/30/17 at 14:19; Status DC Morphine Sulfate 2 mg STK-MED ONCE .ROUTE ; Start 08/30/17 at 15:07; Stop 08/06 at 15:08; Status DC Fentanyl Citrate (Fentanyl 2ml Vial) 100 mcg STK-MED ONCE .ROUTE ; Start at 15:08; Stop 08/30/17 at 15:09; Status DC Ondansetron HCl (Zofran) 4 mg PRN Q6HRS PRN IV NAUSEA/VOMITING; Start at 15:15; Stop 08/31/17 at 15:14; Status DC Fentanyl Citrate (Fentanyl 2ml Vial) 25 mcg PRN Q5MIN PRN IV MILD PAIN Last administered on 08/30/17t 16:07; Start 08/30/17 at 15:15; Stop 08/31/17 at 15 :14; Status DC Fentanyl Citrate (Fentanyl 2ml Vial) 50 mcg PRN Q5MIN PRN IV MODERATE PAIN Last administered on 08/30/17 16:20; Start 08/30/17 at 15:15; Stop 08/31/17 at 15:14; Status DC Morphine Sulfate 1 mg PRN Q10MIN PRN IV SEVERE PAIN Last administered on 15:56; Start 08/30/17 at 15:15; Stop 08/31/17 at 15:14; Status DC Ringer's Solution 1,000 ml @ 0 mls/hr Q0M IV ; Start 08/30/17 at 15:11; Stop 08/31/17 at 03:10; Status DC Lidocaine HCl (Xylocaine-Mpf 1% Vial) 2 ml PRN 1X PRN ID PRIOR TO IV START; Start 08/30/17 at 15:15; Stop 08/31/17 at 15:14; Status DC Hydromorphone HCl (Dilaudid) 0.5 mg PRN Q10MIN PRN IV SEV PAIN, Second choice; Start 08/30/17 at 15:15; Stop 08/31/17 at 15:14; Status DC Prochlorperazine Edisylate (Compazine) 5 mg PACU PRN PRN IV NAUSEA, MRX1; Start 08/30/17 at 15:15; Stop 08/31/17 at 15:14; Status DC Ondansetron HCl (Zofran) 4 mg PRN Q6HRS PRN IV NAUSEA/VOMITING; Start at 15:30; Stop 08/31/17 at 15:29; Status UNV Fentanyl Citrate (Fentanyl 2ml Vial) 25 mcg PRN Q5MIN PRN IV MILD PAIN; Start 08/30/17 at 15:30; Stop 08/31/17 at 15:29; Status UNV Fentanyl Citrate (Fentanyl 2ml Vial) 50 mcg PRN Q5MIN PRN IV MODERATE PAIN; Start 08/30/17 at 15:30; Stop 08/31/17 at 15:29; Status UNV Morphine Sulfate 1 mg PRN Q10MIN PRN IV SEVERE PAIN; Start 08/30/17 at 15:30; Stop 08/31/17 at 15:29; Status UNV Ringer's Solution 1,000 ml @ 0 mls/hr Q0M IV ; Start 08/30/17 at 15:16; Stop 08/31/17 at 03:15; Status UNV Lidocaine HCl (Xylocaine-Mpf 1% Vial) 2 ml PRN 1X PRN ID PRIOR TO IV START; Start 08/30/17 at 15:30; Stop 08/31/17 at 15:29; Status UNV Hydromorphone HCl (Dilaudid) 0.5 mg PRN Q10MIN PRN IV SEV PAIN, Second choice; Start 08/30/17 at 15:30; Stop 08/31/17 at 15:29; Status UNV Prochlorperazine Edisylate (Compazine) 5 mg PACU PRN PRN IV NAUSEA, MRX1; Start 08/30/17 at 15:30; Stop 08/31/17 at 15:29; Status UNV Diphenhydramine HCl (Benadryl) 25 mg PRN Q6HRS PRN IV ITCHING; Start 08/30/17 at 15:30 Enoxaparin Sodium (Lovenox 40mg Syringe) 40 mg Q24H SQ Last administered on 09:43; Start 08/31/17 at 09:00 Sodium Chloride (Normal Saline Flush) 3 ml QSHIFT PRN IV AFTER MEDS AND BLOOD DRAWS; Start 08/30/17 at 15:30 Potassium Chloride/Sodium Chloride 1,000 ml @ 100 mls/hr Q10H IV Last administered on 08/31/17 04:10; Start 08/30/17 at 15:27; Stop 08/31/17 at 11 :04; Status DC Hydromorphone HCl 30 ml @ 0 mls/hr CONT PRN PRN IV PROTOCOL Last administered on 08/31/17 05:32; Start 08/30/17 at 15:30; Stop 09/02/17 at 11:20; Status DC Ondansetron HCl (Zofran) 4 mg PRN Q6HRS PRN IV NAUESA, 1ST CHOICE Last administered on 09/01/17 10:21; Start 08/30/17 at 15:30 Throat Lozenges (Cepacol Sore Throat Lozenge) 1 michael PRN Q2HRS PRN PO SORE THROAT Last administered on 08/31/17 11:56; Start 08/30/17 at 15:30 Throat Lozenges (Chloraseptic) 1 spray PRN Q2HR PRN PO SORE THROAT; Start 08/06 at 15:30 Fentanyl Citrate (Fentanyl 2ml Vial) 100 mcg STK-MED ONCE .ROUTE ; Start at 16:03; Stop 08/30/17 at 16:04; Status DC Sodium Chloride 500 ml @ 100 mls/hr 1X ONCE IV Last administered on 11:53; Start 08/31/17 at 11:30; Stop 08/31/17 at 16:29; Status DC Magnesium Sulfate/ Dextrose 50 ml @ 25 mls/hr 1X ONCE IV Last administered on 08/31/17 12:18; Start 08/31/17 at 11:45; Stop 08/31/17 at 13:44; Status DC Magnesium Sulfate/ Dextrose 50 ml @ 25 mls/hr 1X ONCE IV Last administered on 09/01/17 10:22; Start 09/01/17 at 08:45; Stop 09/01/17 at 10:44; Status DC Amino Acids/ Glycerin/ Electrolytes 1,000 ml @ 80 mls/hr [id number] IV Last administered on 09/02/17 11:36; Start 09/01/17 at 10:30 Cefoxitin Sodium (Mefoxin 1gm Ivpb For Omni) 1 gm STK-MED ONCE IV ; Start 08/30 at 13:46; Stop 09/02/17 at 08:40; Status DC Iron Sucrose 500 mg/Sodium Chloride 275 ml @ 78.571 mls/ hr 1X ONCE IV Last administered on 09/02/17 11:35; Start 09/02/17 at 10:30; Stop 09/02/17 at 13 :59 Hydromorphone HCl (Dilaudid) 0.3 mg PRN Q4HRS PRN IVP PAIN; Start 09/02/17 at 11:30 Vitals/I & O Vital Sign - Last 24 Hours 09/01/17 09/01/17 09/01/17 09/01/17 15:00 19:00 19:49 23:00 Temp 98.3 99.0 97.9 98.3 99.0 97.9 Pulse 87 90 93 Resp 18 18 18 B/P (MAP) 114/71 (85) 136/77 (96) 127/79 (95) Pulse Ox 97 97 95 O2 Delivery Room Air Room Air Nasal Cannula Room Air O2 Flow Rate 2.0 09/02/17 09/02/17 09/02/17 09/02/17 02:56 07:45 08:00 08:30 Temp 97.9 98.0 97.9 98.0 Pulse 93 91 Resp 18 18 B/P (MAP) 131/76 (94) 124/74 (91) Pulse Ox 97 97 O2 Delivery Room Air Room Air Room Air Room Air 09/02/17 10:30 Temp 98.1 98.1 Pulse 75 Resp 18 B/P (MAP) 132/81 (98) Pulse Ox 98 O2 Delivery Room Air Intake and Output 09/01/17 09/01/17 09/02/17 15:00 23:00 07:00 Intake Total 1250 ml 300 ml 1200 ml Output Total 2120 ml 2490 ml Balance 1250 ml -1820 ml -1290 ml FARHAN BARTLETT MD Sep 02, 2017 12:10
--- NOTE | 2017-09-02 13:05 | PDOC ---
SURGICAL PROGRESS NOTE Subjective not much pain doesn't like [employer], caused him to "see spiders" Vital Signs Vital Signs Date Time Temp Pulse Resp B/P (MAP) Pulse Ox O2 Delivery O2 Flow Rate FiO2 09/02/17 10:30 98.1 75 18 132/81 (98) 98 Room Air 98.1 09/01/17 19:49 2.0 I&O Intake and Output 09/02/17 06:59 Intake Total 2750 ml Output Total 4610 ml Balance -1860 ml IV Total 2750 ml Output Urine Total 4400 ml Drainage Total 210 ml PATIENT HAS A PATE: No General: Alert, Oriented X3, No acute distress Abdomen: Soft, Other (dressing dry) Labs Laboratory Tests Test 08/31/17 16:05 09/01/17 05:00 09/02/17 06:10 Potassium Level 4.1 mmol/L (3.5-5.1) 4.6 mmol/L (3.5-5.1) White Blood Count 7.4 x10^3/uL (4.0-11.0) Red Blood Count 3.70 x10^6/uL (4.30-5.70) Hemoglobin 7.4 g/dL (13.0-17.5) 7.9 g/dL (13.0-17.5) Hematocrit 24.4 % (39.0-53.0) 25.9 % (39.0-53.0) Mean Corpuscular Volume 66 fL (79-100) Mean Corpuscular Hemoglobin 20 pg (25-35) Mean Corpuscular Hemoglobin Concent 30 g/dL (31-37) 31 g/dL (31-37) Red Cell Distribution Width 18.1 % (11.5-14.5) Platelet Count 280 x10^3/uL (140-400) Neutrophils (%) (Auto) 82 % (31-73) Lymphocytes (%) (Auto) 12 % (24-48) Monocytes (%) (Auto) 5 % (0-9) Eosinophils (%) (Auto) 2 % (0-3) Basophils (%) (Auto) 0 % (0-3) Neutrophils # (Auto) 6.1 x10^3uL (1.8-7.7) Lymphocytes # (Auto) 0.9 x10^3/uL (1.0-4.8) Monocytes # (Auto) 0.3 x10^3/uL (0.0-1.1) Eosinophils # (Auto) 0.1 x10^3/uL (0.0-0.7) Basophils # (Auto) 0.0 x10^3/uL (0.0-0.2) Reticulocyte Count (auto) 1.0 % (0.5-2.5) Sodium Level 135 mmol/L (136-145) Chloride Level 100 mmol/L (98-107) Carbon Dioxide Level 30 mmol/L (21-32) Anion Gap 5 (6-14) Blood Urea Nitrogen 6 mg/dL (8-26) Creatinine 0.7 mg/dL (0.7-1.3) Estimated GFR (Cockcroft-Gault) 116.2 Glucose Level 76 mg/dL (70-99) Calcium Level 8.0 mg/dL (8.5-10.1) Magnesium Level 1.6 mg/dL (1.8-2.4) 1.9 mg/dL (1.8-2.4) Iron Level 10 ug/dL (65-175) Total Iron Binding Capacity 280 ug/dL (250-450) Iron Saturation 4 % (15-34) Ferritin 25 ng/mL (26-388) Laboratory Tests Test 09/02/17 06:10 Hemoglobin 7.9 g/dL (13.0-17.5) Hematocrit 25.9 % (39.0-53.0) Mean Corpuscular Hemoglobin Concent 31 g/dL (31-37) Magnesium Level 1.9 mg/dL (1.8-2.4) Hb better Problem List Problems Medical Problems: (1) Diverticulitis Status: Acute Assessment/Plan POD 3 start clears Problems: BENJI SUH MD Sep 02, 2017 13:05
[2017-09-02 14:30] VITALS: BP 129/79
[2017-09-02] MEDS: oxyCODONE/APAP 5/325 1 TAB TABLET PO PRN ×2 (15:45→20:55)
[2017-09-02] MEDS: ONDANSETRON PF 4 MG/2 ML VIAL. IV PRN (16:06)
[2017-09-02 19:00] VITALS: BP 134/84
[2017-09-02] MEDS: diphenhydrAMINE 50 MG/ML VIAL IV PRN (20:55)
[2017-09-02 23:19] VITALS: BP 123/83
[2017-09-03] MEDS: AMINO AC 3%/ELECTROLYTE/GLYCER 1,000 ML IV SCH ×2 (00:36→13:40)
[2017-09-03 03:00] VITALS: BP 122/77
[2017-09-03 05:20] LABS: BASO % 0 % (0-3); EOS % 4 % (0-3); HEMATOCRIT 26.8 % (39.0-53.0); HEMOGLOBIN 8.3 g/dL (13.0-17.5); LYMPH # 0.8 x10^3/uL (1.0-4.8); LYMPH % 13 % (24-48); MEAN CORPUSCULAR HEMOGLOBIN 20 pg (25-35); MEAN CORPUSCULAR HGB CONC 31 g/dL (31-37); MEAN CORPUSCULAR VOLUME 64 fL (79-100); MONO % 5 % (0-9); NEUT % 77 % (31-73); PLATELET COUNT 310 x10^3/uL (140-400); RED BLOOD COUNT 4.21 x10^6/uL (4.30-5.70); RED CELL DISTRIBUTION WIDTH 18.3 % (11.5-14.5); WHITE BLOOD COUNT 5.7 x10^3/uL (4.0-11.0)
[2017-09-03 05:45] LABS: ALBUMIN/GLOBULIN RATIO 0.5 (1.0-1.7); CALCIUM 8.3 mg/dL (8.5-10.1); CREATININE 0.6 mg/dL (0.7-1.3); GFR 138.9; POTASSIUM 3.4 mmol/L (3.5-5.1); TOTAL BILIRUBIN 0.2 mg/dL (0.2-1.0)
[2017-09-03 07:30] VITALS: BP 112/76
[2017-09-03] MEDS: FAMOTIDINE 20 MG/2 ML VIAL IVP SCH ×2 (08:33→19:45)
[2017-09-03] MEDS: LACTOBACILLUS RHAMNOSUS GG 1 CAPSULE. PO SCH ×2 (08:34→19:45)
[2017-09-03] MEDS: CIPROFLOXACIN 400MG PREMIX 200 ML IV SCH ×2 (08:34→19:46)
[2017-09-03] MEDS: ENOXAPARIN 40 MG/0.4 ML SYRINGE. SQ SCH (08:34)
--- NOTE | 2017-09-03 08:35 | PDOC ---
PROGRESS NOTES Chief Complaint Chief Complaint melena, hematochezia ASSESSMENT AND PLAN: 1. Sigmoid mass: highly suspicious for malignancy. Hem/Onc following; await path report 2. s/p resection 08/30. recovering appropriately. wound care as per surgical team 3. Pain control: well controlled 4. Microcytic anemia: severe. iron studies c/w iron deficiency due to chronic GIB. IV venofer, PO iron on O/P basis 5. Hypomagnesemia: repleted. monitor 6. Hypokalemia: mild. replete PO 7. Nutrition: on clear liquids, with nausea this AM. cont Procalamine for now History of Present Illness History of Present Illness nauseous, threw up breakfast. no pain Vitals Vitals Vital Signs Date Time Temp Pulse Resp B/P (MAP) Pulse Ox O2 Delivery O2 Flow Rate FiO2 09/03/17 07:11 Nasal Cannula 2.0 09/03/17 03:00 97.9 78 18 122/77 (92) 98 97.9 Physical Exam General: Alert, Oriented X3, Cooperative, No acute distress Heart: Regular rate, No murmurs Lungs: Clear Abdomen: Soft, Other (midline incision well healing. serous fluid in CHRIS) Extremities: No edema Skin: No rashes Labs LABS Laboratory Tests Test 09/03/17 04:21 White Blood Count 5.7 x10^3/uL (4.0-11.0) Red Blood Count 4.21 x10^6/uL (4.30-5.70) Hemoglobin 8.3 g/dL (13.0-17.5) Hematocrit 26.8 % (39.0-53.0) Mean Corpuscular Volume 64 fL (79-100) Mean Corpuscular Hemoglobin 20 pg (25-35) Mean Corpuscular Hemoglobin Concent 31 g/dL (31-37) Red Cell Distribution Width 18.3 % (11.5-14.5) Platelet Count 310 x10^3/uL (140-400) Neutrophils (%) (Auto) 77 % (31-73) Lymphocytes (%) (Auto) 13 % (24-48) Monocytes (%) (Auto) 5 % (0-9) Eosinophils (%) (Auto) 4 % (0-3) Basophils (%) (Auto) 0 % (0-3) Neutrophils # (Auto) 4.4 x10^3uL (1.8-7.7) Lymphocytes # (Auto) 0.8 x10^3/uL (1.0-4.8) Monocytes # (Auto) 0.3 x10^3/uL (0.0-1.1) Eosinophils # (Auto) 0.2 x10^3/uL (0.0-0.7) Basophils # (Auto) 0.0 x10^3/uL (0.0-0.2) Sodium Level 138 mmol/L (136-145) Potassium Level 3.4 mmol/L (3.5-5.1) Chloride Level 103 mmol/L (98-107) Carbon Dioxide Level 32 mmol/L (21-32) Anion Gap 3 (6-14) Blood Urea Nitrogen 8 mg/dL (8-26) Creatinine 0.6 mg/dL (0.7-1.3) Estimated GFR (Cockcroft-Gault) 138.9 BUN/Creatinine Ratio 13 (6-20) Glucose Level 103 mg/dL (70-99) Calcium Level 8.3 mg/dL (8.5-10.1) Total Bilirubin 0.2 mg/dL (0.2-1.0) Aspartate Amino Transf (AST/SGOT) 15 U/L (15-37) Alanine Aminotransferase (ALT/SGPT) 10 U/L (16-63) Alkaline Phosphatase 54 U/L (46-116) Total Protein 6.0 g/dL (6.4-8.2) Albumin 2.0 g/dL (3.4-5.0) Albumin/Globulin Ratio 0.5 (1.0-1.7) Nutrition Consultation Dietary Evaluation: Recommendations by RD: PPN/TPN, Add supplement feedings Comments: send boost breeze while on clear liquids ppn until diet adv/ tolerated Expected Outcomes/Goals: to meet > 75% est nutr needs Malnutrition Findings: Food and Nutrition Intake (Sev: <50% est energy req 5days Weight Status: Appropriate SHANIQUE MORAES MD Sep 03, 2017 08:35
[2017-09-03] MEDS ORDERED: POTASSIUM CHLORIDE 20 MEQ TABLET.ER. PO ONE (08:45)
--- NOTE | 2017-09-03 09:47 | PDOC ---
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 Subjective taking few clears no flatus no emesis mild bloating Vital Signs Vital Signs Date Time Temp Pulse Resp B/P (MAP) Pulse Ox O2 Delivery O2 Flow Rate FiO2 09/03/17 07:30 97.7 94 18 112/76 (88) 98 Room Air 97.7 09/03/17 07:11 2.0 I&O Intake and Output 09/03/17 07:00 Intake Total 1420 ml Output Total 2350 ml Balance -930 ml Intake Oral 720 ml IV Total 700 ml Output Urine Total 1960 ml Drainage Total 390 ml General: Alert, Oriented X3, Cooperative, No acute distress Abdomen: Soft, Other (ND, incision c/d/i, no erythema, mary serous ) Labs Laboratory Tests Test 09/02/17 06:10 09/03/17 04:21 Hemoglobin 7.9 g/dL (13.0-17.5) 8.3 g/dL (13.0-17.5) Hematocrit 25.9 % (39.0-53.0) 26.8 % (39.0-53.0) Mean Corpuscular Hemoglobin Concent 31 g/dL (31-37) 31 g/dL (31-37) Magnesium Level 1.9 mg/dL (1.8-2.4) White Blood Count 5.7 x10^3/uL (4.0-11.0) Red Blood Count 4.21 x10^6/uL (4.30-5.70) Mean Corpuscular Volume 64 fL (79-100) Mean Corpuscular Hemoglobin 20 pg (25-35) Red Cell Distribution Width 18.3 % (11.5-14.5) Platelet Count 310 x10^3/uL (140-400) Neutrophils (%) (Auto) 77 % (31-73) Lymphocytes (%) (Auto) 13 % (24-48) Monocytes (%) (Auto) 5 % (0-9) Eosinophils (%) (Auto) 4 % (0-3) Basophils (%) (Auto) 0 % (0-3) Neutrophils # (Auto) 4.4 x10^3uL (1.8-7.7) Lymphocytes # (Auto) 0.8 x10^3/uL (1.0-4.8) Monocytes # (Auto) 0.3 x10^3/uL (0.0-1.1) Eosinophils # (Auto) 0.2 x10^3/uL (0.0-0.7) Basophils # (Auto) 0.0 x10^3/uL (0.0-0.2) Sodium Level 138 mmol/L (136-145) Potassium Level 3.4 mmol/L (3.5-5.1) Chloride Level 103 mmol/L (98-107) Carbon Dioxide Level 32 mmol/L (21-32) Anion Gap 3 (6-14) Blood Urea Nitrogen 8 mg/dL (8-26) Creatinine 0.6 mg/dL (0.7-1.3) Estimated GFR (Cockcroft-Gault) 138.9 BUN/Creatinine Ratio 13 (6-20) Glucose Level 103 mg/dL (70-99) Calcium Level 8.3 mg/dL (8.5-10.1) Total Bilirubin 0.2 mg/dL (0.2-1.0) Aspartate Amino Transf (AST/SGOT) 15 U/L (15-37) Alanine Aminotransferase (ALT/SGPT) 10 U/L (16-63) Alkaline Phosphatase 54 U/L (46-116) Total Protein 6.0 g/dL (6.4-8.2) Albumin 2.0 g/dL (3.4-5.0) Albumin/Globulin Ratio 0.5 (1.0-1.7) Laboratory Tests Test 09/03/17 04:21 White Blood Count 5.7 x10^3/uL (4.0-11.0) Red Blood Count 4.21 x10^6/uL (4.30-5.70) Hemoglobin 8.3 g/dL (13.0-17.5) Hematocrit 26.8 % (39.0-53.0) Mean Corpuscular Volume 64 fL (79-100) Mean Corpuscular Hemoglobin 20 pg (25-35) Mean Corpuscular Hemoglobin Concent 31 g/dL (31-37) Red Cell Distribution Width 18.3 % (11.5-14.5) Platelet Count 310 x10^3/uL (140-400) Neutrophils (%) (Auto) 77 % (31-73) Lymphocytes (%) (Auto) 13 % (24-48) Monocytes (%) (Auto) 5 % (0-9) Eosinophils (%) (Auto) 4 % (0-3) Basophils (%) (Auto) 0 % (0-3) Neutrophils # (Auto) 4.4 x10^3uL (1.8-7.7) Lymphocytes # (Auto) 0.8 x10^3/uL (1.0-4.8) Monocytes # (Auto) 0.3 x10^3/uL (0.0-1.1) Eosinophils # (Auto) 0.2 x10^3/uL (0.0-0.7) Basophils # (Auto) 0.0 x10^3/uL (0.0-0.2) Sodium Level 138 mmol/L (136-145) Potassium Level 3.4 mmol/L (3.5-5.1) Chloride Level 103 mmol/L (98-107) Carbon Dioxide Level 32 mmol/L (21-32) Anion Gap 3 (6-14) Blood Urea Nitrogen 8 mg/dL (8-26) Creatinine 0.6 mg/dL (0.7-1.3) Estimated GFR (Cockcroft-Gault) 138.9 BUN/Creatinine Ratio 13 (6-20) Glucose Level 103 mg/dL (70-99) Calcium Level 8.3 mg/dL (8.5-10.1) Total Bilirubin 0.2 mg/dL (0.2-1.0) Aspartate Amino Transf (AST/SGOT) 15 U/L (15-37) Alanine Aminotransferase (ALT/SGPT) 10 U/L (16-63) Alkaline Phosphatase 54 U/L (46-116) Total Protein 6.0 g/dL (6.4-8.2) Albumin 2.0 g/dL (3.4-5.0) Albumin/Globulin Ratio 0.5 (1.0-1.7) Problem List Problems Medical Problems: (1) Diverticulitis Status: Acute Assessment/Plan POD#4 sigmoid resection, SBR await bowel function, increase activity Problems: BENJI SUH MD 09/03/17 1400: SURGICAL PROGRESS NOTE Assessment/Plan pt seen and examined sister at bedside agree with above continue ambulation Dr Bustamante et al to follow in my absence Problems: [employer]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
[2017-09-03 10:30] VITALS: BP 125/78
--- NOTE | 2017-09-03 13:13 | PDOC ---
Subjective: Subjective: Taking some liquids, feels queasy. Got up and "walked in place" earlier. Feels like might pass gas soon. Objective: Objective: PPN. Vital Signs: Vital Signs Date Time Temp Pulse Resp B/P (MAP) Pulse Ox O2 Delivery O2 Flow Rate FiO2 09/03/17 10:30 97.7 77 18 125/78 (94) 99 Room Air 97.7 09/03/17 07:11 2.0 Labs: Laboratory Tests Test 09/03/17 04:21 White Blood Count 5.7 x10^3/uL Red Blood Count 4.21 x10^6/uL Hemoglobin 8.3 g/dL Hematocrit 26.8 % Mean Corpuscular Volume 64 fL Mean Corpuscular Hemoglobin 20 pg Mean Corpuscular Hemoglobin Concent 31 g/dL Red Cell Distribution Width 18.3 % Platelet Count 310 x10^3/uL Neutrophils (%) (Auto) 77 % Lymphocytes (%) (Auto) 13 % Monocytes (%) (Auto) 5 % Eosinophils (%) (Auto) 4 % Basophils (%) (Auto) 0 % Neutrophils # (Auto) 4.4 x10^3uL Lymphocytes # (Auto) 0.8 x10^3/uL Monocytes # (Auto) 0.3 x10^3/uL Eosinophils # (Auto) 0.2 x10^3/uL Basophils # (Auto) 0.0 x10^3/uL Sodium Level 138 mmol/L Potassium Level 3.4 mmol/L Chloride Level 103 mmol/L Carbon Dioxide Level 32 mmol/L Anion Gap 3 Blood Urea Nitrogen 8 mg/dL Creatinine 0.6 mg/dL Estimated GFR (Cockcroft-Gault) 138.9 BUN/Creatinine Ratio 13 Glucose Level 103 mg/dL Calcium Level 8.3 mg/dL Total Bilirubin 0.2 mg/dL Aspartate Amino Transf (AST/SGOT) 15 U/L Alanine Aminotransferase (ALT/SGPT) 10 U/L Alkaline Phosphatase 54 U/L Total Protein 6.0 g/dL Albumin 2.0 g/dL Albumin/Globulin Ratio 0.5 PE: GEN: NAD LUNGS: CTAB HEART: RRR ABD: soft NEURO/PSYCH: A & O 3, flat A/P: Sigmoid cancer, adenocarcinoma, s/p resection -- Continue per surgery, oncology. ALEXIS ACEVEDO Sep 03, 2017 13:13
[2017-09-03 15:00] VITALS: BP 124/74
--- NOTE | 2017-09-03 15:42 | PATHOLOGY ---
PATHOLOGY REPORT * * * * * * * * FINAL DIAGNOSIS: Segment of small intestine and colon "sigmoid colon stitches distal, segmental resection": - INFILTRATING MODERATELY DIFFERENTIATED ADENOCARCINOMA measuring 7.5 cm in greatest dimension arising in the sigmoid colon and extending through the wall into the adjacent segment of small intestine. - The proximal and distal resection margins are free. - Lymph nodes (21 reactive changes negative for malignancy). SPECIMEN Specimen: Sigmoid colon Other: portion of small intestine Procedure: Sigmoidectomy Macroscopic Intactness of Mesorectum: Not applicable TUMOR Primary Tumor Site: Sigmoid colon Histologic Type: Adenocarcinoma Histologic Grade: Other: moderately differentiated Tumor Size: Greatest dimension (cm): 7.5 Tumor Deposits: Not identified Tumor Extent Site(s) of Direct Extent of Tumor: Sigmoid colon Other: small intestine Microscopic Tumor Extension: Tumor directly invades adjacent structures: small intestine Macroscopic Tumor Perforation: Present Accessory Tumor Findings Lymph-Vascular Invasion: Not identified Histologic Features Suggestive of Microsatellite Instability Intratumoral Lymphocytic Response (tumor-infiltrating lymphocytes): Mild to moderate (0-2 per high-power [X400] field) Peritumor Lymphocytic Response (Crohn-like response): Mild to moderate Tumor Subtype and Differentiation: Mucinous tumor component Specify Percentage of Mucinous Tumor Component: 5 Perineural Invasion: Not identified Type of Polyp in Which Invasive Carcinoma Arose: Tubulovillous adenoma MARGINS All margins uninvolved by invasive carcinoma Distance of Invasive Carcinoma from Closest Margin: Specify (cm): 5.2 Specify Margin: Proximal For Resection Specimens Only Proximal Margin: Uninvolved by invasive carcinoma Distal Margin: Uninvolved by invasive carcinoma Circumferential (Radial) Margin: Not applicable Mesenteric Margin: Not applicable LYMPH NODES Regional Lymph Nodes: Number of Lymph Nodes Examined: Specify number: 21 Number of Lymph Nodes Involved: Specify number: 0 STAGE (PTNM) Primary Tumor (pT): pT4b: Tumor directly invades or is adherent to other organs or structures Regional Lymph Nodes (pN): pN0: No regional lymph node metastasis ADDITIONAL FINDINGS Additional Pathologic Findings: None identified COMMENT: This case will also be reviewed by Dr. Benjamin Carrillo and if there are any changes, an additional report will follow. (RAMANDEEP:lucio; 09/03/2017) REPORT ELECTRONICALLY SIGNED BY: Juan Belle M.D. DATE/TIME: 09/03/2017 15:41 * * * * * * * * GROSS PATHOLOGY: Received in formalin labeled "Andry CruzRebeca, sigmoid colon stitch is distal" is an oriented segment of large bowel measuring 15.5 cm in length and 7.0 cm in internal circumference. Adhered to the large bowel is a segment of small bowel measuring 17.5 cm in length and 5.7 cm in internal circumference. The mucosal margins of the small and large bowel are closed with staple lines. There is a blue suture indicating the distal large bowel margin. Present within the large bowel is a firm ulcerated mass which measures 7.5 cm in length and 5.6 cm in internal circumference. The mass is adherent to the serosa of the small bowel, and invades up to but not through the small bowel mucosa. The mass measures 5.2 cm to the proximal large bowel margin, 6.1 cm to the distal large bowel margin, 6.0 and 10.2 cm to the small bowel margins, and 1.1 cm to the closest mesenteric margin. Also present within the large bowel, distal to the mass, is a 0.6 x 0.5 x 0.2 cm bhatia-black firm ulcerated area, which has surrounding tattoo ink. This area measures 10.0 cm to the proximal large bowel resection margin, 3.5 cm to be distal large bowel resection margin, and 3.5 cm to the mass. The mass is serially sectioned to reveal a greatest third dimension of 2.6 cm, and diffuse invasion into the pericolonic fat. The uninvolved large and small bowel mucosa is pink-baptiste with unremarkable folding. Multiple lymph nodes are identified ranging from 0.4-1.2 cm in greatest dimension. Ecological Technical Officer sections of the specimen are submitted as follows: A1 proximal large margin A2-A3 distal large bowel margin A4-A5 small bowel margins A6 closest mesenteric margin, en face A7 mass to small bowel A8 mass in pericolonic fat A9-A10 mass to adjacent uninvolved mucosa A11-A13 additional sections of mass A14-A15 entire ulcerated area in large bowel A16-A17 multiple whole lymph nodes A18-A19 two bisected lymph node in each cassette, one inked black A20 one lymph node, serially sectioned ([facility] [place]; 08/31/2017) INTRAOPERATIVE CONSULTATION Colon and small intestine, "sigmoid colon, stitch distal": - Ulcerated tumor, distal and proximal margins free. - Segment of small intestine attached to the area of the tumor. (SHA:dominique; 08/30/2017) Testing performed by [facility] at [place] [id number] [place] [address] INITIAL CPT CODE(S): A; 69548, 80967 Professional services performed by [facility], [facility] [place] [address]. Technical services performed by [facility], [address] [place] [address], [address], [place] [address]. SPECIMEN(S) RECEIVED: A.Sigmoid colon CLINICAL HISTORY: Colon mass PATIENT: ANDRY ANAYA /AGE: 1109/14/1960 (Age: 56) PATIENT #: [id number] ALT CASE #: SPECIMEN COLLECTION DATE: 08/30/2017 SPECIMEN RECEIVED DATE: 08/30/2017 [facility] - [address] [place] [address] - PHONE: [phone] * * * END OF REPORT * * *
--- NOTE | 2017-09-03 16:42 | PDOC ---
PROGRESS NOTES Subjective Subjective HPI - Adenocarcinoma of the sigmoid colon [id number] stage II, diagnosed by colonoscopy by Dr. Gerard Taylor on 08/29/2017, status post sigmoid colon resection by Dr. Brooks on 08/30/2017. ROS - no abd pain Objective Objective Vital Signs Date Time Temp Pulse Resp B/P (MAP) Pulse Ox O2 Delivery O2 Flow Rate FiO2 09/03/17 15:00 97.9 81 18 124/74 (91) 99 Room Air 97.9 09/03/17 07:11 2.0 Intake and Output 09/03/17 07:00 Intake Total 1420 ml Output Total 2350 ml Balance -930 ml Intake Oral 720 ml IV Total 700 ml Output Urine Total 1960 ml Drainage Total 390 ml Assessment Assessment Problems Medical Problems: (1) Diverticulitis Status: Acute IMPRESSION AND PLAN: 1. Adenocarcinoma of the sigmoid colon [id number] stage II, diagnosed by colonoscopy by Dr. Gerard Taylor on 08/29/2017, status post sigmoid colon resection by Dr. Brooks on 08/30/2017. INFILTRATING MODERATELY DIFFERENTIATED ADENOCARCINOMA measuring 7.5 cm in greatest dimension arising in the sigmoid colon and extending through the wall into the adjacent segment of small intestine. [address] negative. Final pathology results from the surgery reviewed, I would recommend adjuvant chemotherapy. Plan CT chest for staging w/u. 2. Microcytic anemia secondary to iron deficiency. Hemoglobin 10.2 on 08/28/2017 and 8.3 on 08/30/2017. Continue to monitor hemoglobin. Plan iron supplementation. Hb 8.3. s/p venofer infusion 09/02/17. Comment Review of Relevant I have reviewed the following items deloris (where applicable) has been applied. Labs Laboratory Tests Test 09/02/17 06:10 09/03/17 04:21 Hemoglobin 7.9 g/dL (13.0-17.5) 8.3 g/dL (13.0-17.5) Hematocrit 25.9 % (39.0-53.0) 26.8 % (39.0-53.0) Mean Corpuscular Hemoglobin Concent 31 g/dL (31-37) 31 g/dL (31-37) Magnesium Level 1.9 mg/dL (1.8-2.4) White Blood Count 5.7 x10^3/uL (4.0-11.0) Red Blood Count 4.21 x10^6/uL (4.30-5.70) Mean Corpuscular Volume 64 fL (79-100) Mean Corpuscular Hemoglobin 20 pg (25-35) Red Cell Distribution Width 18.3 % (11.5-14.5) Platelet Count 310 x10^3/uL (140-400) Neutrophils (%) (Auto) 77 % (31-73) Lymphocytes (%) (Auto) 13 % (24-48) Monocytes (%) (Auto) 5 % (0-9) Eosinophils (%) (Auto) 4 % (0-3) Basophils (%) (Auto) 0 % (0-3) Neutrophils # (Auto) 4.4 x10^3uL (1.8-7.7) Lymphocytes # (Auto) 0.8 x10^3/uL (1.0-4.8) Monocytes # (Auto) 0.3 x10^3/uL (0.0-1.1) Eosinophils # (Auto) 0.2 x10^3/uL (0.0-0.7) Basophils # (Auto) 0.0 x10^3/uL (0.0-0.2) Sodium Level 138 mmol/L (136-145) Potassium Level 3.4 mmol/L (3.5-5.1) Chloride Level 103 mmol/L (98-107) Carbon Dioxide Level 32 mmol/L (21-32) Anion Gap 3 (6-14) Blood Urea Nitrogen 8 mg/dL (8-26) Creatinine 0.6 mg/dL (0.7-1.3) Estimated GFR (Cockcroft-Gault) 138.9 BUN/Creatinine Ratio 13 (6-20) Glucose Level 103 mg/dL (70-99) Calcium Level 8.3 mg/dL (8.5-10.1) Total Bilirubin 0.2 mg/dL (0.2-1.0) Aspartate Amino Transf (AST/SGOT) 15 U/L (15-37) Alanine Aminotransferase (ALT/SGPT) 10 U/L (16-63) Alkaline Phosphatase 54 U/L (46-116) Total Protein 6.0 g/dL (6.4-8.2) Albumin 2.0 g/dL (3.4-5.0) Albumin/Globulin Ratio 0.5 (1.0-1.7) Laboratory Tests Test 09/03/17 04:21 White Blood Count 5.7 x10^3/uL (4.0-11.0) Red Blood Count 4.21 x10^6/uL (4.30-5.70) Hemoglobin 8.3 g/dL (13.0-17.5) Hematocrit 26.8 % (39.0-53.0) Mean Corpuscular Volume 64 fL (79-100) Mean Corpuscular Hemoglobin 20 pg (25-35) Mean Corpuscular Hemoglobin Concent 31 g/dL (31-37) Red Cell Distribution Width 18.3 % (11.5-14.5) Platelet Count 310 x10^3/uL (140-400) Neutrophils (%) (Auto) 77 % (31-73) Lymphocytes (%) (Auto) 13 % (24-48) Monocytes (%) (Auto) 5 % (0-9) Eosinophils (%) (Auto) 4 % (0-3) Basophils (%) (Auto) 0 % (0-3) Neutrophils # (Auto) 4.4 x10^3uL (1.8-7.7) Lymphocytes # (Auto) 0.8 x10^3/uL (1.0-4.8) Monocytes # (Auto) 0.3 x10^3/uL (0.0-1.1) Eosinophils # (Auto) 0.2 x10^3/uL (0.0-0.7) Basophils # (Auto) 0.0 x10^3/uL (0.0-0.2) Sodium Level 138 mmol/L (136-145) Potassium Level 3.4 mmol/L (3.5-5.1) Chloride Level 103 mmol/L (98-107) Carbon Dioxide Level 32 mmol/L (21-32) Anion Gap 3 (6-14) Blood Urea Nitrogen 8 mg/dL (8-26) Creatinine 0.6 mg/dL (0.7-1.3) Estimated GFR (Cockcroft-Gault) 138.9 BUN/Creatinine Ratio 13 (6-20) Glucose Level 103 mg/dL (70-99) Calcium Level 8.3 mg/dL (8.5-10.1) Total Bilirubin 0.2 mg/dL (0.2-1.0) Aspartate Amino Transf (AST/SGOT) 15 U/L (15-37) Alanine Aminotransferase (ALT/SGPT) 10 U/L (16-63) Alkaline Phosphatase 54 U/L (46-116) Total Protein 6.0 g/dL (6.4-8.2) Albumin 2.0 g/dL (3.4-5.0) Albumin/Globulin Ratio 0.5 (1.0-1.7) Microbiology 08/30/17 Anaerobic/Aerobic Culture - Final, Complete 08/30/17 Anaerobic Culture Result 1 (VINAY) - Final, Complete 08/30/17 Aerobic Culture - Final, Complete 08/30/17 Aerobic Culture Result 1 (VINAY) - Final, Complete Medications Current Medications Sodium Chloride 1,000 ml @ 1,000 mls/hr 1X ONCE IV Last administered on 07:48; Start 08/28/17 at 07:45; Stop 08/28/17 at 08:44; Status DC Ondansetron HCl (Zofran) 4 mg 1X ONCE IV Last administered on 08/28/17 07:48 ; Start 08/28/17 at 07:45; Stop 08/28/17 at 07:46; Status DC Pantoprazole Sodium (Protonix Vial) 40 mg 1X ONCE IVP Last administered on 07:50; Start 08/28/17 at 07:45; Stop 08/28/17 at 07:46; Status DC Morphine Sulfate 2 mg PRN Q15MIN PRN IV/SQ PAIN GREATER THAN 3/10; Start at 07:45; Stop 08/29/17 at 07:44; Status DC Ondansetron HCl (Zofran) 4 mg PRN Q8HRS PRN IV NAUSEA/VOMITING; Start 08/28/17 at 10:00; Stop 08/29/17 at 09:59; Status DC Morphine Sulfate 2 mg PRN Q2HR PRN IV PAIN; Start 08/28/17 at 10:00; Stop 08/29 at 09:59; Status DC Sodium Chloride 1,000 ml @ 125 mls/hr Q8H IV Last administered on 08/29/17 02 :05; Start 08/28/17 at 09:49; Stop 08/29/17 at 09:48; Status DC Ciprofloxacin/ Dextrose 200 ml @ 200 mls/hr 1X ONCE IV Last administered on 08/28/17 10:24; Start 08/28/17 at 10:00; Stop 08/28/17 at 10:59; Status DC Metronidazole 100 ml @ 100 mls/hr Q8HRS IV Last administered on 09/03/17 13: 40; Start 08/28/17 at 11:00 Metronidazole 100 ml @ 100 mls/hr 1X ONCE IV ; Start 08/28/17 at 10:00; Stop 08/28/17 at 10:59; Status Cancel Ciprofloxacin/ Dextrose 200 ml @ 200 mls/hr Q12HR IV Last administered on 08:34; Start 08/28/17 at 21:00 Famotidine (Pepcid Vial) 20 mg BID IVP Last administered on 09/03/17 08:33; Start 08/28/17 at 12:00 Polyethylene Glycol (miraLAX Powder BULK BOTTLE) 238 gm 1X ONCE PO Last administered on 08/28/17 17:26; Start 08/28/17 at 16:00; Stop 08/28/17 at 16:01 ; Status DC Bisacodyl (Dulcolax Tab) 10 mg 1X ONCE PO Last administered on 08/28/17 14:56 ; Start 08/28/17 at 15:00; Stop 08/28/17 at 15:01; Status DC Lactobacillus Rhamnosus (Culturelle) 1 cap BID PO Last administered on 08:34; Start 08/28/17 at 21:00 Fentanyl Citrate (Fentanyl 2ml Vial) 25 mcg PRN Q5MIN PRN IV MILD PAIN; Start 08/29/17 at 07:00; Stop 08/29/17 at 18:00; Status DC Fentanyl Citrate (Fentanyl 2ml Vial) 50 mcg PRN Q5MIN PRN IV MODERATE PAIN; Start 08/29/17 at 07:00; Stop 08/29/17 at 18:00; Status DC Morphine Sulfate 1 mg PRN Q10MIN PRN IV SEVERE PAIN; Start 08/29/17 at 07:00; Stop 08/29/17 at 18:00; Status DC Ringer's Solution 1,000 ml @ 30 mls/hr Q24H IV Last administered on 11/9/17at 13:58; Start 08/29/17 at 07:00; Stop 08/29/17 at 18:59; Status DC Lidocaine HCl (Xylocaine-Mpf 1% Vial) 2 ml PRN 1X PRN ID IV START; Start at 07:00; Stop 08/29/17 at 18:00; Status DC Hydromorphone HCl (Dilaudid) 0.5 mg PRN Q10MIN PRN IV SEV PAIN, Second choice; Start 08/29/17 at 07:00; Stop 08/29/17 at 18:00; Status DC Prochlorperazine Edisylate (Compazine) 5 mg PACU PRN PRN IV NAUSEA, MRX1; Start 08/29/17 at 07:00; Stop 08/29/17 at 18:00; Status DC Nicotine (Nicoderm Cq 21mg) 1 patch PRN DAILY PRN TD SMOKING CESSATION; Start 08/28/17 at 16:00 Nicotine Polacrilex (Nicorette Gum) 1 each PRN Q1HR PRN BC SMOKING CESSATION Last administered on 08/29/17t 08:37; Start 08/28/17 at 16:00 Midazolam HCl (Versed) 2 mg PRN 1X PRN IV PRIOR TO PROCEDURE; Start 08/29/17 at 10:45; Stop 08/30/17 at 10:44; Status DC Fentanyl Citrate (Fentanyl 2ml Vial) 25 mcg PRN Q5MIN PRN IV X 2 DOSES FOR PAIN ; Start 08/29/17 at 10:45; Stop 08/30/17 at 10:44; Status DC Fentanyl Citrate (Fentanyl 2ml Vial) 50 mcg PRN Q5MIN PRN IV X 2 DOSES FOR PAIN ; Start 08/29/17 at 10:45; Stop 08/30/17 at 10:44; Status DC Ringer's Solution 1,000 ml @ 125 mls/hr Q8H IV ; Start 08/29/17 at 10:32; Stop 08/29/17 at 20:00; Status DC Lidocaine HCl (Xylocaine-Mpf 1% Vial) 2 ml 1X PRN PRN ID IV START; Start at 10:45; Stop 08/30/17 at 10:44; Status DC Propofol 20 ml @ As Directed STK-MED ONCE IV ; Start 08/29/17 at 14:27; Stop at 14:28; Status DC Lidocaine HCl (Lidocaine Pf 2% Vial) 5 ml STK-MED ONCE .ROUTE ; Start 08/29/17 at 14:27; Stop 08/29/17 at 14:28; Status DC Propofol 20 ml @ As Directed STK-MED ONCE IV ; Start 08/29/17 at 14:28; Stop at 14:29; Status DC Propofol 20 ml @ As Directed STK-MED ONCE IV ; Start 08/30/17 at 10:26; Stop 08/30/17 at 10:27; Status DC Lidocaine HCl (Lidocaine Pf 2% Vial) 5 ml STK-MED ONCE .ROUTE ; Start 08/30/17 at 10:26; Stop 08/30/17 at 10:27; Status DC Dexamethasone Sodium Phosphate (Decadron) 20 mg STK-MED ONCE .ROUTE ; Start 08/06 at 10:26; Stop 08/30/17 at 10:27; Status DC Ondansetron HCl (Zofran) 4 mg STK-MED ONCE .ROUTE ; Start 08/30/17 at 10:26; Stop 08/30/17 at 10:27; Status DC Midazolam HCl (Versed) 2 mg STK-MED ONCE .ROUTE ; Start 08/30/17 at 10:27; Stop 08/30/17 at 10:28; Status DC Fentanyl Citrate (Fentanyl 5ml Vial) 250 mcg STK-MED ONCE .ROUTE ; Start at 10:27; Stop 08/30/17 at 10:28; Status DC Succinylcholine Chloride (Anectine) 200 mg STK-MED ONCE .ROUTE ; Start at 10:28; Stop 08/30/17 at 10:29; Status DC Rocuronium [place] (Zemuron) 50 mg STK-MED ONCE .ROUTE ; Start 08/30/17 at 10: 28; Stop 08/30/17 at 10:29; Status DC Cefoxitin Sodium 2 gm/Dextrose 100 ml @ 200 mls/hr 1X ONCE IV ; Start at 10:45; Stop 08/30/17 at 11:14; Status UNV Cefoxitin Sodium 100 ml @ 200 mls/hr ONCE ONCE IV Last administered on t 11:10; Start 08/30/17 at 11:00; Stop 08/30/17 at 11:29; Status DC Rocuronium [place] (Zemuron) 50 mg STK-MED ONCE .ROUTE ; Start 08/30/17 at 11: 20; Stop 08/30/17 at 11:21; Status DC Ephedrine Sulfate (Akovaz) 50 mg STK-MED ONCE .ROUTE ; Start 08/30/17 at 11:23 ; Stop 08/30/17 at 11:24; Status DC Ringer's Solution 1,000 ml @ 30 mls/hr Q24H IV Last administered on t 02:36; Start 08/30/17 at 11:45; Stop 09/01/17 at 19:38; Status DC Neostigmine Methylsulfate (Bloxiverz) 10 mg STK-MED ONCE .ROUTE ; Start at 12:54; Stop 08/30/17 at 12:55; Status DC Glycopyrrolate (Robinul) 1 mg STK-MED ONCE .ROUTE ; Start 08/30/17 at 12:54; Stop 08/30/17 at 12:55; Status DC Sevoflurane (Ultane) 90 ml STK-MED ONCE IH ; Start 08/30/17 at 13:00; Stop 08/06 at 13:01; Status DC Morphine Sulfate 10 mg STK-MED ONCE .ROUTE ; Start 08/30/17 at 13:35; Stop 08/06 at 13:36; Status DC Phenylephrine HCl (Kota-Synephrine Inj) 10 mg STK-MED ONCE .ROUTE ; Start at 14:18; Stop 08/30/17 at 14:19; Status DC Sodium Chloride (Sodium Chloride) 50 ml STK-MED ONCE IJ ; Start 08/30/17 at 14: 18; Stop 08/30/17 at 14:19; Status DC Morphine Sulfate 2 mg STK-MED ONCE .ROUTE ; Start 08/30/17 at 15:07; Stop 08/06 at 15:08; Status DC Fentanyl Citrate (Fentanyl 2ml Vial) 100 mcg STK-MED ONCE .ROUTE ; Start at 15:08; Stop 08/30/17 at 15:09; Status DC Ondansetron HCl (Zofran) 4 mg PRN Q6HRS PRN IV NAUSEA/VOMITING; Start at 15:15; Stop 08/31/17 at 15:14; Status DC Fentanyl Citrate (Fentanyl 2ml Vial) 25 mcg PRN Q5MIN PRN IV MILD PAIN Last administered on 08/30/17 16:07; Start 08/30/17 at 15:15; Stop 08/31/17 at 15 :14; Status DC Fentanyl Citrate (Fentanyl 2ml Vial) 50 mcg PRN Q5MIN PRN IV MODERATE PAIN Last administered on 08/30/17 16:20; Start 08/30/17 at 15:15; Stop 08/31/17 at 15:14; Status DC Morphine Sulfate 1 mg PRN Q10MIN PRN IV SEVERE PAIN Last administered on 15:56; Start 08/30/17 at 15:15; Stop 08/31/17 at 15:14; Status DC Ringer's Solution 1,000 ml @ 0 mls/hr Q0M IV ; Start 08/30/17 at 15:11; Stop 08/31/17 at 03:10; Status DC Lidocaine HCl (Xylocaine-Mpf 1% Vial) 2 ml PRN 1X PRN ID PRIOR TO IV START; Start 08/30/17 at 15:15; Stop 08/31/17 at 15:14; Status DC Hydromorphone HCl (Dilaudid) 0.5 mg PRN Q10MIN PRN IV SEV PAIN, Second choice; Start 08/30/17 at 15:15; Stop 08/31/17 at 15:14; Status DC Prochlorperazine Edisylate (Compazine) 5 mg PACU PRN PRN IV NAUSEA, MRX1; Start 08/30/17 at 15:15; Stop 08/31/17 at 15:14; Status DC Ondansetron HCl (Zofran) 4 mg PRN Q6HRS PRN IV NAUSEA/VOMITING; Start at 15:30; Stop 08/31/17 at 15:29; Status UNV Fentanyl Citrate (Fentanyl 2ml Vial) 25 mcg PRN Q5MIN PRN IV MILD PAIN; Start 08/30/17 at 15:30; Stop 08/31/17 at 15:29; Status UNV Fentanyl Citrate (Fentanyl 2ml Vial) 50 mcg PRN Q5MIN PRN IV MODERATE PAIN; Start 08/30/17 at 15:30; Stop 08/31/17 at 15:29; Status UNV Morphine Sulfate 1 mg PRN Q10MIN PRN IV SEVERE PAIN; Start 08/30/17 at 15:30; Stop 08/31/17 at 15:29; Status UNV Ringer's Solution 1,000 ml @ 0 mls/hr Q0M IV ; Start 08/30/17 at 15:16; Stop 08/31/17 at 03:15; Status UNV Lidocaine HCl (Xylocaine-Mpf 1% Vial) 2 ml PRN 1X PRN ID PRIOR TO IV START; Start 08/30/17 at 15:30; Stop 08/31/17 at 15:29; Status UNV Hydromorphone HCl (Dilaudid) 0.5 mg PRN Q10MIN PRN IV SEV PAIN, Second choice; Start 08/30/17 at 15:30; Stop 08/31/17 at 15:29; Status UNV Prochlorperazine Edisylate (Compazine) 5 mg PACU PRN PRN IV NAUSEA, MRX1; Start 08/30/17 at 15:30; Stop 08/31/17 at 15:29; Status UNV Diphenhydramine HCl (Benadryl) 25 mg PRN Q6HRS PRN IV ITCHING Last administered on 09/02/17 20:55; Start 08/30/17 at 15:30 Enoxaparin Sodium (Lovenox 40mg Syringe) 40 mg Q24H SQ Last administered on 08:34; Start 08/31/17 at 09:00 Sodium Chloride (Normal Saline Flush) 3 ml QSHIFT PRN IV AFTER MEDS AND BLOOD DRAWS; Start 08/30/17 at 15:30 Potassium Chloride/Sodium Chloride 1,000 ml @ 100 mls/hr Q10H IV Last administered on 08/31/17 04:10; Start 08/30/17 at 15:27; Stop 08/31/17 at 11 :04; Status DC Hydromorphone HCl 30 ml @ 0 mls/hr CONT PRN PRN IV PROTOCOL Last administered on 08/31/17 05:32; Start 08/30/17 at 15:30; Stop 09/02/17 at 11:20; Status DC Ondansetron HCl (Zofran) 4 mg PRN Q6HRS PRN IV NAUESA, 1ST CHOICE Last administered on 09/02/17 16:06; Start 08/30/17 at 15:30 Throat Lozenges (Cepacol Sore Throat Lozenge) 1 michael PRN Q2HRS PRN PO SORE THROAT Last administered on 08/31/17 11:56; Start 08/30/17 at 15:30 Throat Lozenges (Chloraseptic) 1 spray PRN Q2HR PRN PO SORE THROAT; Start 08/06 at 15:30 Fentanyl Citrate (Fentanyl 2ml Vial) 100 mcg STK-MED ONCE .ROUTE ; Start at 16:03; Stop 08/30/17 at 16:04; Status DC Sodium Chloride 500 ml @ 100 mls/hr 1X ONCE IV Last administered on 11:53; Start 08/31/17 at 11:30; Stop 08/31/17 at 16:29; Status DC Magnesium Sulfate/ Dextrose 50 ml @ 25 mls/hr 1X ONCE IV Last administered on 08/31/17 12:18; Start 08/31/17 at 11:45; Stop 08/31/17 at 13:44; Status DC Magnesium Sulfate/ Dextrose 50 ml @ 25 mls/hr 1X ONCE IV Last administered on 09/01/17 10:22; Start 09/01/17 at 08:45; Stop 09/01/17 at 10:44; Status DC Amino Acids/ Glycerin/ Electrolytes 1,000 ml @ 80 mls/hr [id number] IV Last administered on 09/03/17 13:40; Start 09/01/17 at 10:30 Cefoxitin Sodium (Mefoxin 1gm Ivpb For Omni) 1 gm STK-MED ONCE IV ; Start 08/30 at 13:46; Stop 09/02/17 at 08:40; Status DC Iron Sucrose 500 mg/Sodium Chloride 275 ml @ 78.571 mls/ hr 1X ONCE IV Last administered on 09/02/17 11:35; Start 09/02/17 at 10:30; Stop 09/02/17 at 13 :59; Status DC Hydromorphone HCl (Dilaudid) 0.3 mg PRN Q4HRS PRN IVP PAIN; Start 09/02/17 at 11:30 Iron Sucrose 500 mg/Sodium Chloride 275 ml @ 78.571 mls/ hr 1X ONCE IV ; Start 09/02/17 at 12:15; Stop 09/02/17 at 15:44; Status UNV Oxycodone/ Acetaminophen (Percocet 5/325) 1 tab PRN Q4HRS PRN PO PAIN Last administered on 09/02/17t 20:55; Start 09/02/17 at 13:15 Potassium Chloride (Klor-Con) 20 meq 1X ONCE PO Last administered on 09:01; Start 09/03/17 at 08:45; Stop 09/03/17 at 08:46; Status DC Vitals/I & O Vital Sign - Last 24 Hours 09/02/17 09/02/17 09/02/17 09/02/17 19:00 20:00 20:55 21:55 Temp 98.1 98.1 Pulse 82 Resp 18 18 B/P (MAP) 134/84 (101) Pulse Ox 96 96 96 O2 Delivery Room Air Nasal Cannula Room Air Nasal Cannula O2 Flow Rate 2.0 2.0 2.0 09/02/17 09/03/17 09/03/17 09/03/17 23:19 03:00 07:11 07:30 Temp 97.9 97.9 97.7 97.9 97.9 97.7 Pulse 81 78 94 Resp 16 18 18 B/P (MAP) 123/83 (96) 122/77 (92) 112/76 (88) Pulse Ox 97 98 98 O2 Delivery Room Air Room Air Nasal Cannula Room Air O2 Flow Rate 2.0 09/03/17 09/03/17 10:30 15:00 Temp 97.7 97.9 97.7 97.9 Pulse 77 81 Resp 18 18 B/P (MAP) 125/78 (94) 124/74 (91) Pulse Ox 99 99 O2 Delivery Room Air Room Air Intake and Output 09/02/17 09/02/17 09/03/17 15:00 23:00 07:00 Intake Total 330 ml 640 ml 450 ml Output Total 930 ml 420 ml 1000 ml Balance -600 ml 220 ml -550 ml Nutrition Consultation Dietary Evaluation: Recommendations by RD: PPN/TPN, Add supplement feedings Comments: send boost breeze while on clear liquids ppn until diet adv/ tolerated Expected Outcomes/Goals: to meet > 75% est nutr needs Malnutrition Findings: Food and Nutrition Intake (Sev: <50% est energy req 5days Weight Status: Appropriate FARHAN BARTLETT MD Sep 03, 2017 16:41
[2017-09-03 19:00] VITALS: BP 143/80
[2017-09-03] MEDS: oxyCODONE/APAP 5/325 1 TAB TABLET PO PRN (19:45)
[2017-09-03 23:00] VITALS: BP 120/81
[2017-09-04] MEDS: AMINO AC 3%/ELECTROLYTE/GLYCER 1,000 ML IV SCH ×2 (02:37→17:48)
[2017-09-04 06:24] LABS: CALCIUM 8.3 mg/dL (8.5-10.1); CREATININE 0.6 mg/dL (0.7-1.3); GFR 138.9; POTASSIUM 3.7 mmol/L (3.5-5.1)
[2017-09-04 06:27] LABS: BASO % 0 % (0-3); EOS % 5 % (0-3); HEMATOCRIT 26.6 % (39.0-53.0); HEMOGLOBIN 8.3 g/dL (13.0-17.5); LYMPH # 0.8 x10^3/uL (1.0-4.8); LYMPH % 14 % (24-48); MEAN CORPUSCULAR HEMOGLOBIN 20 pg (25-35); MEAN CORPUSCULAR HGB CONC 31 g/dL (31-37); MEAN CORPUSCULAR VOLUME 64 fL (79-100); MONO % 6 % (0-9); NEUT % 76 % (31-73); PLATELET COUNT 349 x10^3/uL (140-400); RED BLOOD COUNT 4.18 x10^6/uL (4.30-5.70); RED CELL DISTRIBUTION WIDTH 18.2 % (11.5-14.5); WHITE BLOOD COUNT 5.8 x10^3/uL (4.0-11.0)
[2017-09-04 07:00] VITALS: BP 124/79
[2017-09-04] MEDS: CIPROFLOXACIN 400MG PREMIX 200 ML IV SCH ×2 (08:35→21:51)
[2017-09-04] MEDS: ENOXAPARIN 40 MG/0.4 ML SYRINGE. SQ SCH (08:36)
[2017-09-04] MEDS: LACTOBACILLUS RHAMNOSUS GG 1 CAPSULE. PO SCH ×2 (08:37→20:35)
[2017-09-04] MEDS: FAMOTIDINE 20 MG/2 ML VIAL IVP SCH (08:37)
--- NOTE | 2017-09-04 10:54 | PDOC ---
SURGICAL PROGRESS NOTE Subjective Pt with c/o incisional pain, but controlled, no N/V, no flatus Vital Signs Vital Signs Date Time Temp Pulse Resp B/P (MAP) Pulse Ox O2 Delivery O2 Flow Rate FiO2 09/04/17 08:00 Room Air 2.0 09/04/17 07:00 98.6 86 20 124/79 (94) 96 98.6 I&O Intake and Output 09/04/17 07:00 Intake Total 3630 ml Output Total 1890 ml Balance 1740 ml Intake Oral 830 ml IV Total 2800 ml Output Urine Total 1550 ml Drainage Total 340 ml General: Alert, Oriented X3, Cooperative, No acute distress Abdomen: Soft, No tenderness, Other (incision c/d/i) Labs Laboratory Tests Test 09/03/17 04:21 09/04/17 05:25 White Blood Count 5.7 x10^3/uL (4.0-11.0) 5.8 x10^3/uL (4.0-11.0) Red Blood Count 4.21 x10^6/uL (4.30-5.70) 4.18 x10^6/uL (4.30-5.70) Hemoglobin 8.3 g/dL (13.0-17.5) 8.3 g/dL (13.0-17.5) Hematocrit 26.8 % (39.0-53.0) 26.6 % (39.0-53.0) Mean Corpuscular Volume 64 fL (79-100) 64 fL (79-100) Mean Corpuscular Hemoglobin 20 pg (25-35) 20 pg (25-35) Mean Corpuscular Hemoglobin Concent 31 g/dL (31-37) 31 g/dL (31-37) Red Cell Distribution Width 18.3 % (11.5-14.5) 18.2 % (11.5-14.5) Platelet Count 310 x10^3/uL (140-400) 349 x10^3/uL (140-400) Neutrophils (%) (Auto) 77 % (31-73) 76 % (31-73) Lymphocytes (%) (Auto) 13 % (24-48) 14 % (24-48) Monocytes (%) (Auto) 5 % (0-9) 6 % (0-9) Eosinophils (%) (Auto) 4 % (0-3) 5 % (0-3) Basophils (%) (Auto) 0 % (0-3) 0 % (0-3) Neutrophils # (Auto) 4.4 x10^3uL (1.8-7.7) 4.3 x10^3uL (1.8-7.7) Lymphocytes # (Auto) 0.8 x10^3/uL (1.0-4.8) 0.8 x10^3/uL (1.0-4.8) Monocytes # (Auto) 0.3 x10^3/uL (0.0-1.1) 0.3 x10^3/uL (0.0-1.1) Eosinophils # (Auto) 0.2 x10^3/uL (0.0-0.7) 0.3 x10^3/uL (0.0-0.7) Basophils # (Auto) 0.0 x10^3/uL (0.0-0.2) 0.0 x10^3/uL (0.0-0.2) Sodium Level 138 mmol/L (136-145) 135 mmol/L (136-145) Potassium Level 3.4 mmol/L (3.5-5.1) 3.7 mmol/L (3.5-5.1) Chloride Level 103 mmol/L (98-107) 104 mmol/L (98-107) Carbon Dioxide Level 32 mmol/L (21-32) 28 mmol/L (21-32) Anion Gap 3 (6-14) 3 (6-14) Blood Urea Nitrogen 8 mg/dL (8-26) 9 mg/dL (8-26) Creatinine 0.6 mg/dL (0.7-1.3) 0.6 mg/dL (0.7-1.3) Estimated GFR (Cockcroft-Gault) 138.9 138.9 BUN/Creatinine Ratio 13 (6-20) Glucose Level 103 mg/dL (70-99) 101 mg/dL (70-99) Calcium Level 8.3 mg/dL (8.5-10.1) 8.3 mg/dL (8.5-10.1) Total Bilirubin 0.2 mg/dL (0.2-1.0) Aspartate Amino Transf (AST/SGOT) 15 U/L (15-37) Alanine Aminotransferase (ALT/SGPT) 10 U/L (16-63) Alkaline Phosphatase 54 U/L (46-116) Total Protein 6.0 g/dL (6.4-8.2) Albumin 2.0 g/dL (3.4-5.0) Albumin/Globulin Ratio 0.5 (1.0-1.7) Laboratory Tests Test 09/04/17 05:25 White Blood Count 5.8 x10^3/uL (4.0-11.0) Red Blood Count 4.18 x10^6/uL (4.30-5.70) Hemoglobin 8.3 g/dL (13.0-17.5) Hematocrit 26.6 % (39.0-53.0) Mean Corpuscular Volume 64 fL (79-100) Mean Corpuscular Hemoglobin 20 pg (25-35) Mean Corpuscular Hemoglobin Concent 31 g/dL (31-37) Red Cell Distribution Width 18.2 % (11.5-14.5) Platelet Count 349 x10^3/uL (140-400) Neutrophils (%) (Auto) 76 % (31-73) Lymphocytes (%) (Auto) 14 % (24-48) Monocytes (%) (Auto) 6 % (0-9) Eosinophils (%) (Auto) 5 % (0-3) Basophils (%) (Auto) 0 % (0-3) Neutrophils # (Auto) 4.3 x10^3uL (1.8-7.7) Lymphocytes # (Auto) 0.8 x10^3/uL (1.0-4.8) Monocytes # (Auto) 0.3 x10^3/uL (0.0-1.1) Eosinophils # (Auto) 0.3 x10^3/uL (0.0-0.7) Basophils # (Auto) 0.0 x10^3/uL (0.0-0.2) Sodium Level 135 mmol/L (136-145) Potassium Level 3.7 mmol/L (3.5-5.1) Chloride Level 104 mmol/L (98-107) Carbon Dioxide Level 28 mmol/L (21-32) Anion Gap 3 (6-14) Blood Urea Nitrogen 9 mg/dL (8-26) Creatinine 0.6 mg/dL (0.7-1.3) Estimated GFR (Cockcroft-Gault) 138.9 Glucose Level 101 mg/dL (70-99) Calcium Level 8.3 mg/dL (8.5-10.1) Problem List Problems Medical Problems: (1) Diverticulitis Status: Acute Assessment/Plan s/p sigmoid resection await bowel fxn cont supportive care Problems: JHONATHAN CHEATHAM MD Sep 04, 2017 10:54
[2017-09-04 11:00] VITALS: BP 111/68
[2017-09-04] MEDS ORDERED: FERROUS SULFATE 325 MG TABLET. PO SCH (12:00)
[2017-09-04] MEDS ORDERED: IRON SUCROSE COMPLEX 200 MG in IV NORMAL SALINE 100ML 100 ML IV SCH (12:00)
[2017-09-04] MEDS: CYANOCOBALAMIN (VITAMIN B-12) 1,000 MCG TABLET. PO SCH (12:04)
[2017-09-04] MEDS: IRON SUCROSE COMPLEX 200 MG in TOTAL VOLUME SYRINGE 0 ML IV SCH (13:37)
--- NOTE | 2017-09-04 13:58 | PDOC ---
Subjective: Subjective: Pt and sister report his vision has changed since admission - sees double, hard to read words on TV (less so when wearing glasses). Tolerating clears, belching. No flatus/stool, no n/v. Objective: Vital Signs: Vital Signs Date Time Temp Pulse Resp B/P (MAP) Pulse Ox O2 Delivery O2 Flow Rate FiO2 09/04/17 11:00 97.5 84 20 111/68 (82) 98 Room Air 97.5 09/04/17 08:00 2.0 Labs: Laboratory Tests Test 09/04/17 05:25 White Blood Count 5.8 x10^3/uL Red Blood Count 4.18 x10^6/uL Hemoglobin 8.3 g/dL Hematocrit 26.6 % Mean Corpuscular Volume 64 fL Mean Corpuscular Hemoglobin 20 pg Mean Corpuscular Hemoglobin Concent 31 g/dL Red Cell Distribution Width 18.2 % Platelet Count 349 x10^3/uL Neutrophils (%) (Auto) 76 % Lymphocytes (%) (Auto) 14 % Monocytes (%) (Auto) 6 % Eosinophils (%) (Auto) 5 % Basophils (%) (Auto) 0 % Neutrophils # (Auto) 4.3 x10^3uL Lymphocytes # (Auto) 0.8 x10^3/uL Monocytes # (Auto) 0.3 x10^3/uL Eosinophils # (Auto) 0.3 x10^3/uL Basophils # (Auto) 0.0 x10^3/uL Sodium Level 135 mmol/L Potassium Level 3.7 mmol/L Chloride Level 104 mmol/L Carbon Dioxide Level 28 mmol/L Anion Gap 3 Blood Urea Nitrogen 9 mg/dL Creatinine 0.6 mg/dL Estimated GFR (Cockcroft-Gault) 138.9 Glucose Level 101 mg/dL Calcium Level 8.3 mg/dL Imaging: PATHOLOGY REPORT * * * * * * * * FINAL DIAGNOSIS: Segment of small intestine and colon "sigmoid colon stitches distal, segmental resection": - INFILTRATING MODERATELY DIFFERENTIATED ADENOCARCINOMA measuring 7.5 cm in greatest dimension arising in the sigmoid colon and extending through the wall into the adjacent segment of small intestine. - The proximal and distal resection margins are free. - Lymph nodes (21 reactive changes negative for malignancy). PE: GEN: NAD LUNGS: CTAB HEART: RRR ABD: BS+, sfot NEURO/PSYCH: A & O 3 A/P: Sigmoid cancer s/p resection -- Discussed vision concerns w/ RN, will defer to primary. Diet per surgery. Will stop IV acid-quality rn - continue PO, he did c/o heartburn yesterday. ALEXIS ACEVEDO Sep 04, 2017 13:58
[2017-09-04] MEDS ORDERED: CALCIUM CARBONATE 500 MG TAB.CHEW PO PRN (14:00)
--- NOTE | 2017-09-04 14:03 | PDOC ---
PROGRESS NOTES Chief Complaint Chief Complaint melena, hematochezia ASSESSMENT AND PLAN: Sigmoid mass s/p resection 08/30. , path colon Ca Microcytic anemia: severe. iron deficiency Hypomagnesemia Hypokalemia plan: fu with gi, sx cont clear liquid, encourage ambulate PPN venofer daily x5 ppi po dvt ppx pain control prn KUB fu with onco as outpt for chemo History of Present Illness History of Present Illness ROS: no fever, chills, sob or chest pain mild abd pain no Flatus or BM post op 08/30 clear liquid diet, ppn still significant CHRIS drain at 340cc 24h Vitals Vitals Vital Signs Date Time Temp Pulse Resp B/P (MAP) Pulse Ox O2 Delivery O2 Flow Rate FiO2 09/04/17 11:00 97.5 84 20 111/68 (82) 98 Room Air 97.5 09/04/17 08:00 2.0 Physical Exam General: Alert, Oriented X3, Cooperative, No acute distress Heart: Regular rate, Normal S1, Normal S2, No murmurs Lungs: Clear Abdomen: Soft, No tenderness, Other (incision c/d/i, has 1 CHRIS drainage with sangeous drain, some BS) Extremities: No edema Skin: No rashes Labs LABS Laboratory Tests Test 09/04/17 05:25 White Blood Count 5.8 x10^3/uL (4.0-11.0) Red Blood Count 4.18 x10^6/uL (4.30-5.70) Hemoglobin 8.3 g/dL (13.0-17.5) Hematocrit 26.6 % (39.0-53.0) Mean Corpuscular Volume 64 fL (79-100) Mean Corpuscular Hemoglobin 20 pg (25-35) Mean Corpuscular Hemoglobin Concent 31 g/dL (31-37) Red Cell Distribution Width 18.2 % (11.5-14.5) Platelet Count 349 x10^3/uL (140-400) Neutrophils (%) (Auto) 76 % (31-73) Lymphocytes (%) (Auto) 14 % (24-48) Monocytes (%) (Auto) 6 % (0-9) Eosinophils (%) (Auto) 5 % (0-3) Basophils (%) (Auto) 0 % (0-3) Neutrophils # (Auto) 4.3 x10^3uL (1.8-7.7) Lymphocytes # (Auto) 0.8 x10^3/uL (1.0-4.8) Monocytes # (Auto) 0.3 x10^3/uL (0.0-1.1) Eosinophils # (Auto) 0.3 x10^3/uL (0.0-0.7) Basophils # (Auto) 0.0 x10^3/uL (0.0-0.2) Sodium Level 135 mmol/L (136-145) Potassium Level 3.7 mmol/L (3.5-5.1) Chloride Level 104 mmol/L (98-107) Carbon Dioxide Level 28 mmol/L (21-32) Anion Gap 3 (6-14) Blood Urea Nitrogen 9 mg/dL (8-26) Creatinine 0.6 mg/dL (0.7-1.3) Estimated GFR (Cockcroft-Gault) 138.9 Glucose Level 101 mg/dL (70-99) Calcium Level 8.3 mg/dL (8.5-10.1) Assessment and Plan Assessmemt and Plan Problems Medical Problems: (1) Diverticulitis Status: Acute Problems: Comment Review of Relevant I have reviewed the following items deloris (where applicable) has been applied. Labs Laboratory Tests Test 09/03/17 04:21 09/04/17 05:25 White Blood Count 5.7 x10^3/uL (4.0-11.0) 5.8 x10^3/uL (4.0-11.0) Red Blood Count 4.21 x10^6/uL (4.30-5.70) 4.18 x10^6/uL (4.30-5.70) Hemoglobin 8.3 g/dL (13.0-17.5) 8.3 g/dL (13.0-17.5) Hematocrit 26.8 % (39.0-53.0) 26.6 % (39.0-53.0) Mean Corpuscular Volume 64 fL (79-100) 64 fL (79-100) Mean Corpuscular Hemoglobin 20 pg (25-35) 20 pg (25-35) Mean Corpuscular Hemoglobin Concent 31 g/dL (31-37) 31 g/dL (31-37) Red Cell Distribution Width 18.3 % (11.5-14.5) 18.2 % (11.5-14.5) Platelet Count 310 x10^3/uL (140-400) 349 x10^3/uL (140-400) Neutrophils (%) (Auto) 77 % (31-73) 76 % (31-73) Lymphocytes (%) (Auto) 13 % (24-48) 14 % (24-48) Monocytes (%) (Auto) 5 % (0-9) 6 % (0-9) Eosinophils (%) (Auto) 4 % (0-3) 5 % (0-3) Basophils (%) (Auto) 0 % (0-3) 0 % (0-3) Neutrophils # (Auto) 4.4 x10^3uL (1.8-7.7) 4.3 x10^3uL (1.8-7.7) Lymphocytes # (Auto) 0.8 x10^3/uL (1.0-4.8) 0.8 x10^3/uL (1.0-4.8) Monocytes # (Auto) 0.3 x10^3/uL (0.0-1.1) 0.3 x10^3/uL (0.0-1.1) Eosinophils # (Auto) 0.2 x10^3/uL (0.0-0.7) 0.3 x10^3/uL (0.0-0.7) Basophils # (Auto) 0.0 x10^3/uL (0.0-0.2) 0.0 x10^3/uL (0.0-0.2) Sodium Level 138 mmol/L (136-145) 135 mmol/L (136-145) Potassium Level 3.4 mmol/L (3.5-5.1) 3.7 mmol/L (3.5-5.1) Chloride Level 103 mmol/L (98-107) 104 mmol/L (98-107) Carbon Dioxide Level 32 mmol/L (21-32) 28 mmol/L (21-32) Anion Gap 3 (6-14) 3 (6-14) Blood Urea Nitrogen 8 mg/dL (8-26) 9 mg/dL (8-26) Creatinine 0.6 mg/dL (0.7-1.3) 0.6 mg/dL (0.7-1.3) Estimated GFR (Cockcroft-Gault) 138.9 138.9 BUN/Creatinine Ratio 13 (6-20) Glucose Level 103 mg/dL (70-99) 101 mg/dL (70-99) Calcium Level 8.3 mg/dL (8.5-10.1) 8.3 mg/dL (8.5-10.1) Total Bilirubin 0.2 mg/dL (0.2-1.0) Aspartate Amino Transf (AST/SGOT) 15 U/L (15-37) Alanine Aminotransferase (ALT/SGPT) 10 U/L (16-63) Alkaline Phosphatase 54 U/L (46-116) Total Protein 6.0 g/dL (6.4-8.2) Albumin 2.0 g/dL (3.4-5.0) Albumin/Globulin Ratio 0.5 (1.0-1.7) Laboratory Tests Test 09/04/17 05:25 White Blood Count 5.8 x10^3/uL (4.0-11.0) Red Blood Count 4.18 x10^6/uL (4.30-5.70) Hemoglobin 8.3 g/dL (13.0-17.5) Hematocrit 26.6 % (39.0-53.0) Mean Corpuscular Volume 64 fL (79-100) Mean Corpuscular Hemoglobin 20 pg (25-35) Mean Corpuscular Hemoglobin Concent 31 g/dL (31-37) Red Cell Distribution Width 18.2 % (11.5-14.5) Platelet Count 349 x10^3/uL (140-400) Neutrophils (%) (Auto) 76 % (31-73) Lymphocytes (%) (Auto) 14 % (24-48) Monocytes (%) (Auto) 6 % (0-9) Eosinophils (%) (Auto) 5 % (0-3) Basophils (%) (Auto) 0 % (0-3) Neutrophils # (Auto) 4.3 x10^3uL (1.8-7.7) Lymphocytes # (Auto) 0.8 x10^3/uL (1.0-4.8) Monocytes # (Auto) 0.3 x10^3/uL (0.0-1.1) Eosinophils # (Auto) 0.3 x10^3/uL (0.0-0.7) Basophils # (Auto) 0.0 x10^3/uL (0.0-0.2) Sodium Level 135 mmol/L (136-145) Potassium Level 3.7 mmol/L (3.5-5.1) Chloride Level 104 mmol/L (98-107) Carbon Dioxide Level 28 mmol/L (21-32) Anion Gap 3 (6-14) Blood Urea Nitrogen 9 mg/dL (8-26) Creatinine 0.6 mg/dL (0.7-1.3) Estimated GFR (Cockcroft-Gault) 138.9 Glucose Level 101 mg/dL (70-99) Calcium Level 8.3 mg/dL (8.5-10.1) Microbiology 08/30/17 Anaerobic/Aerobic Culture - Final, Complete 08/30/17 Anaerobic Culture Result 1 (VINAY) - Final, Complete 08/30/17 Aerobic Culture - Final, Complete 08/30/17 Aerobic Culture Result 1 (VINAY) - Final, Complete Medications Current Medications Sodium Chloride 1,000 ml @ 1,000 mls/hr 1X ONCE IV Last administered on 07:48; Start 08/28/17 at 07:45; Stop 08/28/17 at 08:44; Status DC Ondansetron HCl (Zofran) 4 mg 1X ONCE IV Last administered on 08/28/17 07:48 ; Start 08/28/17 at 07:45; Stop 08/28/17 at 07:46; Status DC Pantoprazole Sodium (Protonix Vial) 40 mg 1X ONCE IVP Last administered on 07:50; Start 08/28/17 at 07:45; Stop 08/28/17 at 07:46; Status DC Morphine Sulfate 2 mg PRN Q15MIN PRN IV/SQ PAIN GREATER THAN 3/10; Start at 07:45; Stop 08/29/17 at 07:44; Status DC Ondansetron HCl (Zofran) 4 mg PRN Q8HRS PRN IV NAUSEA/VOMITING; Start 08/28/17 at 10:00; Stop 08/29/17 at 09:59; Status DC Morphine Sulfate 2 mg PRN Q2HR PRN IV PAIN; Start 08/28/17 at 10:00; Stop 08/29 at 09:59; Status DC Sodium Chloride 1,000 ml @ 125 mls/hr Q8H IV Last administered on 08/29/17 02 :05; Start 08/28/17 at 09:49; Stop 08/29/17 at 09:48; Status DC Ciprofloxacin/ Dextrose 200 ml @ 200 mls/hr 1X ONCE IV Last administered on 08/28/17 10:24; Start 08/28/17 at 10:00; Stop 08/28/17 at 10:59; Status DC Metronidazole 100 ml @ 100 mls/hr Q8HRS IV Last administered on 09/04/17 05: 10; Start 08/28/17 at 11:00 Metronidazole 100 ml @ 100 mls/hr 1X ONCE IV ; Start 08/28/17 at 10:00; Stop 08/28/17 at 10:59; Status Cancel Ciprofloxacin/ Dextrose 200 ml @ 200 mls/hr Q12HR IV Last administered on 08:35; Start 08/28/17 at 21:00 Famotidine (Pepcid Vial) 20 mg BID IVP Last administered on 09/04/17 08:37; Start 08/28/17 at 12:00 Polyethylene Glycol (miraLAX Powder BULK BOTTLE) 238 gm 1X ONCE PO Last administered on 08/28/17 17:26; Start 08/28/17 at 16:00; Stop 08/28/17 at 16:01 ; Status DC Bisacodyl (Dulcolax Tab) 10 mg 1X ONCE PO Last administered on 08/28/17 14:56 ; Start 08/28/17 at 15:00; Stop 08/28/17 at 15:01; Status DC Lactobacillus Rhamnosus (Culturelle) 1 cap BID PO Last administered on 08:37; Start 08/28/17 at 21:00 Fentanyl Citrate (Fentanyl 2ml Vial) 25 mcg PRN Q5MIN PRN IV MILD PAIN; Start 08/29/17 at 07:00; Stop 08/29/17 at 18:00; Status DC Fentanyl Citrate (Fentanyl 2ml Vial) 50 mcg PRN Q5MIN PRN IV MODERATE PAIN; Start 08/29/17 at 07:00; Stop 08/29/17 at 18:00; Status DC Morphine Sulfate 1 mg PRN Q10MIN PRN IV SEVERE PAIN; Start 08/29/17 at 07:00; Stop 08/29/17 at 18:00; Status DC Ringer's Solution 1,000 ml @ 30 mls/hr Q24H IV Last administered on 08/29/17t 13:58; Start 08/29/17 at 07:00; Stop 08/29/17 at 18:59; Status DC Lidocaine HCl (Xylocaine-Mpf 1% Vial) 2 ml PRN 1X PRN ID IV START; Start at 07:00; Stop 08/29/17 at 18:00; Status DC Hydromorphone HCl (Dilaudid) 0.5 mg PRN Q10MIN PRN IV SEV PAIN, Second choice; Start 08/29/17 at 07:00; Stop 08/29/17 at 18:00; Status DC Prochlorperazine Edisylate (Compazine) 5 mg PACU PRN PRN IV NAUSEA, MRX1; Start 08/29/17 at 07:00; Stop 08/29/17 at 18:00; Status DC Nicotine (Nicoderm Cq 21mg) 1 patch PRN DAILY PRN TD SMOKING CESSATION; Start 08/28/17 at 16:00 Nicotine Polacrilex (Nicorette Gum) 1 each PRN Q1HR PRN BC SMOKING CESSATION Last administered on 08/29/17t 08:37; Start 08/28/17 at 16:00 Midazolam HCl (Versed) 2 mg PRN 1X PRN IV PRIOR TO PROCEDURE; Start 08/29/17 at 10:45; Stop 08/30/17 at 10:44; Status DC Fentanyl Citrate (Fentanyl 2ml Vial) 25 mcg PRN Q5MIN PRN IV X 2 DOSES FOR PAIN ; Start 08/29/17 at 10:45; Stop 08/30/17 at 10:44; Status DC Fentanyl Citrate (Fentanyl 2ml Vial) 50 mcg PRN Q5MIN PRN IV X 2 DOSES FOR PAIN ; Start 08/29/17 at 10:45; Stop 08/30/17 at 10:44; Status DC Ringer's Solution 1,000 ml @ 125 mls/hr Q8H IV ; Start 08/29/17 at 10:32; Stop 08/29/17 at 20:00; Status DC Lidocaine HCl (Xylocaine-Mpf 1% Vial) 2 ml 1X PRN PRN ID IV START; Start at 10:45; Stop 08/30/17 at 10:44; Status DC Propofol 20 ml @ As Directed STK-MED ONCE IV ; Start 08/29/17 at 14:27; Stop at 14:28; Status DC Lidocaine HCl (Lidocaine Pf 2% Vial) 5 ml STK-MED ONCE .ROUTE ; Start 08/29/17 at 14:27; Stop 08/29/17 at 14:28; Status DC Propofol 20 ml @ As Directed STK-MED ONCE IV ; Start 08/29/17 at 14:28; Stop at 14:29; Status DC Propofol 20 ml @ As Directed STK-MED ONCE IV ; Start 08/30/17 at 10:26; Stop 08/30/17 at 10:27; Status DC Lidocaine HCl (Lidocaine Pf 2% Vial) 5 ml STK-MED ONCE .ROUTE ; Start 08/30/17 at 10:26; Stop 08/30/17 at 10:27; Status DC Dexamethasone Sodium Phosphate (Decadron) 20 mg STK-MED ONCE .ROUTE ; Start 08/06 at 10:26; Stop 08/30/17 at 10:27; Status DC Ondansetron HCl (Zofran) 4 mg STK-MED ONCE .ROUTE ; Start 08/30/17 at 10:26; Stop 08/30/17 at 10:27; Status DC Midazolam HCl (Versed) 2 mg STK-MED ONCE .ROUTE ; Start 08/30/17 at 10:27; Stop 08/30/17 at 10:28; Status DC Fentanyl Citrate (Fentanyl 5ml Vial) 250 mcg STK-MED ONCE .ROUTE ; Start at 10:27; Stop 08/30/17 at 10:28; Status DC Succinylcholine Chloride (Anectine) 200 mg STK-MED ONCE .ROUTE ; Start at 10:28; Stop 08/30/17 at 10:29; Status DC Rocuronium West (Zemuron) 50 mg STK-MED ONCE .ROUTE ; Start 08/30/17 at 10: 28; Stop 08/30/17 at 10:29; Status DC Cefoxitin Sodium 2 gm/Dextrose 100 ml @ 200 mls/hr 1X ONCE IV ; Start at 10:45; Stop 08/30/17 at 11:14; Status UNV Cefoxitin Sodium 100 ml @ 200 mls/hr ONCE ONCE IV Last administered on t 11:10; Start 08/30/17 at 11:00; Stop 08/30/17 at 11:29; Status DC Rocuronium West (Zemuron) 50 mg STK-MED ONCE .ROUTE ; Start 08/30/17 at 11: 20; Stop 08/30/17 at 11:21; Status DC Ephedrine Sulfate (Akovaz) 50 mg STK-MED ONCE .ROUTE ; Start 08/30/17 at 11:23 ; Stop 08/30/17 at 11:24; Status DC Ringer's Solution 1,000 ml @ 30 mls/hr Q24H IV Last administered on t 02:36; Start 08/30/17 at 11:45; Stop 09/01/17 at 19:38; Status DC Neostigmine Methylsulfate (Bloxiverz) 10 mg STK-MED ONCE .ROUTE ; Start at 12:54; Stop 08/30/17 at 12:55; Status DC Glycopyrrolate (Robinul) 1 mg STK-MED ONCE .ROUTE ; Start 08/30/17 at 12:54; Stop 08/30/17 at 12:55; Status DC Sevoflurane (Ultane) 90 ml STK-MED ONCE IH ; Start 08/30/17 at 13:00; Stop 08/06 at 13:01; Status DC Morphine Sulfate 10 mg STK-MED ONCE .ROUTE ; Start 08/30/17 at 13:35; Stop 08/06 at 13:36; Status DC Phenylephrine HCl (Kota-Synephrine Inj) 10 mg STK-MED ONCE .ROUTE ; Start at 14:18; Stop 08/30/17 at 14:19; Status DC Sodium Chloride (Sodium Chloride) 50 ml STK-MED ONCE IJ ; Start 08/30/17 at 14: 18; Stop 08/30/17 at 14:19; Status DC Morphine Sulfate 2 mg STK-MED ONCE .ROUTE ; Start 08/30/17 at 15:07; Stop 08/06 at 15:08; Status DC Fentanyl Citrate (Fentanyl 2ml Vial) 100 mcg STK-MED ONCE .ROUTE ; Start at 15:08; Stop 08/30/17 at 15:09; Status DC Ondansetron HCl (Zofran) 4 mg PRN Q6HRS PRN IV NAUSEA/VOMITING; Start at 15:15; Stop 08/31/17 at 15:14; Status DC Fentanyl Citrate (Fentanyl 2ml Vial) 25 mcg PRN Q5MIN PRN IV MILD PAIN Last administered on 08/30/17t 16:07; Start 08/30/17 at 15:15; Stop 08/31/17 at 15 :14; Status DC Fentanyl Citrate (Fentanyl 2ml Vial) 50 mcg PRN Q5MIN PRN IV MODERATE PAIN Last administered on 08/30/17 16:20; Start 08/30/17 at 15:15; Stop 08/31/17 at 15:14; Status DC Morphine Sulfate 1 mg PRN Q10MIN PRN IV SEVERE PAIN Last administered on t 15:56; Start 08/30/17 at 15:15; Stop 08/31/17 at 15:14; Status DC Ringer's Solution 1,000 ml @ 0 mls/hr Q0M IV ; Start 08/30/17 at 15:11; Stop 08/31/17 at 03:10; Status DC Lidocaine HCl (Xylocaine-Mpf 1% Vial) 2 ml PRN 1X PRN ID PRIOR TO IV START; Start 08/30/17 at 15:15; Stop 08/31/17 at 15:14; Status DC Hydromorphone HCl (Dilaudid) 0.5 mg PRN Q10MIN PRN IV SEV PAIN, Second choice; Start 08/30/17 at 15:15; Stop 08/31/17 at 15:14; Status DC Prochlorperazine Edisylate (Compazine) 5 mg PACU PRN PRN IV NAUSEA, MRX1; Start 08/30/17 at 15:15; Stop 08/31/17 at 15:14; Status DC Ondansetron HCl (Zofran) 4 mg PRN Q6HRS PRN IV NAUSEA/VOMITING; Start at 15:30; Stop 08/31/17 at 15:29; Status UNV Fentanyl Citrate (Fentanyl 2ml Vial) 25 mcg PRN Q5MIN PRN IV MILD PAIN; Start 08/30/17 at 15:30; Stop 08/31/17 at 15:29; Status UNV Fentanyl Citrate (Fentanyl 2ml Vial) 50 mcg PRN Q5MIN PRN IV MODERATE PAIN; Start 08/30/17 at 15:30; Stop 08/31/17 at 15:29; Status UNV Morphine Sulfate 1 mg PRN Q10MIN PRN IV SEVERE PAIN; Start 08/30/17 at 15:30; Stop 08/31/17 at 15:29; Status UNV Ringer's Solution 1,000 ml @ 0 mls/hr Q0M IV ; Start 08/30/17 at 15:16; Stop 08/31/17 at 03:15; Status UNV Lidocaine HCl (Xylocaine-Mpf 1% Vial) 2 ml PRN 1X PRN ID PRIOR TO IV START; Start 08/30/17 at 15:30; Stop 08/31/17 at 15:29; Status UNV Hydromorphone HCl (Dilaudid) 0.5 mg PRN Q10MIN PRN IV SEV PAIN, Second choice; Start 08/30/17 at 15:30; Stop 08/31/17 at 15:29; Status UNV Prochlorperazine Edisylate (Compazine) 5 mg PACU PRN PRN IV NAUSEA, MRX1; Start 08/30/17 at 15:30; Stop 08/31/17 at 15:29; Status UNV Diphenhydramine HCl (Benadryl) 25 mg PRN Q6HRS PRN IV ITCHING Last administered on 09/02/17 20:55; Start 08/30/17 at 15:30 Enoxaparin Sodium (Lovenox 40mg Syringe) 40 mg Q24H SQ Last administered on 08:36; Start 08/31/17 at 09:00 Sodium Chloride (Normal Saline Flush) 3 ml QSHIFT PRN IV AFTER MEDS AND BLOOD DRAWS; Start 08/30/17 at 15:30 Potassium Chloride/Sodium Chloride 1,000 ml @ 100 mls/hr Q10H IV Last administered on 08/31/17 04:10; Start 08/30/17 at 15:27; Stop 08/31/17 at 11 :04; Status DC Hydromorphone HCl 30 ml @ 0 mls/hr CONT PRN PRN IV PROTOCOL Last administered on 08/31/17 05:32; Start 08/30/17 at 15:30; Stop 09/02/17 at 11:20; Status DC Ondansetron HCl (Zofran) 4 mg PRN Q6HRS PRN IV NAUESA, 1ST CHOICE Last administered on 09/02/17 16:06; Start 08/30/17 at 15:30 Throat Lozenges (Cepacol Sore Throat Lozenge) 1 michael PRN Q2HRS PRN PO SORE THROAT Last administered on 08/31/17 11:56; Start 08/30/17 at 15:30 Throat Lozenges (Chloraseptic) 1 spray PRN Q2HR PRN PO SORE THROAT; Start 08/06 at 15:30 Fentanyl Citrate (Fentanyl 2ml Vial) 100 mcg STK-MED ONCE .ROUTE ; Start at 16:03; Stop 08/30/17 at 16:04; Status DC Sodium Chloride 500 ml @ 100 mls/hr 1X ONCE IV Last administered on 11:53; Start 08/31/17 at 11:30; Stop 08/31/17 at 16:29; Status DC Magnesium Sulfate/ Dextrose 50 ml @ 25 mls/hr 1X ONCE IV Last administered on 08/31/17 12:18; Start 08/31/17 at 11:45; Stop 08/31/17 at 13:44; Status DC Magnesium Sulfate/ Dextrose 50 ml @ 25 mls/hr 1X ONCE IV Last administered on 09/01/17 10:22; Start 09/01/17 at 08:45; Stop 09/01/17 at 10:44; Status DC Amino Acids/ Glycerin/ Electrolytes 1,000 ml @ 80 mls/hr [id number] IV Last administered on 09/04/17 02:37; Start 09/01/17 at 10:30 Cefoxitin Sodium (Mefoxin 1gm Ivpb For Omni) 1 gm STK-MED ONCE IV ; Start 08/30 at 13:46; Stop 09/02/17 at 08:40; Status DC Iron Sucrose 500 mg/Sodium Chloride 275 ml @ 78.571 mls/ hr 1X ONCE IV Last administered on 09/02/17 11:35; Start 09/02/17 at 10:30; Stop 09/02/17 at 13 :59; Status DC Hydromorphone HCl (Dilaudid) 0.3 mg PRN Q4HRS PRN IVP PAIN; Start 09/02/17 at 11:30 Iron Sucrose 500 mg/Sodium Chloride 275 ml @ 78.571 mls/ hr 1X ONCE IV ; Start 09/02/17 at 12:15; Stop 09/02/17 at 15:44; Status UNV Oxycodone/ Acetaminophen (Percocet 5/325) 1 tab PRN Q4HRS PRN PO PAIN Last administered on 09/03/17 19:45; Start 09/02/17 at 13:15 Potassium Chloride (Klor-Con) 20 meq 1X ONCE PO Last administered on 09:01; Start 09/03/17 at 08:45; Stop 09/03/17 at 08:46; Status DC Ferrous Sulfate (Feosol) 325 mg BIDWMEALS PO ; Start 09/04/17 at 12:00; Stop 09/04/17 at 12:00; Status DC Cyanocobalamin (Vitamin B-12) 1,000 mcg DAILY PO Last administered on 12:04; Start 09/04/17 at 11:00 Iron Sucrose 200 mg/Sodium Chloride 110 ml @ 55 mls/hr DAILY IV ; Start at 12:00; Stop 09/08/17 at 10:00; Status Cancel Iron Sucrose 200 mg/Miscellaneous 10 ml @ 120 mls/hr DAILY IV Last administered on 09/04/17 13:37; Start 09/04/17 at 13:00; Stop 09/08/17 at 09 :04 Vitals/I & O Vital Sign - Last 24 Hours 09/03/17 09/03/17 09/03/17 09/03/17 15:00 19:00 19:45 20:12 Temp 97.9 98.1 97.9 98.1 Pulse 81 84 Resp 18 18 18 B/P (MAP) 124/74 (91) 143/80 (101) Pulse Ox 99 96 99 O2 Delivery Room Air Room Air Nasal Cannula Room Air O2 Flow Rate 2.0 09/03/17 09/03/17 09/04/17 09/04/17 20:45 23:00 07:00 08:00 Temp 97.9 98.6 97.9 98.6 Pulse 84 86 Resp 18 18 20 B/P (MAP) 120/81 (94) 124/79 (94) Pulse Ox 99 97 96 O2 Delivery Room Air Room Air Room Air Room Air O2 Flow Rate 2.0 2.0 09/04/17 11:00 Temp 97.5 97.5 Pulse 84 Resp 20 B/P (MAP) 111/68 (82) Pulse Ox 98 O2 Delivery Room Air Intake and Output 09/03/17 09/03/17 09/04/17 15:00 23:00 07:00 Intake Total 1600 ml 520 ml 1510 ml Output Total 1000 ml 250 ml 640 ml Balance 600 ml 270 ml 870 ml Nutrition Consultation Dietary Evaluation: Recommendations by RD: PPN/TPN, Add supplement feedings Comments: send boost breeze while on clear liquids ppn until diet adv/ tolerated Expected Outcomes/Goals: to meet > 75% est nutr needs Malnutrition Findings: Food and Nutrition Intake (Sev: <50% est energy req 5days Weight Status: Appropriate AUBREE ORTEGA MD Sep 04, 2017 14:03
[2017-09-04 15:00] VITALS: BP 125/82
--- NOTE | 2017-09-04 15:42 | RAD ---
Portable abdomen, 09/04/2017: History: Postop ileus Comparison is made to a study from 08/30/2017. A surgical drain remains in place projected over the pelvis. There is now mild gaseous distention of multiple small bowel loops. Gas is present in the large bowel with only mild prominence of the transverse colon. There is no evidence of organomegaly. Moderate degenerative changes are evident in the spine. IMPRESSION: Mild gaseous distention of small bowel loops compatible with an ileus, although partial small bowel obstruction cannot be excluded.
--- NOTE | 2017-09-04 16:47 | PDOC ---
PROGRESS NOTES Subjective Subjective HPI - Adenocarcinoma of the sigmoid colon [id number] stage II, diagnosed by colonoscopy by Dr. Gerard Taylor on 08/29/2017, status post sigmoid colon resection by Dr. Brooks on 08/30/2017. ROS - no abd pain, no n/v Objective Objective Vital Signs Date Time Temp Pulse Resp B/P (MAP) Pulse Ox O2 Delivery O2 Flow Rate FiO2 09/04/17 15:00 97.9 77 20 125/82 (96) 99 Room Air 97.9 09/04/17 08:00 2.0 Intake and Output 09/04/17 07:00 Intake Total 3630 ml Output Total 1890 ml Balance 1740 ml Intake Oral 830 ml IV Total 2800 ml Output Urine Total 1550 ml Drainage Total 340 ml Physical Exam Heart: Normal S1, Normal S2 General: Alert, Oriented X3 Lungs: Clear to auscultation Neuro: Normal speech Psych/Mental Status: Mental status NL Assessment Assessment Problems Medical Problems: (1) Diverticulitis Status: Acute IMPRESSION AND PLAN: 1. Adenocarcinoma of the sigmoid colon [id number] stage II, diagnosed by colonoscopy by Dr. Gerard Taylor on 08/29/2017, status post sigmoid colon resection by Dr. Brooks on 08/30/2017. INFILTRATING MODERATELY DIFFERENTIATED ADENOCARCINOMA measuring 7.5 cm in greatest dimension arising in the sigmoid colon and extending through the wall into the adjacent segment of small intestine. [address] negative. Final pathology results from the surgery reviewed, I would recommend adjuvant chemotherapy. I d/w patient. Ordered CT chest for staging w/u. 2. Microcytic anemia secondary to iron deficiency. Hemoglobin 10.2 on 08/28/2017 and 8.3 on 08/30/2017. Continue to monitor hemoglobin. Plan iron supplementation. Hb 8.3. s/p venofer infusion 09/02/17. Comment Review of Relevant I have reviewed the following items deloris (where applicable) has been applied. Labs Laboratory Tests Test 09/03/17 04:21 09/04/17 05:25 White Blood Count 5.7 x10^3/uL (4.0-11.0) 5.8 x10^3/uL (4.0-11.0) Red Blood Count 4.21 x10^6/uL (4.30-5.70) 4.18 x10^6/uL (4.30-5.70) Hemoglobin 8.3 g/dL (13.0-17.5) 8.3 g/dL (13.0-17.5) Hematocrit 26.8 % (39.0-53.0) 26.6 % (39.0-53.0) Mean Corpuscular Volume 64 fL (79-100) 64 fL (79-100) Mean Corpuscular Hemoglobin 20 pg (25-35) 20 pg (25-35) Mean Corpuscular Hemoglobin Concent 31 g/dL (31-37) 31 g/dL (31-37) Red Cell Distribution Width 18.3 % (11.5-14.5) 18.2 % (11.5-14.5) Platelet Count 310 x10^3/uL (140-400) 349 x10^3/uL (140-400) Neutrophils (%) (Auto) 77 % (31-73) 76 % (31-73) Lymphocytes (%) (Auto) 13 % (24-48) 14 % (24-48) Monocytes (%) (Auto) 5 % (0-9) 6 % (0-9) Eosinophils (%) (Auto) 4 % (0-3) 5 % (0-3) Basophils (%) (Auto) 0 % (0-3) 0 % (0-3) Neutrophils # (Auto) 4.4 x10^3uL (1.8-7.7) 4.3 x10^3uL (1.8-7.7) Lymphocytes # (Auto) 0.8 x10^3/uL (1.0-4.8) 0.8 x10^3/uL (1.0-4.8) Monocytes # (Auto) 0.3 x10^3/uL (0.0-1.1) 0.3 x10^3/uL (0.0-1.1) Eosinophils # (Auto) 0.2 x10^3/uL (0.0-0.7) 0.3 x10^3/uL (0.0-0.7) Basophils # (Auto) 0.0 x10^3/uL (0.0-0.2) 0.0 x10^3/uL (0.0-0.2) Sodium Level 138 mmol/L (136-145) 135 mmol/L (136-145) Potassium Level 3.4 mmol/L (3.5-5.1) 3.7 mmol/L (3.5-5.1) Chloride Level 103 mmol/L (98-107) 104 mmol/L (98-107) Carbon Dioxide Level 32 mmol/L (21-32) 28 mmol/L (21-32) Anion Gap 3 (6-14) 3 (6-14) Blood Urea Nitrogen 8 mg/dL (8-26) 9 mg/dL (8-26) Creatinine 0.6 mg/dL (0.7-1.3) 0.6 mg/dL (0.7-1.3) Estimated GFR (Cockcroft-Gault) 138.9 138.9 BUN/Creatinine Ratio 13 (6-20) Glucose Level 103 mg/dL (70-99) 101 mg/dL (70-99) Calcium Level 8.3 mg/dL (8.5-10.1) 8.3 mg/dL (8.5-10.1) Total Bilirubin 0.2 mg/dL (0.2-1.0) Aspartate Amino Transf (AST/SGOT) 15 U/L (15-37) Alanine Aminotransferase (ALT/SGPT) 10 U/L (16-63) Alkaline Phosphatase 54 U/L (46-116) Total Protein 6.0 g/dL (6.4-8.2) Albumin 2.0 g/dL (3.4-5.0) Albumin/Globulin Ratio 0.5 (1.0-1.7) Laboratory Tests Test 09/04/17 05:25 White Blood Count 5.8 x10^3/uL (4.0-11.0) Red Blood Count 4.18 x10^6/uL (4.30-5.70) Hemoglobin 8.3 g/dL (13.0-17.5) Hematocrit 26.6 % (39.0-53.0) Mean Corpuscular Volume 64 fL (79-100) Mean Corpuscular Hemoglobin 20 pg (25-35) Mean Corpuscular Hemoglobin Concent 31 g/dL (31-37) Red Cell Distribution Width 18.2 % (11.5-14.5) Platelet Count 349 x10^3/uL (140-400) Neutrophils (%) (Auto) 76 % (31-73) Lymphocytes (%) (Auto) 14 % (24-48) Monocytes (%) (Auto) 6 % (0-9) Eosinophils (%) (Auto) 5 % (0-3) Basophils (%) (Auto) 0 % (0-3) Neutrophils # (Auto) 4.3 x10^3uL (1.8-7.7) Lymphocytes # (Auto) 0.8 x10^3/uL (1.0-4.8) Monocytes # (Auto) 0.3 x10^3/uL (0.0-1.1) Eosinophils # (Auto) 0.3 x10^3/uL (0.0-0.7) Basophils # (Auto) 0.0 x10^3/uL (0.0-0.2) Sodium Level 135 mmol/L (136-145) Potassium Level 3.7 mmol/L (3.5-5.1) Chloride Level 104 mmol/L (98-107) Carbon Dioxide Level 28 mmol/L (21-32) Anion Gap 3 (6-14) Blood Urea Nitrogen 9 mg/dL (8-26) Creatinine 0.6 mg/dL (0.7-1.3) Estimated GFR (Cockcroft-Gault) 138.9 Glucose Level 101 mg/dL (70-99) Calcium Level 8.3 mg/dL (8.5-10.1) Microbiology 08/30/17 Anaerobic/Aerobic Culture - Final, Complete 08/30/17 Anaerobic Culture Result 1 (VINAY) - Final, Complete 08/30/17 Aerobic Culture - Final, Complete 08/30/17 Aerobic Culture Result 1 (VINAY) - Final, Complete Medications Current Medications Sodium Chloride 1,000 ml @ 1,000 mls/hr 1X ONCE IV Last administered on 07:48; Start 08/28/17 at 07:45; Stop 08/28/17 at 08:44; Status DC Ondansetron HCl (Zofran) 4 mg 1X ONCE IV Last administered on 08/28/17 07:48 ; Start 08/28/17 at 07:45; Stop 08/28/17 at 07:46; Status DC Pantoprazole Sodium (Protonix Vial) 40 mg 1X ONCE IVP Last administered on 07:50; Start 08/28/17 at 07:45; Stop 08/28/17 at 07:46; Status DC Morphine Sulfate 2 mg PRN Q15MIN PRN IV/SQ PAIN GREATER THAN 3/10; Start at 07:45; Stop 08/29/17 at 07:44; Status DC Ondansetron HCl (Zofran) 4 mg PRN Q8HRS PRN IV NAUSEA/VOMITING; Start 08/28/17 at 10:00; Stop 08/29/17 at 09:59; Status DC Morphine Sulfate 2 mg PRN Q2HR PRN IV PAIN; Start 08/28/17 at 10:00; Stop 08/29 at 09:59; Status DC Sodium Chloride 1,000 ml @ 125 mls/hr Q8H IV Last administered on 08/29/17 02 :05; Start 08/28/17 at 09:49; Stop 08/29/17 at 09:48; Status DC Ciprofloxacin/ Dextrose 200 ml @ 200 mls/hr 1X ONCE IV Last administered on 08/28/17 10:24; Start 08/28/17 at 10:00; Stop 08/28/17 at 10:59; Status DC Metronidazole 100 ml @ 100 mls/hr Q8HRS IV Last administered on 09/04/17 05: 10; Start 08/28/17 at 11:00; Stop 09/04/17 at 14:00; Status DC Metronidazole 100 ml @ 100 mls/hr 1X ONCE IV ; Start 08/28/17 at 10:00; Stop 08/28/17 at 10:59; Status Cancel Ciprofloxacin/ Dextrose 200 ml @ 200 mls/hr Q12HR IV Last administered on 08:35; Start 08/28/17 at 21:00 Famotidine (Pepcid Vial) 20 mg BID IVP Last administered on 09/04/17 08:37; Start 08/28/17 at 12:00; Stop 09/04/17 at 13:59; Status DC Polyethylene Glycol (miraLAX Powder BULK BOTTLE) 238 gm 1X ONCE PO Last administered on 08/28/17 17:26; Start 08/28/17 at 16:00; Stop 08/28/17 at 16:01 ; Status DC Bisacodyl (Dulcolax Tab) 10 mg 1X ONCE PO Last administered on 08/28/17 14:56 ; Start 08/28/17 at 15:00; Stop 08/28/17 at 15:01; Status DC Lactobacillus Rhamnosus (Culturelle) 1 cap BID PO Last administered on 08:37; Start 08/28/17 at 21:00 Fentanyl Citrate (Fentanyl 2ml Vial) 25 mcg PRN Q5MIN PRN IV MILD PAIN; Start 08/29/17 at 07:00; Stop 08/29/17 at 18:00; Status DC Fentanyl Citrate (Fentanyl 2ml Vial) 50 mcg PRN Q5MIN PRN IV MODERATE PAIN; Start 08/29/17 at 07:00; Stop 08/29/17 at 18:00; Status DC Morphine Sulfate 1 mg PRN Q10MIN PRN IV SEVERE PAIN; Start 08/29/17 at 07:00; Stop 08/29/17 at 18:00; Status DC Ringer's Solution 1,000 ml @ 30 mls/hr Q24H IV Last administered on 08/29/17 13:58; Start 08/29/17 at 07:00; Stop 08/29/17 at 18:59; Status DC Lidocaine HCl (Xylocaine-Mpf 1% Vial) 2 ml PRN 1X PRN ID IV START; Start at 07:00; Stop 08/29/17 at 18:00; Status DC Hydromorphone HCl (Dilaudid) 0.5 mg PRN Q10MIN PRN IV SEV PAIN, Second choice; Start 08/29/17 at 07:00; Stop 08/29/17 at 18:00; Status DC Prochlorperazine Edisylate (Compazine) 5 mg PACU PRN PRN IV NAUSEA, MRX1; Start 08/29/17 at 07:00; Stop 08/29/17 at 18:00; Status DC Nicotine (Nicoderm Cq 21mg) 1 patch PRN DAILY PRN TD SMOKING CESSATION; Start 08/28/17 at 16:00 Nicotine Polacrilex (Nicorette Gum) 1 each PRN Q1HR PRN BC SMOKING CESSATION Last administered on 08/29/17 08:37; Start 08/28/17 at 16:00 Midazolam HCl (Versed) 2 mg PRN 1X PRN IV PRIOR TO PROCEDURE; Start 08/29/17 at 10:45; Stop 08/30/17 at 10:44; Status DC Fentanyl Citrate (Fentanyl 2ml Vial) 25 mcg PRN Q5MIN PRN IV X 2 DOSES FOR PAIN ; Start 08/29/17 at 10:45; Stop 08/30/17 at 10:44; Status DC Fentanyl Citrate (Fentanyl 2ml Vial) 50 mcg PRN Q5MIN PRN IV X 2 DOSES FOR PAIN ; Start 08/29/17 at 10:45; Stop 08/30/17 at 10:44; Status DC Ringer's Solution 1,000 ml @ 125 mls/hr Q8H IV ; Start 08/29/17 at 10:32; Stop 08/29/17 at 20:00; Status DC Lidocaine HCl (Xylocaine-Mpf 1% Vial) 2 ml 1X PRN PRN ID IV START; Start at 10:45; Stop 08/30/17 at 10:44; Status DC Propofol 20 ml @ As Directed STK-MED ONCE IV ; Start 08/29/17 at 14:27; Stop at 14:28; Status DC Lidocaine HCl (Lidocaine Pf 2% Vial) 5 ml STK-MED ONCE .ROUTE ; Start 08/29/17 at 14:27; Stop 08/29/17 at 14:28; Status DC Propofol 20 ml @ As Directed STK-MED ONCE IV ; Start 08/29/17 at 14:28; Stop at 14:29; Status DC Propofol 20 ml @ As Directed STK-MED ONCE IV ; Start 08/30/17 at 10:26; Stop 08/30/17 at 10:27; Status DC Lidocaine HCl (Lidocaine Pf 2% Vial) 5 ml STK-MED ONCE .ROUTE ; Start 08/30/17 at 10:26; Stop 08/30/17 at 10:27; Status DC Dexamethasone Sodium Phosphate (Decadron) 20 mg STK-MED ONCE .ROUTE ; Start 08/06 at 10:26; Stop 08/30/17 at 10:27; Status DC Ondansetron HCl (Zofran) 4 mg STK-MED ONCE .ROUTE ; Start 08/30/17 at 10:26; Stop 08/30/17 at 10:27; Status DC Midazolam HCl (Versed) 2 mg STK-MED ONCE .ROUTE ; Start 08/30/17 at 10:27; Stop 08/30/17 at 10:28; Status DC Fentanyl Citrate (Fentanyl 5ml Vial) 250 mcg STK-MED ONCE .ROUTE ; Start at 10:27; Stop 08/30/17 at 10:28; Status DC Succinylcholine Chloride (Anectine) 200 mg STK-MED ONCE .ROUTE ; Start at 10:28; Stop 08/30/17 at 10:29; Status DC Rocuronium [place] (Zemuron) 50 mg STK-MED ONCE .ROUTE ; Start 08/30/17 at 10: 28; Stop 08/30/17 at 10:29; Status DC Cefoxitin Sodium 2 gm/Dextrose 100 ml @ 200 mls/hr 1X ONCE IV ; Start at 10:45; Stop 08/30/17 at 11:14; Status UNV Cefoxitin Sodium 100 ml @ 200 mls/hr ONCE ONCE IV Last administered on t 11:10; Start 08/30/17 at 11:00; Stop 08/30/17 at 11:29; Status DC Rocuronium [place] (Zemuron) 50 mg STK-MED ONCE .ROUTE ; Start 08/30/17 at 11: 20; Stop 08/30/17 at 11:21; Status DC Ephedrine Sulfate (Akovaz) 50 mg STK-MED ONCE .ROUTE ; Start 08/30/17 at 11:23 ; Stop 08/30/17 at 11:24; Status DC Ringer's Solution 1,000 ml @ 30 mls/hr Q24H IV Last administered on t 02:36; Start 08/30/17 at 11:45; Stop 09/01/17 at 19:38; Status DC Neostigmine Methylsulfate (Bloxiverz) 10 mg STK-MED ONCE .ROUTE ; Start at 12:54; Stop 08/30/17 at 12:55; Status DC Glycopyrrolate (Robinul) 1 mg STK-MED ONCE .ROUTE ; Start 08/30/17 at 12:54; Stop 08/30/17 at 12:55; Status DC Sevoflurane (Ultane) 90 ml STK-MED ONCE IH ; Start 08/30/17 at 13:00; Stop 08/06 at 13:01; Status DC Morphine Sulfate 10 mg STK-MED ONCE .ROUTE ; Start 08/30/17 at 13:35; Stop 08/06 at 13:36; Status DC Phenylephrine HCl (Kota-Synephrine Inj) 10 mg STK-MED ONCE .ROUTE ; Start at 14:18; Stop 08/30/17 at 14:19; Status DC Sodium Chloride (Sodium Chloride) 50 ml STK-MED ONCE IJ ; Start 08/30/17 at 14: 18; Stop 08/30/17 at 14:19; Status DC Morphine Sulfate 2 mg STK-MED ONCE .ROUTE ; Start 08/30/17 at 15:07; Stop 08/06 at 15:08; Status DC Fentanyl Citrate (Fentanyl 2ml Vial) 100 mcg STK-MED ONCE .ROUTE ; Start at 15:08; Stop 08/30/17 at 15:09; Status DC Ondansetron HCl (Zofran) 4 mg PRN Q6HRS PRN IV NAUSEA/VOMITING; Start at 15:15; Stop 08/31/17 at 15:14; Status DC Fentanyl Citrate (Fentanyl 2ml Vial) 25 mcg PRN Q5MIN PRN IV MILD PAIN Last administered on 08/30/17 16:07; Start 08/30/17 at 15:15; Stop 08/31/17 at 15 :14; Status DC Fentanyl Citrate (Fentanyl 2ml Vial) 50 mcg PRN Q5MIN PRN IV MODERATE PAIN Last administered on 08/30/17t 16:20; Start 08/30/17 at 15:15; Stop 08/31/17 at 15:14; Status DC Morphine Sulfate 1 mg PRN Q10MIN PRN IV SEVERE PAIN Last administered on 15:56; Start 08/30/17 at 15:15; Stop 08/31/17 at 15:14; Status DC Ringer's Solution 1,000 ml @ 0 mls/hr Q0M IV ; Start 08/30/17 at 15:11; Stop 08/31/17 at 03:10; Status DC Lidocaine HCl (Xylocaine-Mpf 1% Vial) 2 ml PRN 1X PRN ID PRIOR TO IV START; Start 08/30/17 at 15:15; Stop 08/31/17 at 15:14; Status DC Hydromorphone HCl (Dilaudid) 0.5 mg PRN Q10MIN PRN IV SEV PAIN, Second choice; Start 08/30/17 at 15:15; Stop 08/31/17 at 15:14; Status DC Prochlorperazine Edisylate (Compazine) 5 mg PACU PRN PRN IV NAUSEA, MRX1; Start 08/30/17 at 15:15; Stop 08/31/17 at 15:14; Status DC Ondansetron HCl (Zofran) 4 mg PRN Q6HRS PRN IV NAUSEA/VOMITING; Start at 15:30; Stop 08/31/17 at 15:29; Status UNV Fentanyl Citrate (Fentanyl 2ml Vial) 25 mcg PRN Q5MIN PRN IV MILD PAIN; Start 08/30/17 at 15:30; Stop 08/31/17 at 15:29; Status UNV Fentanyl Citrate (Fentanyl 2ml Vial) 50 mcg PRN Q5MIN PRN IV MODERATE PAIN; Start 08/30/17 at 15:30; Stop 08/31/17 at 15:29; Status UNV Morphine Sulfate 1 mg PRN Q10MIN PRN IV SEVERE PAIN; Start 08/30/17 at 15:30; Stop 08/31/17 at 15:29; Status UNV Ringer's Solution 1,000 ml @ 0 mls/hr Q0M IV ; Start 08/30/17 at 15:16; Stop 08/31/17 at 03:15; Status UNV Lidocaine HCl (Xylocaine-Mpf 1% Vial) 2 ml PRN 1X PRN ID PRIOR TO IV START; Start 08/30/17 at 15:30; Stop 08/31/17 at 15:29; Status UNV Hydromorphone HCl (Dilaudid) 0.5 mg PRN Q10MIN PRN IV SEV PAIN, Second choice; Start 08/30/17 at 15:30; Stop 08/31/17 at 15:29; Status UNV Prochlorperazine Edisylate (Compazine) 5 mg PACU PRN PRN IV NAUSEA, MRX1; Start 08/30/17 at 15:30; Stop 08/31/17 at 15:29; Status UNV Diphenhydramine HCl (Benadryl) 25 mg PRN Q6HRS PRN IV ITCHING Last administered on 09/02/17 20:55; Start 08/30/17 at 15:30 Enoxaparin Sodium (Lovenox 40mg Syringe) 40 mg Q24H SQ Last administered on 08:36; Start 08/31/17 at 09:00 Sodium Chloride (Normal Saline Flush) 3 ml QSHIFT PRN IV AFTER MEDS AND BLOOD DRAWS; Start 08/30/17 at 15:30 Potassium Chloride/Sodium Chloride 1,000 ml @ 100 mls/hr Q10H IV Last administered on 08/31/17 04:10; Start 08/30/17 at 15:27; Stop 08/31/17 at 11 :04; Status DC Hydromorphone HCl 30 ml @ 0 mls/hr CONT PRN PRN IV PROTOCOL Last administered on 08/31/17 05:32; Start 08/30/17 at 15:30; Stop 09/02/17 at 11:20; Status DC Ondansetron HCl (Zofran) 4 mg PRN Q6HRS PRN IV NAUESA, 1ST CHOICE Last administered on 09/02/17 16:06; Start 08/30/17 at 15:30 Throat Lozenges (Cepacol Sore Throat Lozenge) 1 michael PRN Q2HRS PRN PO SORE THROAT Last administered on 08/31/17 11:56; Start 08/30/17 at 15:30 Throat Lozenges (Chloraseptic) 1 spray PRN Q2HR PRN PO SORE THROAT; Start 08/06 at 15:30 Fentanyl Citrate (Fentanyl 2ml Vial) 100 mcg STK-MED ONCE .ROUTE ; Start at 16:03; Stop 08/30/17 at 16:04; Status DC Sodium Chloride 500 ml @ 100 mls/hr 1X ONCE IV Last administered on 11:53; Start 08/31/17 at 11:30; Stop 08/31/17 at 16:29; Status DC Magnesium Sulfate/ Dextrose 50 ml @ 25 mls/hr 1X ONCE IV Last administered on 08/31/17 12:18; Start 08/31/17 at 11:45; Stop 08/31/17 at 13:44; Status DC Magnesium Sulfate/ Dextrose 50 ml @ 25 mls/hr 1X ONCE IV Last administered on 09/01/17 10:22; Start 09/01/17 at 08:45; Stop 09/01/17 at 10:44; Status DC Amino Acids/ Glycerin/ Electrolytes 1,000 ml @ 80 mls/hr [id number] IV Last administered on 09/04/17 02:37; Start 09/01/17 at 10:30 Cefoxitin Sodium (Mefoxin 1gm Ivpb For Omni) 1 gm STK-MED ONCE IV ; Start 08/30 at 13:46; Stop 09/02/17 at 08:40; Status DC Iron Sucrose 500 mg/Sodium Chloride 275 ml @ 78.571 mls/ hr 1X ONCE IV Last administered on 09/02/17 11:35; Start 09/02/17 at 10:30; Stop 09/02/17 at 13 :59; Status DC Hydromorphone HCl (Dilaudid) 0.3 mg PRN Q4HRS PRN IVP PAIN; Start 09/02/17 at 11:30 Iron Sucrose 500 mg/Sodium Chloride 275 ml @ 78.571 mls/ hr 1X ONCE IV ; Start 09/02/17 at 12:15; Stop 09/02/17 at 15:44; Status UNV Oxycodone/ Acetaminophen (Percocet 5/325) 1 tab PRN Q4HRS PRN PO PAIN Last administered on 09/03/17 19:45; Start 09/02/17 at 13:15 Potassium Chloride (Klor-Con) 20 meq 1X ONCE PO Last administered on 09:01; Start 09/03/17 at 08:45; Stop 09/03/17 at 08:46; Status DC Ferrous Sulfate (Feosol) 325 mg BIDWMEALS PO ; Start 09/04/17 at 12:00; Stop 09/04/17 at 12:00; Status DC Cyanocobalamin (Vitamin B-12) 1,000 mcg DAILY PO Last administered on 11/15/ 17at 12:04; Start 09/04/17 at 11:00 Iron Sucrose 200 mg/Sodium Chloride 110 ml @ 55 mls/hr DAILY IV ; Start at 12:00; Stop 09/08/17 at 10:00; Status Cancel Iron Sucrose 200 mg/Miscellaneous 10 ml @ 120 mls/hr DAILY IV Last administered on 09/04/17t 13:37; Start 09/04/17 at 13:00; Stop 09/08/17 at 09 :04 Pantoprazole Sodium (Protonix) 40 mg DAILYAC PO ; Start 09/04/17 at 16:30 Calcium Carbonate/ Glycine (Tums) 500 mg PRN AFTMEALHC PRN PO INDIGESTION; Start 09/04/17 at 14:00 Metronidazole 100 ml @ 100 mls/hr BID IV ; Start 09/04/17 at 21:00 Vitals/I & O Vital Sign - Last 24 Hours 09/03/17 09/03/17 09/03/17 09/03/17 19:00 19:45 20:12 20:45 Temp 98.1 98.1 Pulse 84 Resp 18 18 18 B/P (MAP) 143/80 (101) Pulse Ox 96 99 99 O2 Delivery Room Air Nasal Cannula Room Air Room Air O2 Flow Rate 2.0 2.0 09/03/17 09/04/17 09/04/17 09/04/17 23:00 07:00 08:00 11:00 Temp 97.9 98.6 97.5 97.9 98.6 97.5 Pulse 84 86 84 Resp 18 20 20 B/P (MAP) 120/81 (94) 124/79 (94) 111/68 (82) Pulse Ox 97 96 98 O2 Delivery Room Air Room Air Room Air Room Air O2 Flow Rate 2.0 09/04/17 15:00 Temp 97.9 97.9 Pulse 77 Resp 20 B/P (MAP) 125/82 (96) Pulse Ox 99 O2 Delivery Room Air Intake and Output 09/03/17 09/03/17 09/04/17 15:00 23:00 07:00 Intake Total 1600 ml 520 ml 1510 ml Output Total 1000 ml 250 ml 640 ml Balance 600 ml 270 ml 870 ml Nutrition Consultation Dietary Evaluation: Recommendations by RD: PPN/TPN, Add supplement feedings Comments: send boost breeze while on clear liquids ppn until diet adv/ tolerated Expected Outcomes/Goals: to meet > 75% est nutr needs Malnutrition Findings: Food and Nutrition Intake (Sev: <50% est energy req 5days Weight Status: Appropriate FARHAN BARTLETT MD Sep 04, 2017 16:47
[2017-09-04] MEDS: PANTOPRAZOLE 40 MG TABLET.DR. PO SCH (17:48)
[2017-09-04 19:00] VITALS: BP 122/72
[2017-09-04] MEDS: diphenhydrAMINE 50 MG/ML VIAL IV PRN (20:35)
[2017-09-04] MEDS: oxyCODONE/APAP 5/325 1 TAB TABLET PO PRN (20:35)
[2017-09-04 22:56] VITALS: BP 121/72
[2017-09-05] MEDS: AMINO AC 3%/ELECTROLYTE/GLYCER 1,000 ML IV SCH ×2 (02:00→08:42)
[2017-09-05 05:29] LABS: BASO % 1 % (0-3); EOS % 5 % (0-3); HEMOGLOBIN 8.7 g/dL (13.0-17.5); LYMPH % 20 % (24-48); MEAN CORPUSCULAR HEMOGLOBIN 20 pg (25-35); MEAN CORPUSCULAR HGB CONC 31 g/dL (31-37); MEAN CORPUSCULAR VOLUME 65 fL (79-100); MONO % 6 % (0-9); NEUT % 68 % (31-73); PLATELET COUNT 348 x10^3/uL (140-400); RED BLOOD COUNT 4.32 x10^6/uL (4.30-5.70); RED CELL DISTRIBUTION WIDTH 18.5 % (11.5-14.5); WHITE BLOOD COUNT 5.1 x10^3/uL (4.0-11.0)
[2017-09-05 06:10] LABS: CALCIUM 8.7 mg/dL (8.5-10.1); CREATININE 0.7 mg/dL (0.7-1.3); GFR 116.2; POTASSIUM 4.1 mmol/L (3.5-5.1)
[2017-09-05 07:00] VITALS: BP 121/78
[2017-09-05] MEDS: PANTOPRAZOLE 40 MG TABLET.DR. PO SCH (08:43)
[2017-09-05] MEDS: CYANOCOBALAMIN (VITAMIN B-12) 1,000 MCG TABLET. PO SCH (08:43)
[2017-09-05] MEDS: LACTOBACILLUS RHAMNOSUS GG 1 CAPSULE. PO SCH ×2 (08:43→20:46)
[2017-09-05] MEDS: ENOXAPARIN 40 MG/0.4 ML SYRINGE. SQ SCH (08:44)
--- NOTE | 2017-09-05 08:50 | RAD ---
CT of the chest without contrast, 09/04/2017: History: Staging colon cancer Noncontrast scans were obtained as requested. There is mild calcific plaquing of the aorta without evidence of aneurysm. There are calcified mediastinal and bilateral hilar lymph nodes compatible with old granulomatous disease. No mediastinal adenopathy is evident. There are numerous peripheral calcifications in both lungs which which appear to represent a combination of parenchymal and pleural calcifications. There are scattered subpleural blebs. There are a few scattered linear parenchymal scars. No pulmonary mass is evident. Small bilateral pleural effusions are present. There is minimal underlying atelectasis posteriorly in the lung bases. Pneumoperitoneum evident in the upper abdomen is presumably on a postsurgical basis. There are mild scattered degenerative changes in the spine. IMPRESSION: 1. Mild emphysema with pleural/parenchymal scarring. 2. Old healed granulomatous disease in the chest. 3. Small bilateral pleural effusions. 4. No CT evidence of metastatic disease in the chest. PQRS Compliance Statement: One or more of the following individualized dose reduction techniques were utilized for this examination: 1. Automated exposure control 2. Adjustment of the mA and/or kV according to patient size 3. Use of iterative reconstruction technique
--- NOTE | 2017-09-05 10:35 | PDOC ---
PROGRESS NOTES Subjective Subjective HPI - Adenocarcinoma of the sigmoid colon [id number] stage II, diagnosed by colonoscopy by Dr. Gerard Taylor on 08/29/2017, status post sigmoid colon resection by Dr. Brooks on 08/30/2017. ROS - no abd pain Objective Objective Vital Signs Date Time Temp Pulse Resp B/P (MAP) Pulse Ox O2 Delivery O2 Flow Rate FiO2 09/05/17 07:00 97.9 77 19 121/78 (92) 98 Room Air 97.9 09/04/17 21:37 2.0 Intake and Output 09/05/17 07:00 Intake Total 1060 ml Output Total 400 ml Balance 660 ml Intake Oral 760 ml IV Total 300 ml Output Urine Total 400 ml Physical Exam Heart: Normal S1, Normal S2 General: Alert, Oriented X3, No acute distress Lungs: Clear to auscultation Neuro: Normal speech Psych/Mental Status: Mental status NL Assessment Assessment Problems Medical Problems: (1) Diverticulitis Status: Acute IMPRESSION AND PLAN: 1. Adenocarcinoma of the sigmoid colon [id number] stage II, diagnosed by colonoscopy by Dr. Gerard Taylor on 08/29/2017, status post sigmoid colon resection by Dr. Brooks on 08/30/2017. INFILTRATING MODERATELY DIFFERENTIATED ADENOCARCINOMA measuring 7.5 cm in greatest dimension arising in the sigmoid colon and extending through the wall into the adjacent segment of small intestine. [address] negative. Final pathology results from the surgery reviewed, I would recommend adjuvant chemotherapy. I d/w patient. CT chest for staging w/u 09/04/17 is neg for mets CEA 08/31/17 is normal at 2.5. 2. Microcytic anemia secondary to iron deficiency. Hemoglobin 10.2 on 08/28/2017 and 8.3 on 08/30/2017. Continue to monitor hemoglobin. Plan iron supplementation. Hb 8.3. s/p venofer infusion 09/02/17. Comment Review of Relevant I have reviewed the following items deloris (where applicable) has been applied. Labs Laboratory Tests Test 09/04/17 05:25 09/05/17 04:45 White Blood Count 5.8 x10^3/uL (4.0-11.0) 5.1 x10^3/uL (4.0-11.0) Red Blood Count 4.18 x10^6/uL (4.30-5.70) 4.32 x10^6/uL (4.30-5.70) Hemoglobin 8.3 g/dL (13.0-17.5) 8.7 g/dL (13.0-17.5) Hematocrit 26.6 % (39.0-53.0) 28.0 % (39.0-53.0) Mean Corpuscular Volume 64 fL (79-100) 65 fL (79-100) Mean Corpuscular Hemoglobin 20 pg (25-35) 20 pg (25-35) Mean Corpuscular Hemoglobin Concent 31 g/dL (31-37) 31 g/dL (31-37) Red Cell Distribution Width 18.2 % (11.5-14.5) 18.5 % (11.5-14.5) Platelet Count 349 x10^3/uL (140-400) 348 x10^3/uL (140-400) Neutrophils (%) (Auto) 76 % (31-73) 68 % (31-73) Lymphocytes (%) (Auto) 14 % (24-48) 20 % (24-48) Monocytes (%) (Auto) 6 % (0-9) 6 % (0-9) Eosinophils (%) (Auto) 5 % (0-3) 5 % (0-3) Basophils (%) (Auto) 0 % (0-3) 1 % (0-3) Neutrophils # (Auto) 4.3 x10^3uL (1.8-7.7) 3.5 x10^3uL (1.8-7.7) Lymphocytes # (Auto) 0.8 x10^3/uL (1.0-4.8) 1.0 x10^3/uL (1.0-4.8) Monocytes # (Auto) 0.3 x10^3/uL (0.0-1.1) 0.3 x10^3/uL (0.0-1.1) Eosinophils # (Auto) 0.3 x10^3/uL (0.0-0.7) 0.3 x10^3/uL (0.0-0.7) Basophils # (Auto) 0.0 x10^3/uL (0.0-0.2) 0.0 x10^3/uL (0.0-0.2) Sodium Level 135 mmol/L (136-145) 139 mmol/L (136-145) Potassium Level 3.7 mmol/L (3.5-5.1) 4.1 mmol/L (3.5-5.1) Chloride Level 104 mmol/L (98-107) 105 mmol/L (98-107) Carbon Dioxide Level 28 mmol/L (21-32) 27 mmol/L (21-32) Anion Gap 3 (6-14) 7 (6-14) Blood Urea Nitrogen 9 mg/dL (8-26) 9 mg/dL (8-26) Creatinine 0.6 mg/dL (0.7-1.3) 0.7 mg/dL (0.7-1.3) Estimated GFR (Cockcroft-Gault) 138.9 116.2 Glucose Level 101 mg/dL (70-99) 95 mg/dL (70-99) Calcium Level 8.3 mg/dL (8.5-10.1) 8.7 mg/dL (8.5-10.1) Laboratory Tests Test 09/05/17 04:45 White Blood Count 5.1 x10^3/uL (4.0-11.0) Red Blood Count 4.32 x10^6/uL (4.30-5.70) Hemoglobin 8.7 g/dL (13.0-17.5) Hematocrit 28.0 % (39.0-53.0) Mean Corpuscular Volume 65 fL (79-100) Mean Corpuscular Hemoglobin 20 pg (25-35) Mean Corpuscular Hemoglobin Concent 31 g/dL (31-37) Red Cell Distribution Width 18.5 % (11.5-14.5) Platelet Count 348 x10^3/uL (140-400) Neutrophils (%) (Auto) 68 % (31-73) Lymphocytes (%) (Auto) 20 % (24-48) Monocytes (%) (Auto) 6 % (0-9) Eosinophils (%) (Auto) 5 % (0-3) Basophils (%) (Auto) 1 % (0-3) Neutrophils # (Auto) 3.5 x10^3uL (1.8-7.7) Lymphocytes # (Auto) 1.0 x10^3/uL (1.0-4.8) Monocytes # (Auto) 0.3 x10^3/uL (0.0-1.1) Eosinophils # (Auto) 0.3 x10^3/uL (0.0-0.7) Basophils # (Auto) 0.0 x10^3/uL (0.0-0.2) Sodium Level 139 mmol/L (136-145) Potassium Level 4.1 mmol/L (3.5-5.1) Chloride Level 105 mmol/L (98-107) Carbon Dioxide Level 27 mmol/L (21-32) Anion Gap 7 (6-14) Blood Urea Nitrogen 9 mg/dL (8-26) Creatinine 0.7 mg/dL (0.7-1.3) Estimated GFR (Cockcroft-Gault) 116.2 Glucose Level 95 mg/dL (70-99) Calcium Level 8.7 mg/dL (8.5-10.1) Microbiology 08/30/17 Anaerobic/Aerobic Culture - Final, Complete 08/30/17 Anaerobic Culture Result 1 (VINAY) - Final, Complete 08/30/17 Aerobic Culture - Final, Complete 08/30/17 Aerobic Culture Result 1 (VINAY) - Final, Complete Medications Current Medications Sodium Chloride 1,000 ml @ 1,000 mls/hr 1X ONCE IV Last administered on 07:48; Start 08/28/17 at 07:45; Stop 08/28/17 at 08:44; Status DC Ondansetron HCl (Zofran) 4 mg 1X ONCE IV Last administered on 08/28/17 07:48 ; Start 08/28/17 at 07:45; Stop 08/28/17 at 07:46; Status DC Pantoprazole Sodium (Protonix Vial) 40 mg 1X ONCE IVP Last administered on 07:50; Start 08/28/17 at 07:45; Stop 08/28/17 at 07:46; Status DC Morphine Sulfate 2 mg PRN Q15MIN PRN IV/SQ PAIN GREATER THAN 3/10; Start at 07:45; Stop 08/29/17 at 07:44; Status DC Ondansetron HCl (Zofran) 4 mg PRN Q8HRS PRN IV NAUSEA/VOMITING; Start 08/28/17 at 10:00; Stop 08/29/17 at 09:59; Status DC Morphine Sulfate 2 mg PRN Q2HR PRN IV PAIN; Start 08/28/17 at 10:00; Stop 08/29 at 09:59; Status DC Sodium Chloride 1,000 ml @ 125 mls/hr Q8H IV Last administered on 08/29/17 02 :05; Start 08/28/17 at 09:49; Stop 08/29/17 at 09:48; Status DC Ciprofloxacin/ Dextrose 200 ml @ 200 mls/hr 1X ONCE IV Last administered on 08/28/17 10:24; Start 08/28/17 at 10:00; Stop 08/28/17 at 10:59; Status DC Metronidazole 100 ml @ 100 mls/hr Q8HRS IV Last administered on 09/04/17 05: 10; Start 08/28/17 at 11:00; Stop 09/04/17 at 14:00; Status DC Metronidazole 100 ml @ 100 mls/hr 1X ONCE IV ; Start 08/28/17 at 10:00; Stop 08/28/17 at 10:59; Status Cancel Ciprofloxacin/ Dextrose 200 ml @ 200 mls/hr Q12HR IV Last administered on 21:51; Start 08/28/17 at 21:00 Famotidine (Pepcid Vial) 20 mg BID IVP Last administered on 09/04/17 08:37; Start 08/28/17 at 12:00; Stop 09/04/17 at 13:59; Status DC Polyethylene Glycol (miraLAX Powder BULK BOTTLE) 238 gm 1X ONCE PO Last administered on 08/28/17 17:26; Start 08/28/17 at 16:00; Stop 08/28/17 at 16:01 ; Status DC Bisacodyl (Dulcolax Tab) 10 mg 1X ONCE PO Last administered on 08/28/17 14:56 ; Start 08/28/17 at 15:00; Stop 08/28/17 at 15:01; Status DC Lactobacillus Rhamnosus (Culturelle) 1 cap BID PO Last administered on 08:43; Start 08/28/17 at 21:00 Fentanyl Citrate (Fentanyl 2ml Vial) 25 mcg PRN Q5MIN PRN IV MILD PAIN; Start 08/29/17 at 07:00; Stop 08/29/17 at 18:00; Status DC Fentanyl Citrate (Fentanyl 2ml Vial) 50 mcg PRN Q5MIN PRN IV MODERATE PAIN; Start 08/29/17 at 07:00; Stop 08/29/17 at 18:00; Status DC Morphine Sulfate 1 mg PRN Q10MIN PRN IV SEVERE PAIN; Start 08/29/17 at 07:00; Stop 08/29/17 at 18:00; Status DC Ringer's Solution 1,000 ml @ 30 mls/hr Q24H IV Last administered on 08/29/17t 13:58; Start 08/29/17 at 07:00; Stop 08/29/17 at 18:59; Status DC Lidocaine HCl (Xylocaine-Mpf 1% Vial) 2 ml PRN 1X PRN ID IV START; Start at 07:00; Stop 08/29/17 at 18:00; Status DC Hydromorphone HCl (Dilaudid) 0.5 mg PRN Q10MIN PRN IV SEV PAIN, Second choice; Start 08/29/17 at 07:00; Stop 08/29/17 at 18:00; Status DC Prochlorperazine Edisylate (Compazine) 5 mg PACU PRN PRN IV NAUSEA, MRX1; Start 08/29/17 at 07:00; Stop 08/29/17 at 18:00; Status DC Nicotine (Nicoderm Cq 21mg) 1 patch PRN DAILY PRN TD SMOKING CESSATION; Start 08/28/17 at 16:00 Nicotine Polacrilex (Nicorette Gum) 1 each PRN Q1HR PRN BC SMOKING CESSATION Last administered on 08/29/17t 08:37; Start 08/28/17 at 16:00 Midazolam HCl (Versed) 2 mg PRN 1X PRN IV PRIOR TO PROCEDURE; Start 08/29/17 at 10:45; Stop 08/30/17 at 10:44; Status DC Fentanyl Citrate (Fentanyl 2ml Vial) 25 mcg PRN Q5MIN PRN IV X 2 DOSES FOR PAIN ; Start 08/29/17 at 10:45; Stop 08/30/17 at 10:44; Status DC Fentanyl Citrate (Fentanyl 2ml Vial) 50 mcg PRN Q5MIN PRN IV X 2 DOSES FOR PAIN ; Start 08/29/17 at 10:45; Stop 08/30/17 at 10:44; Status DC Ringer's Solution 1,000 ml @ 125 mls/hr Q8H IV ; Start 08/29/17 at 10:32; Stop 08/29/17 at 20:00; Status DC Lidocaine HCl (Xylocaine-Mpf 1% Vial) 2 ml 1X PRN PRN ID IV START; Start at 10:45; Stop 08/30/17 at 10:44; Status DC Propofol 20 ml @ As Directed STK-MED ONCE IV ; Start 08/29/17 at 14:27; Stop at 14:28; Status DC Lidocaine HCl (Lidocaine Pf 2% Vial) 5 ml STK-MED ONCE .ROUTE ; Start 08/29/17 at 14:27; Stop 08/29/17 at 14:28; Status DC Propofol 20 ml @ As Directed STK-MED ONCE IV ; Start 08/29/17 at 14:28; Stop at 14:29; Status DC Propofol 20 ml @ As Directed STK-MED ONCE IV ; Start 08/30/17 at 10:26; Stop 08/30/17 at 10:27; Status DC Lidocaine HCl (Lidocaine Pf 2% Vial) 5 ml STK-MED ONCE .ROUTE ; Start 08/30/17 at 10:26; Stop 08/30/17 at 10:27; Status DC Dexamethasone Sodium Phosphate (Decadron) 20 mg STK-MED ONCE .ROUTE ; Start 08/06 at 10:26; Stop 08/30/17 at 10:27; Status DC Ondansetron HCl (Zofran) 4 mg STK-MED ONCE .ROUTE ; Start 08/30/17 at 10:26; Stop 08/30/17 at 10:27; Status DC Midazolam HCl (Versed) 2 mg STK-MED ONCE .ROUTE ; Start 08/30/17 at 10:27; Stop 08/30/17 at 10:28; Status DC Fentanyl Citrate (Fentanyl 5ml Vial) 250 mcg STK-MED ONCE .ROUTE ; Start at 10:27; Stop 08/30/17 at 10:28; Status DC Succinylcholine Chloride (Anectine) 200 mg STK-MED ONCE .ROUTE ; Start at 10:28; Stop 08/30/17 at 10:29; Status DC Rocuronium [place] (Zemuron) 50 mg STK-MED ONCE .ROUTE ; Start 08/30/17 at 10: 28; Stop 08/30/17 at 10:29; Status DC Cefoxitin Sodium 2 gm/Dextrose 100 ml @ 200 mls/hr 1X ONCE IV ; Start at 10:45; Stop 08/30/17 at 11:14; Status UNV Cefoxitin Sodium 100 ml @ 200 mls/hr ONCE ONCE IV Last administered on t 11:10; Start 08/30/17 at 11:00; Stop 08/30/17 at 11:29; Status DC Rocuronium [place] (Zemuron) 50 mg STK-MED ONCE .ROUTE ; Start 08/30/17 at 11: 20; Stop 08/30/17 at 11:21; Status DC Ephedrine Sulfate (Akovaz) 50 mg STK-MED ONCE .ROUTE ; Start 08/30/17 at 11:23 ; Stop 08/30/17 at 11:24; Status DC Ringer's Solution 1,000 ml @ 30 mls/hr Q24H IV Last administered on t 02:36; Start 08/30/17 at 11:45; Stop 09/01/17 at 19:38; Status DC Neostigmine Methylsulfate (Bloxiverz) 10 mg STK-MED ONCE .ROUTE ; Start at 12:54; Stop 08/30/17 at 12:55; Status DC Glycopyrrolate (Robinul) 1 mg STK-MED ONCE .ROUTE ; Start 08/30/17 at 12:54; Stop 08/30/17 at 12:55; Status DC Sevoflurane (Ultane) 90 ml STK-MED ONCE IH ; Start 08/30/17 at 13:00; Stop 08/06 at 13:01; Status DC Morphine Sulfate 10 mg STK-MED ONCE .ROUTE ; Start 08/30/17 at 13:35; Stop 08/06 at 13:36; Status DC Phenylephrine HCl (Kota-Synephrine Inj) 10 mg STK-MED ONCE .ROUTE ; Start at 14:18; Stop 08/30/17 at 14:19; Status DC Sodium Chloride (Sodium Chloride) 50 ml STK-MED ONCE IJ ; Start 08/30/17 at 14: 18; Stop 08/30/17 at 14:19; Status DC Morphine Sulfate 2 mg STK-MED ONCE .ROUTE ; Start 08/30/17 at 15:07; Stop 08/06 at 15:08; Status DC Fentanyl Citrate (Fentanyl 2ml Vial) 100 mcg STK-MED ONCE .ROUTE ; Start at 15:08; Stop 08/30/17 at 15:09; Status DC Ondansetron HCl (Zofran) 4 mg PRN Q6HRS PRN IV NAUSEA/VOMITING; Start at 15:15; Stop 08/31/17 at 15:14; Status DC Fentanyl Citrate (Fentanyl 2ml Vial) 25 mcg PRN Q5MIN PRN IV MILD PAIN Last administered on 08/30/17t 16:07; Start 08/30/17 at 15:15; Stop 08/31/17 at 15 :14; Status DC Fentanyl Citrate (Fentanyl 2ml Vial) 50 mcg PRN Q5MIN PRN IV MODERATE PAIN Last administered on 08/30/17t 16:20; Start 08/30/17 at 15:15; Stop 08/31/17 at 15:14; Status DC Morphine Sulfate 1 mg PRN Q10MIN PRN IV SEVERE PAIN Last administered on t 15:56; Start 08/30/17 at 15:15; Stop 08/31/17 at 15:14; Status DC Ringer's Solution 1,000 ml @ 0 mls/hr Q0M IV ; Start 08/30/17 at 15:11; Stop 08/31/17 at 03:10; Status DC Lidocaine HCl (Xylocaine-Mpf 1% Vial) 2 ml PRN 1X PRN ID PRIOR TO IV START; Start 08/30/17 at 15:15; Stop 08/31/17 at 15:14; Status DC Hydromorphone HCl (Dilaudid) 0.5 mg PRN Q10MIN PRN IV SEV PAIN, Second choice; Start 08/30/17 at 15:15; Stop 08/31/17 at 15:14; Status DC Prochlorperazine Edisylate (Compazine) 5 mg PACU PRN PRN IV NAUSEA, MRX1; Start 08/30/17 at 15:15; Stop 08/31/17 at 15:14; Status DC Ondansetron HCl (Zofran) 4 mg PRN Q6HRS PRN IV NAUSEA/VOMITING; Start at 15:30; Stop 08/31/17 at 15:29; Status UNV Fentanyl Citrate (Fentanyl 2ml Vial) 25 mcg PRN Q5MIN PRN IV MILD PAIN; Start 08/30/17 at 15:30; Stop 08/31/17 at 15:29; Status UNV Fentanyl Citrate (Fentanyl 2ml Vial) 50 mcg PRN Q5MIN PRN IV MODERATE PAIN; Start 08/30/17 at 15:30; Stop 08/31/17 at 15:29; Status UNV Morphine Sulfate 1 mg PRN Q10MIN PRN IV SEVERE PAIN; Start 08/30/17 at 15:30; Stop 08/31/17 at 15:29; Status UNV Ringer's Solution 1,000 ml @ 0 mls/hr Q0M IV ; Start 08/30/17 at 15:16; Stop 08/31/17 at 03:15; Status UNV Lidocaine HCl (Xylocaine-Mpf 1% Vial) 2 ml PRN 1X PRN ID PRIOR TO IV START; Start 08/30/17 at 15:30; Stop 08/31/17 at 15:29; Status UNV Hydromorphone HCl (Dilaudid) 0.5 mg PRN Q10MIN PRN IV SEV PAIN, Second choice; Start 08/30/17 at 15:30; Stop 08/31/17 at 15:29; Status UNV Prochlorperazine Edisylate (Compazine) 5 mg PACU PRN PRN IV NAUSEA, MRX1; Start 08/30/17 at 15:30; Stop 08/31/17 at 15:29; Status UNV Diphenhydramine HCl (Benadryl) 25 mg PRN Q6HRS PRN IV ITCHING Last administered on 09/04/17 20:35; Start 08/30/17 at 15:30 Enoxaparin Sodium (Lovenox 40mg Syringe) 40 mg Q24H SQ Last administered on 08:44; Start 08/31/17 at 09:00 Sodium Chloride (Normal Saline Flush) 3 ml QSHIFT PRN IV AFTER MEDS AND BLOOD DRAWS; Start 08/30/17 at 15:30 Potassium Chloride/Sodium Chloride 1,000 ml @ 100 mls/hr Q10H IV Last administered on 08/31/17 04:10; Start 08/30/17 at 15:27; Stop 08/31/17 at 11 :04; Status DC Hydromorphone HCl 30 ml @ 0 mls/hr CONT PRN PRN IV PROTOCOL Last administered on 08/31/17 05:32; Start 08/30/17 at 15:30; Stop 09/02/17 at 11:20; Status DC Ondansetron HCl (Zofran) 4 mg PRN Q6HRS PRN IV NAUESA, 1ST CHOICE Last administered on 09/02/17 16:06; Start 08/30/17 at 15:30 Throat Lozenges (Cepacol Sore Throat Lozenge) 1 michael PRN Q2HRS PRN PO SORE THROAT Last administered on 08/31/17 11:56; Start 08/30/17 at 15:30 Throat Lozenges (Chloraseptic) 1 spray PRN Q2HR PRN PO SORE THROAT; Start 08/06 at 15:30 Fentanyl Citrate (Fentanyl 2ml Vial) 100 mcg STK-MED ONCE .ROUTE ; Start at 16:03; Stop 08/30/17 at 16:04; Status DC Sodium Chloride 500 ml @ 100 mls/hr 1X ONCE IV Last administered on 11:53; Start 08/31/17 at 11:30; Stop 08/31/17 at 16:29; Status DC Magnesium Sulfate/ Dextrose 50 ml @ 25 mls/hr 1X ONCE IV Last administered on 08/31/17 12:18; Start 08/31/17 at 11:45; Stop 08/31/17 at 13:44; Status DC Magnesium Sulfate/ Dextrose 50 ml @ 25 mls/hr 1X ONCE IV Last administered on 09/01/17 10:22; Start 09/01/17 at 08:45; Stop 09/01/17 at 10:44; Status DC Amino Acids/ Glycerin/ Electrolytes 1,000 ml @ 80 mls/hr [id number] IV Last administered on 09/05/17 08:42; Start 09/01/17 at 10:30 Cefoxitin Sodium (Mefoxin 1gm Ivpb For Omni) 1 gm STK-MED ONCE IV ; Start 08/30 at 13:46; Stop 09/02/17 at 08:40; Status DC Iron Sucrose 500 mg/Sodium Chloride 275 ml @ 78.571 mls/ hr 1X ONCE IV Last administered on 09/02/17 11:35; Start 09/02/17 at 10:30; Stop 09/02/17 at 13 :59; Status DC Hydromorphone HCl (Dilaudid) 0.3 mg PRN Q4HRS PRN IVP PAIN; Start 09/02/17 at 11:30 Iron Sucrose 500 mg/Sodium Chloride 275 ml @ 78.571 mls/ hr 1X ONCE IV ; Start 09/02/17 at 12:15; Stop 09/02/17 at 15:44; Status UNV Oxycodone/ Acetaminophen (Percocet 5/325) 1 tab PRN Q4HRS PRN PO PAIN Last administered on 09/04/17 20:35; Start 09/02/17 at 13:15 Potassium Chloride (Klor-Con) 20 meq 1X ONCE PO Last administered on 09:01; Start 09/03/17 at 08:45; Stop 09/03/17 at 08:46; Status DC Ferrous Sulfate (Feosol) 325 mg BIDWMEALS PO ; Start 09/04/17 at 12:00; Stop 09/04/17 at 12:00; Status DC Cyanocobalamin (Vitamin B-12) 1,000 mcg DAILY PO Last administered on 08:43; Start 09/04/17 at 11:00 Iron Sucrose 200 mg/Sodium Chloride 110 ml @ 55 mls/hr DAILY IV ; Start at 12:00; Stop 09/08/17 at 10:00; Status Cancel Iron Sucrose 200 mg/Miscellaneous 10 ml @ 120 mls/hr DAILY IV Last administered on 09/04/17 13:37; Start 09/04/17 at 13:00; Stop 09/08/17 at 09 :04 Pantoprazole Sodium (Protonix) 40 mg DAILYAC PO Last administered on 08:43; Start 09/04/17 at 16:30 Calcium Carbonate/ Glycine (Tums) 500 mg PRN AFTMEALHC PRN PO INDIGESTION; Start 09/04/17 at 14:00 Metronidazole 100 ml @ 100 mls/hr BID IV Last administered on 09/05/17 08:43 ; Start 09/04/17 at 21:00 Vitals/I & O Vital Sign - Last 24 Hours 09/04/17 09/04/17 09/04/17 09/04/17 11:00 15:00 19:00 19:38 Temp 97.5 97.9 98.0 97.5 97.9 98.0 Pulse 84 77 77 Resp 20 20 18 B/P (MAP) 111/68 (82) 125/82 (96) 122/72 (89) Pulse Ox 98 99 96 O2 Delivery Room Air Room Air Room Air Room Air 09/04/17 09/04/17 09/04/17 09/05/17 20:35 21:37 22:56 07:00 Temp 98.0 97.9 98.0 97.9 Pulse 90 77 Resp 18 18 19 B/P (MAP) 121/72 (88) 121/78 (92) Pulse Ox 99 99 98 98 O2 Delivery Room Air Room Air Room Air Room Air O2 Flow Rate 2.0 Intake and Output 09/04/17 09/04/17 09/05/17 15:00 23:00 07:00 Intake Total 620 ml 440 ml Output Total 400 ml Balance 620 ml 40 ml Nutrition Consultation Dietary Evaluation: Recommendations by RD: Increase Calorie Intake, Protein supplementation, PPN/ TPN Comments: send sully ensure tid for optimum nutrition ppn until diet adv to solids and tolerated Expected Outcomes/Goals: to meet > 75% est nutr needs via po intake Malnutrition Findings: Food and Nutrition Intake (Sev: <50% est energy req 5days Weight Status: Appropriate FARHAN BARTLETT MD Sep 05, 2017 10:35
[2017-09-05] MEDS: IRON SUCROSE COMPLEX 200 MG in TOTAL VOLUME SYRINGE 0 ML IV SCH (10:49)
[2017-09-05] MEDS: CIPROFLOXACIN 400MG PREMIX 200 ML IV SCH ×2 (10:51→20:46)
[2017-09-05 11:08] VITALS: BP 111/72
--- NOTE | 2017-09-05 12:41 | PDOC ---
Subjective: Subjective: Now stooling and passing flatus. Vision better. Tolerating full liquids. Objective: Vital Signs: Vital Signs Date Time Temp Pulse Resp B/P (MAP) Pulse Ox O2 Delivery O2 Flow Rate FiO2 09/05/17 11:08 97.7 78 19 111/72 (85) 99 Room Air 97.7 09/05/17 08:00 2.0 Labs: Laboratory Tests Test 09/05/17 04:45 White Blood Count 5.1 x10^3/uL Red Blood Count 4.32 x10^6/uL Hemoglobin 8.7 g/dL Hematocrit 28.0 % Mean Corpuscular Volume 65 fL Mean Corpuscular Hemoglobin 20 pg Mean Corpuscular Hemoglobin Concent 31 g/dL Red Cell Distribution Width 18.5 % Platelet Count 348 x10^3/uL Neutrophils (%) (Auto) 68 % Lymphocytes (%) (Auto) 20 % Monocytes (%) (Auto) 6 % Eosinophils (%) (Auto) 5 % Basophils (%) (Auto) 1 % Neutrophils # (Auto) 3.5 x10^3uL Lymphocytes # (Auto) 1.0 x10^3/uL Monocytes # (Auto) 0.3 x10^3/uL Eosinophils # (Auto) 0.3 x10^3/uL Basophils # (Auto) 0.0 x10^3/uL Sodium Level 139 mmol/L Potassium Level 4.1 mmol/L Chloride Level 105 mmol/L Carbon Dioxide Level 27 mmol/L Anion Gap 7 Blood Urea Nitrogen 9 mg/dL Creatinine 0.7 mg/dL Estimated GFR (Cockcroft-Gault) 116.2 Glucose Level 95 mg/dL Calcium Level 8.7 mg/dL Imaging: Chest CT IMPRESSION: 1. Mild emphysema with pleural/parenchymal scarring. 2. Old healed granulomatous disease in the chest. 3. Small bilateral pleural effusions. 4. No CT evidence of metastatic disease in the chest. KUB IMPRESSION: Mild gaseous distention of small bowel loops compatible with an ileus, although partial small bowel obstruction cannot be excluded. PE: GEN: NAD LUNGS: CTAB HEART: RRR ABD: S/ND/NT NEURO/PSYCH: A & O 3 A/P: Sigmoid cancer s/p resection -plans for chemo -- Post-op ileus improved, plans to advance diet. ALEXIS ACEVEDO Sep 05, 2017 12:41
--- NOTE | 2017-09-05 12:43 | PDOC ---
SURGICAL PROGRESS NOTE Subjective tolerating diet having stools would like more to eat Vital Signs Vital Signs Date Time Temp Pulse Resp B/P (MAP) Pulse Ox O2 Delivery O2 Flow Rate FiO2 09/05/17 11:08 97.7 78 19 111/72 (85) 99 Room Air 97.7 09/05/17 08:00 2.0 I&O Intake and Output 09/05/17 07:00 Intake Total 1060 ml Output Total 400 ml Balance 660 ml Intake Oral 760 ml IV Total 300 ml Output Urine Total 400 ml General: Alert, Oriented X3, Cooperative, No acute distress Abdomen: Soft, Other (incision c/d/i, no erythema, mary serous ) Labs Laboratory Tests Test 09/04/17 05:25 09/05/17 04:45 White Blood Count 5.8 x10^3/uL (4.0-11.0) 5.1 x10^3/uL (4.0-11.0) Red Blood Count 4.18 x10^6/uL (4.30-5.70) 4.32 x10^6/uL (4.30-5.70) Hemoglobin 8.3 g/dL (13.0-17.5) 8.7 g/dL (13.0-17.5) Hematocrit 26.6 % (39.0-53.0) 28.0 % (39.0-53.0) Mean Corpuscular Volume 64 fL (79-100) 65 fL (79-100) Mean Corpuscular Hemoglobin 20 pg (25-35) 20 pg (25-35) Mean Corpuscular Hemoglobin Concent 31 g/dL (31-37) 31 g/dL (31-37) Red Cell Distribution Width 18.2 % (11.5-14.5) 18.5 % (11.5-14.5) Platelet Count 349 x10^3/uL (140-400) 348 x10^3/uL (140-400) Neutrophils (%) (Auto) 76 % (31-73) 68 % (31-73) Lymphocytes (%) (Auto) 14 % (24-48) 20 % (24-48) Monocytes (%) (Auto) 6 % (0-9) 6 % (0-9) Eosinophils (%) (Auto) 5 % (0-3) 5 % (0-3) Basophils (%) (Auto) 0 % (0-3) 1 % (0-3) Neutrophils # (Auto) 4.3 x10^3uL (1.8-7.7) 3.5 x10^3uL (1.8-7.7) Lymphocytes # (Auto) 0.8 x10^3/uL (1.0-4.8) 1.0 x10^3/uL (1.0-4.8) Monocytes # (Auto) 0.3 x10^3/uL (0.0-1.1) 0.3 x10^3/uL (0.0-1.1) Eosinophils # (Auto) 0.3 x10^3/uL (0.0-0.7) 0.3 x10^3/uL (0.0-0.7) Basophils # (Auto) 0.0 x10^3/uL (0.0-0.2) 0.0 x10^3/uL (0.0-0.2) Sodium Level 135 mmol/L (136-145) 139 mmol/L (136-145) Potassium Level 3.7 mmol/L (3.5-5.1) 4.1 mmol/L (3.5-5.1) Chloride Level 104 mmol/L (98-107) 105 mmol/L (98-107) Carbon Dioxide Level 28 mmol/L (21-32) 27 mmol/L (21-32) Anion Gap 3 (6-14) 7 (6-14) Blood Urea Nitrogen 9 mg/dL (8-26) 9 mg/dL (8-26) Creatinine 0.6 mg/dL (0.7-1.3) 0.7 mg/dL (0.7-1.3) Estimated GFR (Cockcroft-Gault) 138.9 116.2 Glucose Level 101 mg/dL (70-99) 95 mg/dL (70-99) Calcium Level 8.3 mg/dL (8.5-10.1) 8.7 mg/dL (8.5-10.1) Laboratory Tests Test 09/05/17 04:45 White Blood Count 5.1 x10^3/uL (4.0-11.0) Red Blood Count 4.32 x10^6/uL (4.30-5.70) Hemoglobin 8.7 g/dL (13.0-17.5) Hematocrit 28.0 % (39.0-53.0) Mean Corpuscular Volume 65 fL (79-100) Mean Corpuscular Hemoglobin 20 pg (25-35) Mean Corpuscular Hemoglobin Concent 31 g/dL (31-37) Red Cell Distribution Width 18.5 % (11.5-14.5) Platelet Count 348 x10^3/uL (140-400) Neutrophils (%) (Auto) 68 % (31-73) Lymphocytes (%) (Auto) 20 % (24-48) Monocytes (%) (Auto) 6 % (0-9) Eosinophils (%) (Auto) 5 % (0-3) Basophils (%) (Auto) 1 % (0-3) Neutrophils # (Auto) 3.5 x10^3uL (1.8-7.7) Lymphocytes # (Auto) 1.0 x10^3/uL (1.0-4.8) Monocytes # (Auto) 0.3 x10^3/uL (0.0-1.1) Eosinophils # (Auto) 0.3 x10^3/uL (0.0-0.7) Basophils # (Auto) 0.0 x10^3/uL (0.0-0.2) Sodium Level 139 mmol/L (136-145) Potassium Level 4.1 mmol/L (3.5-5.1) Chloride Level 105 mmol/L (98-107) Carbon Dioxide Level 27 mmol/L (21-32) Anion Gap 7 (6-14) Blood Urea Nitrogen 9 mg/dL (8-26) Creatinine 0.7 mg/dL (0.7-1.3) Estimated GFR (Cockcroft-Gault) 116.2 Glucose Level 95 mg/dL (70-99) Calcium Level 8.7 mg/dL (8.5-10.1) Problem List Problems Medical Problems: (1) Diverticulitis Status: Acute s/p sigmoid advance diet wean PPN Problems: [facility] [employer] Sep 05, 2017 12:43
[2017-09-05 15:00] VITALS: BP 114/70
--- NOTE | 2017-09-05 16:05 | PDOC ---
PROGRESS NOTES Chief Complaint Chief Complaint melena, hematochezia ASSESSMENT AND PLAN: Sigmoid mass s/p resection 08/30. , path colon Ca Microcytic anemia: severe. iron deficiency Hypomagnesemia Hypokalemia plan: fu with gi, sx cont clear liquid, encourage ambulate PPN venofer daily x5 ppi po dvt ppx pain control prn KUB showed ileus, but had flatus and BM after KUB advanc diet as per sx, still significant MARY drainage, pt wanna know when can go home fu with onco as outpt for chemo History of Present Illness History of Present Illness ROS: no fever, chills, sob or chest pain mild abd pain had Flatus or BM 09/04, post op 08/30 clear liquid diet, ppn still significant MARY drain at 340cc 24h Vitals Vitals Vital Signs Date Time Temp Pulse Resp B/P (MAP) Pulse Ox O2 Delivery O2 Flow Rate FiO2 09/05/17 15:00 97.9 84 19 114/70 (85) 98 Room Air 97.9 09/05/17 08:00 2.0 Physical Exam General: Alert, Oriented X3, Cooperative, No acute distress Heart: Normal S1, Normal S2 Lungs: Clear Abdomen: Soft, Other (incision c/d/i, no erythema, mary serous ) Extremities: No edema Skin: No rashes Labs LABS Laboratory Tests Test 09/05/17 04:45 White Blood Count 5.1 x10^3/uL (4.0-11.0) Red Blood Count 4.32 x10^6/uL (4.30-5.70) Hemoglobin 8.7 g/dL (13.0-17.5) Hematocrit 28.0 % (39.0-53.0) Mean Corpuscular Volume 65 fL (79-100) Mean Corpuscular Hemoglobin 20 pg (25-35) Mean Corpuscular Hemoglobin Concent 31 g/dL (31-37) Red Cell Distribution Width 18.5 % (11.5-14.5) Platelet Count 348 x10^3/uL (140-400) Neutrophils (%) (Auto) 68 % (31-73) Lymphocytes (%) (Auto) 20 % (24-48) Monocytes (%) (Auto) 6 % (0-9) Eosinophils (%) (Auto) 5 % (0-3) Basophils (%) (Auto) 1 % (0-3) Neutrophils # (Auto) 3.5 x10^3uL (1.8-7.7) Lymphocytes # (Auto) 1.0 x10^3/uL (1.0-4.8) Monocytes # (Auto) 0.3 x10^3/uL (0.0-1.1) Eosinophils # (Auto) 0.3 x10^3/uL (0.0-0.7) Basophils # (Auto) 0.0 x10^3/uL (0.0-0.2) Sodium Level 139 mmol/L (136-145) Potassium Level 4.1 mmol/L (3.5-5.1) Chloride Level 105 mmol/L (98-107) Carbon Dioxide Level 27 mmol/L (21-32) Anion Gap 7 (6-14) Blood Urea Nitrogen 9 mg/dL (8-26) Creatinine 0.7 mg/dL (0.7-1.3) Estimated GFR (Cockcroft-Gault) 116.2 Glucose Level 95 mg/dL (70-99) Calcium Level 8.7 mg/dL (8.5-10.1) Assessment and Plan Assessmemt and Plan Problems Medical Problems: (1) Diverticulitis Status: Acute Problems: Comment Review of Relevant I have reviewed the following items deloris (where applicable) has been applied. Labs Laboratory Tests Test 09/04/17 05:25 09/05/17 04:45 White Blood Count 5.8 x10^3/uL (4.0-11.0) 5.1 x10^3/uL (4.0-11.0) Red Blood Count 4.18 x10^6/uL (4.30-5.70) 4.32 x10^6/uL (4.30-5.70) Hemoglobin 8.3 g/dL (13.0-17.5) 8.7 g/dL (13.0-17.5) Hematocrit 26.6 % (39.0-53.0) 28.0 % (39.0-53.0) Mean Corpuscular Volume 64 fL (79-100) 65 fL (79-100) Mean Corpuscular Hemoglobin 20 pg (25-35) 20 pg (25-35) Mean Corpuscular Hemoglobin Concent 31 g/dL (31-37) 31 g/dL (31-37) Red Cell Distribution Width 18.2 % (11.5-14.5) 18.5 % (11.5-14.5) Platelet Count 349 x10^3/uL (140-400) 348 x10^3/uL (140-400) Neutrophils (%) (Auto) 76 % (31-73) 68 % (31-73) Lymphocytes (%) (Auto) 14 % (24-48) 20 % (24-48) Monocytes (%) (Auto) 6 % (0-9) 6 % (0-9) Eosinophils (%) (Auto) 5 % (0-3) 5 % (0-3) Basophils (%) (Auto) 0 % (0-3) 1 % (0-3) Neutrophils # (Auto) 4.3 x10^3uL (1.8-7.7) 3.5 x10^3uL (1.8-7.7) Lymphocytes # (Auto) 0.8 x10^3/uL (1.0-4.8) 1.0 x10^3/uL (1.0-4.8) Monocytes # (Auto) 0.3 x10^3/uL (0.0-1.1) 0.3 x10^3/uL (0.0-1.1) Eosinophils # (Auto) 0.3 x10^3/uL (0.0-0.7) 0.3 x10^3/uL (0.0-0.7) Basophils # (Auto) 0.0 x10^3/uL (0.0-0.2) 0.0 x10^3/uL (0.0-0.2) Sodium Level 135 mmol/L (136-145) 139 mmol/L (136-145) Potassium Level 3.7 mmol/L (3.5-5.1) 4.1 mmol/L (3.5-5.1) Chloride Level 104 mmol/L (98-107) 105 mmol/L (98-107) Carbon Dioxide Level 28 mmol/L (21-32) 27 mmol/L (21-32) Anion Gap 3 (6-14) 7 (6-14) Blood Urea Nitrogen 9 mg/dL (8-26) 9 mg/dL (8-26) Creatinine 0.6 mg/dL (0.7-1.3) 0.7 mg/dL (0.7-1.3) Estimated GFR (Cockcroft-Gault) 138.9 116.2 Glucose Level 101 mg/dL (70-99) 95 mg/dL (70-99) Calcium Level 8.3 mg/dL (8.5-10.1) 8.7 mg/dL (8.5-10.1) Laboratory Tests Test 09/05/17 04:45 White Blood Count 5.1 x10^3/uL (4.0-11.0) Red Blood Count 4.32 x10^6/uL (4.30-5.70) Hemoglobin 8.7 g/dL (13.0-17.5) Hematocrit 28.0 % (39.0-53.0) Mean Corpuscular Volume 65 fL (79-100) Mean Corpuscular Hemoglobin 20 pg (25-35) Mean Corpuscular Hemoglobin Concent 31 g/dL (31-37) Red Cell Distribution Width 18.5 % (11.5-14.5) Platelet Count 348 x10^3/uL (140-400) Neutrophils (%) (Auto) 68 % (31-73) Lymphocytes (%) (Auto) 20 % (24-48) Monocytes (%) (Auto) 6 % (0-9) Eosinophils (%) (Auto) 5 % (0-3) Basophils (%) (Auto) 1 % (0-3) Neutrophils # (Auto) 3.5 x10^3uL (1.8-7.7) Lymphocytes # (Auto) 1.0 x10^3/uL (1.0-4.8) Monocytes # (Auto) 0.3 x10^3/uL (0.0-1.1) Eosinophils # (Auto) 0.3 x10^3/uL (0.0-0.7) Basophils # (Auto) 0.0 x10^3/uL (0.0-0.2) Sodium Level 139 mmol/L (136-145) Potassium Level 4.1 mmol/L (3.5-5.1) Chloride Level 105 mmol/L (98-107) Carbon Dioxide Level 27 mmol/L (21-32) Anion Gap 7 (6-14) Blood Urea Nitrogen 9 mg/dL (8-26) Creatinine 0.7 mg/dL (0.7-1.3) Estimated GFR (Cockcroft-Gault) 116.2 Glucose Level 95 mg/dL (70-99) Calcium Level 8.7 mg/dL (8.5-10.1) Microbiology 08/30/17 Anaerobic/Aerobic Culture - Final, Complete 08/30/17 Anaerobic Culture Result 1 (VINAY) - Final, Complete 08/30/17 Aerobic Culture - Final, Complete 08/30/17 Aerobic Culture Result 1 (VINAY) - Final, Complete Medications Current Medications Sodium Chloride 1,000 ml @ 1,000 mls/hr 1X ONCE IV Last administered on 07:48; Start 08/28/17 at 07:45; Stop 08/28/17 at 08:44; Status DC Ondansetron HCl (Zofran) 4 mg 1X ONCE IV Last administered on 08/28/17 07:48 ; Start 08/28/17 at 07:45; Stop 08/28/17 at 07:46; Status DC Pantoprazole Sodium (Protonix Vial) 40 mg 1X ONCE IVP Last administered on 07:50; Start 08/28/17 at 07:45; Stop 08/28/17 at 07:46; Status DC Morphine Sulfate 2 mg PRN Q15MIN PRN IV/SQ PAIN GREATER THAN 3/10; Start at 07:45; Stop 08/29/17 at 07:44; Status DC Ondansetron HCl (Zofran) 4 mg PRN Q8HRS PRN IV NAUSEA/VOMITING; Start 08/28/17 at 10:00; Stop 08/29/17 at 09:59; Status DC Morphine Sulfate 2 mg PRN Q2HR PRN IV PAIN; Start 08/28/17 at 10:00; Stop 08/29 at 09:59; Status DC Sodium Chloride 1,000 ml @ 125 mls/hr Q8H IV Last administered on 08/29/17 02 :05; Start 08/28/17 at 09:49; Stop 08/29/17 at 09:48; Status DC Ciprofloxacin/ Dextrose 200 ml @ 200 mls/hr 1X ONCE IV Last administered on 08/28/17 10:24; Start 08/28/17 at 10:00; Stop 08/28/17 at 10:59; Status DC Metronidazole 100 ml @ 100 mls/hr Q8HRS IV Last administered on 09/04/17 05: 10; Start 08/28/17 at 11:00; Stop 09/04/17 at 14:00; Status DC Metronidazole 100 ml @ 100 mls/hr 1X ONCE IV ; Start 08/28/17 at 10:00; Stop 08/28/17 at 10:59; Status Cancel Ciprofloxacin/ Dextrose 200 ml @ 200 mls/hr Q12HR IV Last administered on 10:51; Start 08/28/17 at 21:00 Famotidine (Pepcid Vial) 20 mg BID IVP Last administered on 09/04/17 08:37; Start 08/28/17 at 12:00; Stop 09/04/17 at 13:59; Status DC Polyethylene Glycol (miraLAX Powder BULK BOTTLE) 238 gm 1X ONCE PO Last administered on 08/28/17 17:26; Start 08/28/17 at 16:00; Stop 08/28/17 at 16:01 ; Status DC Bisacodyl (Dulcolax Tab) 10 mg 1X ONCE PO Last administered on 08/28/17 14:56 ; Start 08/28/17 at 15:00; Stop 08/28/17 at 15:01; Status DC Lactobacillus Rhamnosus (Culturelle) 1 cap BID PO Last administered on 08:43; Start 08/28/17 at 21:00 Fentanyl Citrate (Fentanyl 2ml Vial) 25 mcg PRN Q5MIN PRN IV MILD PAIN; Start 08/29/17 at 07:00; Stop 08/29/17 at 18:00; Status DC Fentanyl Citrate (Fentanyl 2ml Vial) 50 mcg PRN Q5MIN PRN IV MODERATE PAIN; Start 08/29/17 at 07:00; Stop 08/29/17 at 18:00; Status DC Morphine Sulfate 1 mg PRN Q10MIN PRN IV SEVERE PAIN; Start 08/29/17 at 07:00; Stop 08/29/17 at 18:00; Status DC Ringer's Solution 1,000 ml @ 30 mls/hr Q24H IV Last administered on 08/29/17t 13:58; Start 08/29/17 at 07:00; Stop 08/29/17 at 18:59; Status DC Lidocaine HCl (Xylocaine-Mpf 1% Vial) 2 ml PRN 1X PRN ID IV START; Start at 07:00; Stop 08/29/17 at 18:00; Status DC Hydromorphone HCl (Dilaudid) 0.5 mg PRN Q10MIN PRN IV SEV PAIN, Second choice; Start 08/29/17 at 07:00; Stop 08/29/17 at 18:00; Status DC Prochlorperazine Edisylate (Compazine) 5 mg PACU PRN PRN IV NAUSEA, MRX1; Start 08/29/17 at 07:00; Stop 08/29/17 at 18:00; Status DC Nicotine (Nicoderm Cq 21mg) 1 patch PRN DAILY PRN TD SMOKING CESSATION; Start 08/28/17 at 16:00 Nicotine Polacrilex (Nicorette Gum) 1 each PRN Q1HR PRN BC SMOKING CESSATION Last administered on 08/29/17t 08:37; Start 08/28/17 at 16:00 Midazolam HCl (Versed) 2 mg PRN 1X PRN IV PRIOR TO PROCEDURE; Start 08/29/17 at 10:45; Stop 08/30/17 at 10:44; Status DC Fentanyl Citrate (Fentanyl 2ml Vial) 25 mcg PRN Q5MIN PRN IV X 2 DOSES FOR PAIN ; Start 08/29/17 at 10:45; Stop 08/30/17 at 10:44; Status DC Fentanyl Citrate (Fentanyl 2ml Vial) 50 mcg PRN Q5MIN PRN IV X 2 DOSES FOR PAIN ; Start 08/29/17 at 10:45; Stop 08/30/17 at 10:44; Status DC Ringer's Solution 1,000 ml @ 125 mls/hr Q8H IV ; Start 08/29/17 at 10:32; Stop 08/29/17 at 20:00; Status DC Lidocaine HCl (Xylocaine-Mpf 1% Vial) 2 ml 1X PRN PRN ID IV START; Start at 10:45; Stop 08/30/17 at 10:44; Status DC Propofol 20 ml @ As Directed STK-MED ONCE IV ; Start 08/29/17 at 14:27; Stop at 14:28; Status DC Lidocaine HCl (Lidocaine Pf 2% Vial) 5 ml STK-MED ONCE .ROUTE ; Start 08/29/17 at 14:27; Stop 08/29/17 at 14:28; Status DC Propofol 20 ml @ As Directed STK-MED ONCE IV ; Start 08/29/17 at 14:28; Stop at 14:29; Status DC Propofol 20 ml @ As Directed STK-MED ONCE IV ; Start 08/30/17 at 10:26; Stop 08/30/17 at 10:27; Status DC Lidocaine HCl (Lidocaine Pf 2% Vial) 5 ml STK-MED ONCE .ROUTE ; Start 08/30/17 at 10:26; Stop 08/30/17 at 10:27; Status DC Dexamethasone Sodium Phosphate (Decadron) 20 mg STK-MED ONCE .ROUTE ; Start 08/06 at 10:26; Stop 08/30/17 at 10:27; Status DC Ondansetron HCl (Zofran) 4 mg STK-MED ONCE .ROUTE ; Start 08/30/17 at 10:26; Stop 08/30/17 at 10:27; Status DC Midazolam HCl (Versed) 2 mg STK-MED ONCE .ROUTE ; Start 08/30/17 at 10:27; Stop 08/30/17 at 10:28; Status DC Fentanyl Citrate (Fentanyl 5ml Vial) 250 mcg STK-MED ONCE .ROUTE ; Start at 10:27; Stop 08/30/17 at 10:28; Status DC Succinylcholine Chloride (Anectine) 200 mg STK-MED ONCE .ROUTE ; Start at 10:28; Stop 08/30/17 at 10:29; Status DC Rocuronium Dowling (Zemuron) 50 mg STK-MED ONCE .ROUTE ; Start 08/30/17 at 10: 28; Stop 08/30/17 at 10:29; Status DC Cefoxitin Sodium 2 gm/Dextrose 100 ml @ 200 mls/hr 1X ONCE IV ; Start at 10:45; Stop 08/30/17 at 11:14; Status UNV Cefoxitin Sodium 100 ml @ 200 mls/hr ONCE ONCE IV Last administered on t 11:10; Start 08/30/17 at 11:00; Stop 08/30/17 at 11:29; Status DC Rocuronium Dowling (Zemuron) 50 mg STK-MED ONCE .ROUTE ; Start 08/30/17 at 11: 20; Stop 08/30/17 at 11:21; Status DC Ephedrine Sulfate (Akovaz) 50 mg STK-MED ONCE .ROUTE ; Start 08/30/17 at 11:23 ; Stop 08/30/17 at 11:24; Status DC Ringer's Solution 1,000 ml @ 30 mls/hr Q24H IV Last administered on t 02:36; Start 08/30/17 at 11:45; Stop 09/01/17 at 19:38; Status DC Neostigmine Methylsulfate (Bloxiverz) 10 mg STK-MED ONCE .ROUTE ; Start at 12:54; Stop 08/30/17 at 12:55; Status DC Glycopyrrolate (Robinul) 1 mg STK-MED ONCE .ROUTE ; Start 08/30/17 at 12:54; Stop 08/30/17 at 12:55; Status DC Sevoflurane (Ultane) 90 ml STK-MED ONCE IH ; Start 08/30/17 at 13:00; Stop 08/06 at 13:01; Status DC Morphine Sulfate 10 mg STK-MED ONCE .ROUTE ; Start 08/30/17 at 13:35; Stop 08/06 at 13:36; Status DC Phenylephrine HCl (Kota-Synephrine Inj) 10 mg STK-MED ONCE .ROUTE ; Start at 14:18; Stop 08/30/17 at 14:19; Status DC Sodium Chloride (Sodium Chloride) 50 ml STK-MED ONCE IJ ; Start 08/30/17 at 14: 18; Stop 08/30/17 at 14:19; Status DC Morphine Sulfate 2 mg STK-MED ONCE .ROUTE ; Start 08/30/17 at 15:07; Stop 08/06 at 15:08; Status DC Fentanyl Citrate (Fentanyl 2ml Vial) 100 mcg STK-MED ONCE .ROUTE ; Start at 15:08; Stop 08/30/17 at 15:09; Status DC Ondansetron HCl (Zofran) 4 mg PRN Q6HRS PRN IV NAUSEA/VOMITING; Start at 15:15; Stop 08/31/17 at 15:14; Status DC Fentanyl Citrate (Fentanyl 2ml Vial) 25 mcg PRN Q5MIN PRN IV MILD PAIN Last administered on 08/30/17 16:07; Start 08/30/17 at 15:15; Stop 08/31/17 at 15 :14; Status DC Fentanyl Citrate (Fentanyl 2ml Vial) 50 mcg PRN Q5MIN PRN IV MODERATE PAIN Last administered on 08/30/17 16:20; Start 08/30/17 at 15:15; Stop 08/31/17 at 15:14; Status DC Morphine Sulfate 1 mg PRN Q10MIN PRN IV SEVERE PAIN Last administered on 15:56; Start 08/30/17 at 15:15; Stop 08/31/17 at 15:14; Status DC Ringer's Solution 1,000 ml @ 0 mls/hr Q0M IV ; Start 08/30/17 at 15:11; Stop 08/31/17 at 03:10; Status DC Lidocaine HCl (Xylocaine-Mpf 1% Vial) 2 ml PRN 1X PRN ID PRIOR TO IV START; Start 08/30/17 at 15:15; Stop 08/31/17 at 15:14; Status DC Hydromorphone HCl (Dilaudid) 0.5 mg PRN Q10MIN PRN IV SEV PAIN, Second choice; Start 08/30/17 at 15:15; Stop 08/31/17 at 15:14; Status DC Prochlorperazine Edisylate (Compazine) 5 mg PACU PRN PRN IV NAUSEA, MRX1; Start 08/30/17 at 15:15; Stop 08/31/17 at 15:14; Status DC Ondansetron HCl (Zofran) 4 mg PRN Q6HRS PRN IV NAUSEA/VOMITING; Start at 15:30; Stop 08/31/17 at 15:29; Status UNV Fentanyl Citrate (Fentanyl 2ml Vial) 25 mcg PRN Q5MIN PRN IV MILD PAIN; Start 08/30/17 at 15:30; Stop 08/31/17 at 15:29; Status UNV Fentanyl Citrate (Fentanyl 2ml Vial) 50 mcg PRN Q5MIN PRN IV MODERATE PAIN; Start 08/30/17 at 15:30; Stop 08/31/17 at 15:29; Status UNV Morphine Sulfate 1 mg PRN Q10MIN PRN IV SEVERE PAIN; Start 08/30/17 at 15:30; Stop 08/31/17 at 15:29; Status UNV Ringer's Solution 1,000 ml @ 0 mls/hr Q0M IV ; Start 08/30/17 at 15:16; Stop 08/31/17 at 03:15; Status UNV Lidocaine HCl (Xylocaine-Mpf 1% Vial) 2 ml PRN 1X PRN ID PRIOR TO IV START; Start 08/30/17 at 15:30; Stop 08/31/17 at 15:29; Status UNV Hydromorphone HCl (Dilaudid) 0.5 mg PRN Q10MIN PRN IV SEV PAIN, Second choice; Start 08/30/17 at 15:30; Stop 08/31/17 at 15:29; Status UNV Prochlorperazine Edisylate (Compazine) 5 mg PACU PRN PRN IV NAUSEA, MRX1; Start 08/30/17 at 15:30; Stop 08/31/17 at 15:29; Status UNV Diphenhydramine HCl (Benadryl) 25 mg PRN Q6HRS PRN IV ITCHING Last administered on 09/04/17 20:35; Start 08/30/17 at 15:30 Enoxaparin Sodium (Lovenox 40mg Syringe) 40 mg Q24H SQ Last administered on 08:44; Start 08/31/17 at 09:00 Sodium Chloride (Normal Saline Flush) 3 ml QSHIFT PRN IV AFTER MEDS AND BLOOD DRAWS; Start 08/30/17 at 15:30 Potassium Chloride/Sodium Chloride 1,000 ml @ 100 mls/hr Q10H IV Last administered on 08/31/17 04:10; Start 08/30/17 at 15:27; Stop 08/31/17 at 11 :04; Status DC Hydromorphone HCl 30 ml @ 0 mls/hr CONT PRN PRN IV PROTOCOL Last administered on 08/31/17 05:32; Start 08/30/17 at 15:30; Stop 09/02/17 at 11:20; Status DC Ondansetron HCl (Zofran) 4 mg PRN Q6HRS PRN IV NAUESA, 1ST CHOICE Last administered on 09/02/17 16:06; Start 08/30/17 at 15:30 Throat Lozenges (Cepacol Sore Throat Lozenge) 1 michael PRN Q2HRS PRN PO SORE THROAT Last administered on 08/31/17 11:56; Start 08/30/17 at 15:30 Throat Lozenges (Chloraseptic) 1 spray PRN Q2HR PRN PO SORE THROAT; Start 08/06 at 15:30 Fentanyl Citrate (Fentanyl 2ml Vial) 100 mcg STK-MED ONCE .ROUTE ; Start at 16:03; Stop 08/30/17 at 16:04; Status DC Sodium Chloride 500 ml @ 100 mls/hr 1X ONCE IV Last administered on 11:53; Start 08/31/17 at 11:30; Stop 08/31/17 at 16:29; Status DC Magnesium Sulfate/ Dextrose 50 ml @ 25 mls/hr 1X ONCE IV Last administered on 08/31/17 12:18; Start 08/31/17 at 11:45; Stop 08/31/17 at 13:44; Status DC Magnesium Sulfate/ Dextrose 50 ml @ 25 mls/hr 1X ONCE IV Last administered on 09/01/17 10:22; Start 09/01/17 at 08:45; Stop 09/01/17 at 10:44; Status DC Amino Acids/ Glycerin/ Electrolytes 1,000 ml @ 80 mls/hr [id number] IV Last administered on 09/05/17 08:42; Start 09/01/17 at 10:30 Cefoxitin Sodium (Mefoxin 1gm Ivpb For Omni) 1 gm STK-MED ONCE IV ; Start 08/30 at 13:46; Stop 09/02/17 at 08:40; Status DC Iron Sucrose 500 mg/Sodium Chloride 275 ml @ 78.571 mls/ hr 1X ONCE IV Last administered on 09/02/17 11:35; Start 09/02/17 at 10:30; Stop 09/02/17 at 13 :59; Status DC Hydromorphone HCl (Dilaudid) 0.3 mg PRN Q4HRS PRN IVP PAIN; Start 09/02/17 at 11:30 Iron Sucrose 500 mg/Sodium Chloride 275 ml @ 78.571 mls/ hr 1X ONCE IV ; Start 09/02/17 at 12:15; Stop 09/02/17 at 15:44; Status UNV Oxycodone/ Acetaminophen (Percocet 5/325) 1 tab PRN Q4HRS PRN PO PAIN Last administered on 09/04/17 20:35; Start 09/02/17 at 13:15 Potassium Chloride (Klor-Con) 20 meq 1X ONCE PO Last administered on 09:01; Start 09/03/17 at 08:45; Stop 09/03/17 at 08:46; Status DC Ferrous Sulfate (Feosol) 325 mg BIDWMEALS PO ; Start 09/04/17 at 12:00; Stop 09/04/17 at 12:00; Status DC Cyanocobalamin (Vitamin B-12) 1,000 mcg DAILY PO Last administered on 08:43; Start 09/04/17 at 11:00 Iron Sucrose 200 mg/Sodium Chloride 110 ml @ 55 mls/hr DAILY IV ; Start at 12:00; Stop 09/08/17 at 10:00; Status Cancel Iron Sucrose 200 mg/Miscellaneous 10 ml @ 120 mls/hr DAILY IV Last administered on 09/05/17 10:49; Start 09/04/17 at 13:00; Stop 09/08/17 at 09 :04 Pantoprazole Sodium (Protonix) 40 mg DAILYAC PO Last administered on 08:43; Start 09/04/17 at 16:30 Calcium Carbonate/ Glycine (Tums) 500 mg PRN AFTMEALHC PRN PO INDIGESTION; Start 09/04/17 at 14:00 Metronidazole 100 ml @ 100 mls/hr BID IV Last administered on 09/05/17 08:43 ; Start 09/04/17 at 21:00 Vitals/I & O Vital Sign - Last 24 Hours 11/09/04/17 09/04/17 09/04/17 19:00 19:38 20:35 21:37 Temp 98.0 98.0 Pulse 77 Resp 18 18 B/P (MAP) 122/72 (89) Pulse Ox 96 99 99 O2 Delivery Room Air Room Air Room Air Room Air O2 Flow Rate 2.0 09/04/17 09/05/17 09/05/17 09/05/17 22:56 07:00 08:00 11:08 Temp 98.0 97.9 97.7 98.0 97.9 97.7 Pulse 90 77 78 Resp 18 19 19 B/P (MAP) 121/72 (88) 121/78 (92) 111/72 (85) Pulse Ox 98 98 99 O2 Delivery Room Air Room Air Room Air Room Air O2 Flow Rate 2.0 09/05/17 15:00 Temp 97.9 97.9 Pulse 84 Resp 19 B/P (MAP) 114/70 (85) Pulse Ox 98 O2 Delivery Room Air Intake and Output 09/04/17 09/04/17 09/05/17 15:00 23:00 07:00 Intake Total 620 ml 440 ml Output Total 400 ml Balance 620 ml 40 ml Nutrition Consultation Dietary Evaluation: Recommendations by RD: Increase Calorie Intake, Protein supplementation, PPN/ TPN Comments: send sully ensure tid for optimum nutrition ppn until diet adv to solids and tolerated Expected Outcomes/Goals: to meet > 75% est nutr needs via po intake Malnutrition Findings: Food and Nutrition Intake (Sev: <50% est energy req 5days Weight Status: Appropriate AUBREE ORTEGA MD Sep 05, 2017 16:05
[2017-09-05 19:00] VITALS: BP 110/72
[2017-09-05 23:00] VITALS: BP 150/79
[2017-09-06 03:00] VITALS: BP 122/78
[2017-09-06] MEDS: AMINO AC 3%/ELECTROLYTE/GLYCER 1,000 ML IV SCH (03:54)
[2017-09-06 06:06] LABS: BASO % 0 % (0-3); EOS % 5 % (0-3); HEMATOCRIT 28.1 % (39.0-53.0); HEMOGLOBIN 8.8 g/dL (13.0-17.5); LYMPH % 17 % (24-48); MEAN CORPUSCULAR HEMOGLOBIN 20 pg (25-35); MEAN CORPUSCULAR HGB CONC 31 g/dL (31-37); MEAN CORPUSCULAR VOLUME 65 fL (79-100); MONO % 6 % (0-9); NEUT % 73 % (31-73); PLATELET COUNT 358 x10^3/uL (140-400); RED BLOOD COUNT 4.35 x10^6/uL (4.30-5.70); RED CELL DISTRIBUTION WIDTH 18.6 % (11.5-14.5); WHITE BLOOD COUNT 6.3 x10^3/uL (4.0-11.0)
[2017-09-06 06:17] LABS: CALCIUM 8.5 mg/dL (8.5-10.1); CREATININE 0.7 mg/dL (0.7-1.3); GFR 116.2; POTASSIUM 3.9 mmol/L (3.5-5.1)
[2017-09-06 07:00] VITALS: BP 120/80
[2017-09-06] MEDS: PANTOPRAZOLE 40 MG TABLET.DR. PO SCH (08:23)
[2017-09-06] MEDS: CIPROFLOXACIN 400MG PREMIX 200 ML IV SCH (09:10)
[2017-09-06] MEDS: LACTOBACILLUS RHAMNOSUS GG 1 CAPSULE. PO SCH (09:11)
[2017-09-06] MEDS: IRON SUCROSE COMPLEX 200 MG in TOTAL VOLUME SYRINGE 0 ML IV SCH (09:11)
[2017-09-06] MEDS: CYANOCOBALAMIN (VITAMIN B-12) 1,000 MCG TABLET. PO SCH (09:11)
[2017-09-06] MEDS: ENOXAPARIN 40 MG/0.4 ML SYRINGE. SQ SCH (09:12)
--- NOTE | 2017-09-06 10:47 | PDOC ---
Subjective: Subjective: Better, eating and stooling, asks when he can leave. Objective: Vital Signs: Vital Signs Date Time Temp Pulse Resp B/P (MAP) Pulse Ox O2 Delivery O2 Flow Rate FiO2 09/06/17 08:00 Room Air 2.0 09/06/17 07:00 97.9 75 20 120/80 (93) 98 97.9 Labs: Laboratory Tests Test 09/06/17 05:05 09/06/17 05:07 White Blood Count 6.3 x10^3/uL Red Blood Count 4.35 x10^6/uL Hemoglobin 8.8 g/dL Hematocrit 28.1 % Mean Corpuscular Volume 65 fL Mean Corpuscular Hemoglobin 20 pg Mean Corpuscular Hemoglobin Concent 31 g/dL Red Cell Distribution Width 18.6 % Platelet Count 358 x10^3/uL Neutrophils (%) (Auto) 73 % Lymphocytes (%) (Auto) 17 % Monocytes (%) (Auto) 6 % Eosinophils (%) (Auto) 5 % Basophils (%) (Auto) 0 % Neutrophils # (Auto) 4.6 x10^3uL Lymphocytes # (Auto) 1.0 x10^3/uL Monocytes # (Auto) 0.4 x10^3/uL Eosinophils # (Auto) 0.3 x10^3/uL Basophils # (Auto) 0.0 x10^3/uL Sodium Level 138 mmol/L Potassium Level 3.9 mmol/L Chloride Level 103 mmol/L Carbon Dioxide Level 28 mmol/L Anion Gap 7 Blood Urea Nitrogen 11 mg/dL Creatinine 0.7 mg/dL Estimated GFR (Cockcroft-Gault) 116.2 Glucose Level 91 mg/dL Calcium Level 8.5 mg/dL PE: GEN: NAD LUNGS: CTAB HEART: RRR ABD: NABS, S/ND/NT NEURO/PSYCH: A & O 3 A/P: Sigmoid cancer s/p resection -- Improved post-op. DC per primary/surg, follow-up w/ onc. ALEXIS ACEVEDO Sep 06, 2017 10:47
[2017-09-06 11:00] VITALS: BP 107/72
--- NOTE | 2017-09-06 12:12 | PDOC ---
SURGICAL PROGRESS NOTE Subjective tolerating diet having stools denies pain Vital Signs Vital Signs Date Time Temp Pulse Resp B/P (MAP) Pulse Ox O2 Delivery O2 Flow Rate FiO2 09/06/17 11:00 97.9 106 20 107/72 (84) 98 Room Air 97.9 09/06/17 08:00 2.0 I&O Intake and Output 09/06/17 07:00 Intake Total 1000 ml Output Total 2600 ml Balance -1600 ml Intake Oral 700 ml IV Total 300 ml Output Urine Total 2600 ml # Voids 3 General: Alert, Oriented X3, Cooperative, No acute distress Abdomen: Soft, Other (ND, incision c/d/i, no erythema, mary minimal serous drainage) Labs Laboratory Tests Test 09/05/17 04:45 09/06/17 05:05 09/06/17 05:07 White Blood Count 5.1 x10^3/uL (4.0-11.0) 6.3 x10^3/uL (4.0-11.0) Red Blood Count 4.32 x10^6/uL (4.30-5.70) 4.35 x10^6/uL (4.30-5.70) Hemoglobin 8.7 g/dL (13.0-17.5) 8.8 g/dL (13.0-17.5) Hematocrit 28.0 % (39.0-53.0) 28.1 % (39.0-53.0) Mean Corpuscular Volume 65 fL (79-100) 65 fL (79-100) Mean Corpuscular Hemoglobin 20 pg (25-35) 20 pg (25-35) Mean Corpuscular Hemoglobin Concent 31 g/dL (31-37) 31 g/dL (31-37) Red Cell Distribution Width 18.5 % (11.5-14.5) 18.6 % (11.5-14.5) Platelet Count 348 x10^3/uL (140-400) 358 x10^3/uL (140-400) Neutrophils (%) (Auto) 68 % (31-73) 73 % (31-73) Lymphocytes (%) (Auto) 20 % (24-48) 17 % (24-48) Monocytes (%) (Auto) 6 % (0-9) 6 % (0-9) Eosinophils (%) (Auto) 5 % (0-3) 5 % (0-3) Basophils (%) (Auto) 1 % (0-3) 0 % (0-3) Neutrophils # (Auto) 3.5 x10^3uL (1.8-7.7) 4.6 x10^3uL (1.8-7.7) Lymphocytes # (Auto) 1.0 x10^3/uL (1.0-4.8) 1.0 x10^3/uL (1.0-4.8) Monocytes # (Auto) 0.3 x10^3/uL (0.0-1.1) 0.4 x10^3/uL (0.0-1.1) Eosinophils # (Auto) 0.3 x10^3/uL (0.0-0.7) 0.3 x10^3/uL (0.0-0.7) Basophils # (Auto) 0.0 x10^3/uL (0.0-0.2) 0.0 x10^3/uL (0.0-0.2) Sodium Level 139 mmol/L (136-145) 138 mmol/L (136-145) Potassium Level 4.1 mmol/L (3.5-5.1) 3.9 mmol/L (3.5-5.1) Chloride Level 105 mmol/L (98-107) 103 mmol/L (98-107) Carbon Dioxide Level 27 mmol/L (21-32) 28 mmol/L (21-32) Anion Gap 7 (6-14) 7 (6-14) Blood Urea Nitrogen 9 mg/dL (8-26) 11 mg/dL (8-26) Creatinine 0.7 mg/dL (0.7-1.3) 0.7 mg/dL (0.7-1.3) Estimated GFR (Cockcroft-Gault) 116.2 116.2 Glucose Level 95 mg/dL (70-99) 91 mg/dL (70-99) Calcium Level 8.7 mg/dL (8.5-10.1) 8.5 mg/dL (8.5-10.1) Laboratory Tests Test 09/06/17 05:05 09/06/17 05:07 White Blood Count 6.3 x10^3/uL (4.0-11.0) Red Blood Count 4.35 x10^6/uL (4.30-5.70) Hemoglobin 8.8 g/dL (13.0-17.5) Hematocrit 28.1 % (39.0-53.0) Mean Corpuscular Volume 65 fL (79-100) Mean Corpuscular Hemoglobin 20 pg (25-35) Mean Corpuscular Hemoglobin Concent 31 g/dL (31-37) Red Cell Distribution Width 18.6 % (11.5-14.5) Platelet Count 358 x10^3/uL (140-400) Neutrophils (%) (Auto) 73 % (31-73) Lymphocytes (%) (Auto) 17 % (24-48) Monocytes (%) (Auto) 6 % (0-9) Eosinophils (%) (Auto) 5 % (0-3) Basophils (%) (Auto) 0 % (0-3) Neutrophils # (Auto) 4.6 x10^3uL (1.8-7.7) Lymphocytes # (Auto) 1.0 x10^3/uL (1.0-4.8) Monocytes # (Auto) 0.4 x10^3/uL (0.0-1.1) Eosinophils # (Auto) 0.3 x10^3/uL (0.0-0.7) Basophils # (Auto) 0.0 x10^3/uL (0.0-0.2) Sodium Level 138 mmol/L (136-145) Potassium Level 3.9 mmol/L (3.5-5.1) Chloride Level 103 mmol/L (98-107) Carbon Dioxide Level 28 mmol/L (21-32) Anion Gap 7 (6-14) Blood Urea Nitrogen 11 mg/dL (8-26) Creatinine 0.7 mg/dL (0.7-1.3) Estimated GFR (Cockcroft-Gault) 116.2 Glucose Level 91 mg/dL (70-99) Calcium Level 8.5 mg/dL (8.5-10.1) Problem List Problems Medical Problems: (1) Diverticulitis Status: Acute Assessment/Plan s/p sigmoid remove drain dc home Problems: [employer]LYST Sep 06, 2017 12:12
--- NOTE | 2017-09-06 12:16 | PDOC ---
PROGRESS NOTES Subjective Subjective HPI Adenocarcinoma of the sigmoid colon [id number] stage II, diagnosed by colonoscopy by Dr. Gerard Taylor on 08/29/2017, status post sigmoid colon resection by Dr. Brooks on 08/30/2017. ROS - no abd pain, tolerating oral intake Objective Objective Vital Signs Date Time Temp Pulse Resp B/P (MAP) Pulse Ox O2 Delivery O2 Flow Rate FiO2 09/06/17 11:00 97.9 106 20 107/72 (84) 98 Room Air 97.9 09/06/17 08:00 2.0 Intake and Output 09/06/17 07:00 Intake Total 1000 ml Output Total 2600 ml Balance -1600 ml Intake Oral 700 ml IV Total 300 ml Output Urine Total 2600 ml # Voids 3 Physical Exam Heart: Normal S1, Normal S2 General: Alert, Oriented X3 Lungs: Clear to auscultation Neuro: Normal speech Psych/Mental Status: Mental status NL Assessment Assessment Problems Medical Problems: (1) Diverticulitis Status: Acute IMPRESSION AND PLAN: 1. Adenocarcinoma of the sigmoid colon [id number] stage II, diagnosed by colonoscopy by Dr. Gerard Taylor on 08/29/2017, status post sigmoid colon resection by Dr. Brooks on 08/30/2017. INFILTRATING MODERATELY DIFFERENTIATED ADENOCARCINOMA measuring 7.5 cm in greatest dimension arising in the sigmoid colon and extending through the wall into the adjacent segment of small intestine. [address] negative. Final pathology results from the surgery reviewed, I would recommend adjuvant chemotherapy in 3-4 weeks. I d/w patient. CT chest for staging w/u 09/04/17 is neg for mets CEA 08/31/17 is normal at 2.5. f/u with me in 2-3 wks 2. Microcytic anemia secondary to iron deficiency. Hemoglobin 10.2 on 08/28/2017 and 8.3 on 08/30/2017. Continue to monitor hemoglobin. Plan iron supplementation. Hb 8.8 on 09/06/17. s/p venofer infusion 09/02/17. Comment Review of Relevant I have reviewed the following items deloris (where applicable) has been applied. Labs Laboratory Tests Test 09/05/17 04:45 09/06/17 05:05 09/06/17 05:07 White Blood Count 5.1 x10^3/uL (4.0-11.0) 6.3 x10^3/uL (4.0-11.0) Red Blood Count 4.32 x10^6/uL (4.30-5.70) 4.35 x10^6/uL (4.30-5.70) Hemoglobin 8.7 g/dL (13.0-17.5) 8.8 g/dL (13.0-17.5) Hematocrit 28.0 % (39.0-53.0) 28.1 % (39.0-53.0) Mean Corpuscular Volume 65 fL (79-100) 65 fL (79-100) Mean Corpuscular Hemoglobin 20 pg (25-35) 20 pg (25-35) Mean Corpuscular Hemoglobin Concent 31 g/dL (31-37) 31 g/dL (31-37) Red Cell Distribution Width 18.5 % (11.5-14.5) 18.6 % (11.5-14.5) Platelet Count 348 x10^3/uL (140-400) 358 x10^3/uL (140-400) Neutrophils (%) (Auto) 68 % (31-73) 73 % (31-73) Lymphocytes (%) (Auto) 20 % (24-48) 17 % (24-48) Monocytes (%) (Auto) 6 % (0-9) 6 % (0-9) Eosinophils (%) (Auto) 5 % (0-3) 5 % (0-3) Basophils (%) (Auto) 1 % (0-3) 0 % (0-3) Neutrophils # (Auto) 3.5 x10^3uL (1.8-7.7) 4.6 x10^3uL (1.8-7.7) Lymphocytes # (Auto) 1.0 x10^3/uL (1.0-4.8) 1.0 x10^3/uL (1.0-4.8) Monocytes # (Auto) 0.3 x10^3/uL (0.0-1.1) 0.4 x10^3/uL (0.0-1.1) Eosinophils # (Auto) 0.3 x10^3/uL (0.0-0.7) 0.3 x10^3/uL (0.0-0.7) Basophils # (Auto) 0.0 x10^3/uL (0.0-0.2) 0.0 x10^3/uL (0.0-0.2) Sodium Level 139 mmol/L (136-145) 138 mmol/L (136-145) Potassium Level 4.1 mmol/L (3.5-5.1) 3.9 mmol/L (3.5-5.1) Chloride Level 105 mmol/L (98-107) 103 mmol/L (98-107) Carbon Dioxide Level 27 mmol/L (21-32) 28 mmol/L (21-32) Anion Gap 7 (6-14) 7 (6-14) Blood Urea Nitrogen 9 mg/dL (8-26) 11 mg/dL (8-26) Creatinine 0.7 mg/dL (0.7-1.3) 0.7 mg/dL (0.7-1.3) Estimated GFR (Cockcroft-Gault) 116.2 116.2 Glucose Level 95 mg/dL (70-99) 91 mg/dL (70-99) Calcium Level 8.7 mg/dL (8.5-10.1) 8.5 mg/dL (8.5-10.1) Laboratory Tests Test 09/06/17 05:05 09/06/17 05:07 White Blood Count 6.3 x10^3/uL (4.0-11.0) Red Blood Count 4.35 x10^6/uL (4.30-5.70) Hemoglobin 8.8 g/dL (13.0-17.5) Hematocrit 28.1 % (39.0-53.0) Mean Corpuscular Volume 65 fL (79-100) Mean Corpuscular Hemoglobin 20 pg (25-35) Mean Corpuscular Hemoglobin Concent 31 g/dL (31-37) Red Cell Distribution Width 18.6 % (11.5-14.5) Platelet Count 358 x10^3/uL (140-400) Neutrophils (%) (Auto) 73 % (31-73) Lymphocytes (%) (Auto) 17 % (24-48) Monocytes (%) (Auto) 6 % (0-9) Eosinophils (%) (Auto) 5 % (0-3) Basophils (%) (Auto) 0 % (0-3) Neutrophils # (Auto) 4.6 x10^3uL (1.8-7.7) Lymphocytes # (Auto) 1.0 x10^3/uL (1.0-4.8) Monocytes # (Auto) 0.4 x10^3/uL (0.0-1.1) Eosinophils # (Auto) 0.3 x10^3/uL (0.0-0.7) Basophils # (Auto) 0.0 x10^3/uL (0.0-0.2) Sodium Level 138 mmol/L (136-145) Potassium Level 3.9 mmol/L (3.5-5.1) Chloride Level 103 mmol/L (98-107) Carbon Dioxide Level 28 mmol/L (21-32) Anion Gap 7 (6-14) Blood Urea Nitrogen 11 mg/dL (8-26) Creatinine 0.7 mg/dL (0.7-1.3) Estimated GFR (Cockcroft-Gault) 116.2 Glucose Level 91 mg/dL (70-99) Calcium Level 8.5 mg/dL (8.5-10.1) Microbiology 08/30/17 Anaerobic/Aerobic Culture - Final, Complete 08/30/17 Anaerobic Culture Result 1 (VINAY) - Final, Complete 08/30/17 Aerobic Culture - Final, Complete 08/30/17 Aerobic Culture Result 1 (VINAY) - Final, Complete Medications Current Medications Sodium Chloride 1,000 ml @ 1,000 mls/hr 1X ONCE IV Last administered on 07:48; Start 08/28/17 at 07:45; Stop 08/28/17 at 08:44; Status DC Ondansetron HCl (Zofran) 4 mg 1X ONCE IV Last administered on 08/28/17 07:48 ; Start 08/28/17 at 07:45; Stop 08/28/17 at 07:46; Status DC Pantoprazole Sodium (Protonix Vial) 40 mg 1X ONCE IVP Last administered on 07:50; Start 08/28/17 at 07:45; Stop 08/28/17 at 07:46; Status DC Morphine Sulfate 2 mg PRN Q15MIN PRN IV/SQ PAIN GREATER THAN 3/10; Start at 07:45; Stop 08/29/17 at 07:44; Status DC Ondansetron HCl (Zofran) 4 mg PRN Q8HRS PRN IV NAUSEA/VOMITING; Start 08/28/17 at 10:00; Stop 08/29/17 at 09:59; Status DC Morphine Sulfate 2 mg PRN Q2HR PRN IV PAIN; Start 08/28/17 at 10:00; Stop 08/29 at 09:59; Status DC Sodium Chloride 1,000 ml @ 125 mls/hr Q8H IV Last administered on 08/29/17 02 :05; Start 08/28/17 at 09:49; Stop 08/29/17 at 09:48; Status DC Ciprofloxacin/ Dextrose 200 ml @ 200 mls/hr 1X ONCE IV Last administered on 08/28/17 10:24; Start 08/28/17 at 10:00; Stop 08/28/17 at 10:59; Status DC Metronidazole 100 ml @ 100 mls/hr Q8HRS IV Last administered on 09/04/17 05: 10; Start 08/28/17 at 11:00; Stop 09/04/17 at 14:00; Status DC Metronidazole 100 ml @ 100 mls/hr 1X ONCE IV ; Start 08/28/17 at 10:00; Stop 08/28/17 at 10:59; Status Cancel Ciprofloxacin/ Dextrose 200 ml @ 200 mls/hr Q12HR IV Last administered on 09:10; Start 08/28/17 at 21:00; Stop 09/06/17 at 10:48; Status DC Famotidine (Pepcid Vial) 20 mg BID IVP Last administered on 09/04/17 08:37; Start 08/28/17 at 12:00; Stop 09/04/17 at 13:59; Status DC Polyethylene Glycol (miraLAX Powder BULK BOTTLE) 238 gm 1X ONCE PO Last administered on 08/28/17 17:26; Start 08/28/17 at 16:00; Stop 08/28/17 at 16:01 ; Status DC Bisacodyl (Dulcolax Tab) 10 mg 1X ONCE PO Last administered on 08/28/17 14:56 ; Start 08/28/17 at 15:00; Stop 08/28/17 at 15:01; Status DC Lactobacillus Rhamnosus (Culturelle) 1 cap BID PO Last administered on 09:11; Start 08/28/17 at 21:00 Fentanyl Citrate (Fentanyl 2ml Vial) 25 mcg PRN Q5MIN PRN IV MILD PAIN; Start 08/29/17 at 07:00; Stop 08/29/17 at 18:00; Status DC Fentanyl Citrate (Fentanyl 2ml Vial) 50 mcg PRN Q5MIN PRN IV MODERATE PAIN; Start 08/29/17 at 07:00; Stop 08/29/17 at 18:00; Status DC Morphine Sulfate 1 mg PRN Q10MIN PRN IV SEVERE PAIN; Start 08/29/17 at 07:00; Stop 08/29/17 at 18:00; Status DC Ringer's Solution 1,000 ml @ 30 mls/hr Q24H IV Last administered on 08/29/17 13:58; Start 08/29/17 at 07:00; Stop 08/29/17 at 18:59; Status DC Lidocaine HCl (Xylocaine-Mpf 1% Vial) 2 ml PRN 1X PRN ID IV START; Start at 07:00; Stop 08/29/17 at 18:00; Status DC Hydromorphone HCl (Dilaudid) 0.5 mg PRN Q10MIN PRN IV SEV PAIN, Second choice; Start 08/29/17 at 07:00; Stop 08/29/17 at 18:00; Status DC Prochlorperazine Edisylate (Compazine) 5 mg PACU PRN PRN IV NAUSEA, MRX1; Start 08/29/17 at 07:00; Stop 08/29/17 at 18:00; Status DC Nicotine (Nicoderm Cq 21mg) 1 patch PRN DAILY PRN TD SMOKING CESSATION; Start 08/28/17 at 16:00 Nicotine Polacrilex (Nicorette Gum) 1 each PRN Q1HR PRN BC SMOKING CESSATION Last administered on 08/29/17 08:37; Start 08/28/17 at 16:00 Midazolam HCl (Versed) 2 mg PRN 1X PRN IV PRIOR TO PROCEDURE; Start 08/29/17 at 10:45; Stop 08/30/17 at 10:44; Status DC Fentanyl Citrate (Fentanyl 2ml Vial) 25 mcg PRN Q5MIN PRN IV X 2 DOSES FOR PAIN ; Start 08/29/17 at 10:45; Stop 08/30/17 at 10:44; Status DC Fentanyl Citrate (Fentanyl 2ml Vial) 50 mcg PRN Q5MIN PRN IV X 2 DOSES FOR PAIN ; Start 08/29/17 at 10:45; Stop 08/30/17 at 10:44; Status DC Ringer's Solution 1,000 ml @ 125 mls/hr Q8H IV ; Start 08/29/17 at 10:32; Stop 08/29/17 at 20:00; Status DC Lidocaine HCl (Xylocaine-Mpf 1% Vial) 2 ml 1X PRN PRN ID IV START; Start at 10:45; Stop 08/30/17 at 10:44; Status DC Propofol 20 ml @ As Directed STK-MED ONCE IV ; Start 08/29/17 at 14:27; Stop at 14:28; Status DC Lidocaine HCl (Lidocaine Pf 2% Vial) 5 ml STK-MED ONCE .ROUTE ; Start 08/29/17 at 14:27; Stop 08/29/17 at 14:28; Status DC Propofol 20 ml @ As Directed STK-MED ONCE IV ; Start 08/29/17 at 14:28; Stop at 14:29; Status DC Propofol 20 ml @ As Directed STK-MED ONCE IV ; Start 08/30/17 at 10:26; Stop 08/30/17 at 10:27; Status DC Lidocaine HCl (Lidocaine Pf 2% Vial) 5 ml STK-MED ONCE .ROUTE ; Start 08/30/17 at 10:26; Stop 08/30/17 at 10:27; Status DC Dexamethasone Sodium Phosphate (Decadron) 20 mg STK-MED ONCE .ROUTE ; Start 08/06 at 10:26; Stop 08/30/17 at 10:27; Status DC Ondansetron HCl (Zofran) 4 mg STK-MED ONCE .ROUTE ; Start 08/30/17 at 10:26; Stop 08/30/17 at 10:27; Status DC Midazolam HCl (Versed) 2 mg STK-MED ONCE .ROUTE ; Start 08/30/17 at 10:27; Stop 08/30/17 at 10:28; Status DC Fentanyl Citrate (Fentanyl 5ml Vial) 250 mcg STK-MED ONCE .ROUTE ; Start at 10:27; Stop 08/30/17 at 10:28; Status DC Succinylcholine Chloride (Anectine) 200 mg STK-MED ONCE .ROUTE ; Start at 10:28; Stop 08/30/17 at 10:29; Status DC Rocuronium Yatahey (Zemuron) 50 mg STK-MED ONCE .ROUTE ; Start 08/30/17 at 10: 28; Stop 08/30/17 at 10:29; Status DC Cefoxitin Sodium 2 gm/Dextrose 100 ml @ 200 mls/hr 1X ONCE IV ; Start at 10:45; Stop 08/30/17 at 11:14; Status UNV Cefoxitin Sodium 100 ml @ 200 mls/hr ONCE ONCE IV Last administered on t 11:10; Start 08/30/17 at 11:00; Stop 08/30/17 at 11:29; Status DC Rocuronium Y[place]hey (Zemuron) 50 mg STK-MED ONCE .ROUTE ; Start 08/30/17 at 11: 20; Stop 08/30/17 at 11:21; Status DC Ephedrine Sulfate (Akovaz) 50 mg STK-MED ONCE .ROUTE ; Start 08/30/17 at 11:23 ; Stop 08/30/17 at 11:24; Status DC Ringer's Solution 1,000 ml @ 30 mls/hr Q24H IV Last administered on t 02:36; Start 08/30/17 at 11:45; Stop 09/01/17 at 19:38; Status DC Neostigmine Methylsulfate (Bloxiverz) 10 mg STK-MED ONCE .ROUTE ; Start at 12:54; Stop 08/30/17 at 12:55; Status DC Glycopyrrolate (Robinul) 1 mg STK-MED ONCE .ROUTE ; Start 08/30/17 at 12:54; Stop 08/30/17 at 12:55; Status DC Sevoflurane (Ultane) 90 ml STK-MED ONCE IH ; Start 08/30/17 at 13:00; Stop 08/06 at 13:01; Status DC Morphine Sulfate 10 mg STK-MED ONCE .ROUTE ; Start 08/30/17 at 13:35; Stop 08/06 at 13:36; Status DC Phenylephrine HCl (Kota-Synephrine Inj) 10 mg STK-MED ONCE .ROUTE ; Start at 14:18; Stop 08/30/17 at 14:19; Status DC Sodium Chloride (Sodium Chloride) 50 ml STK-MED ONCE IJ ; Start 08/30/17 at 14: 18; Stop 08/30/17 at 14:19; Status DC Morphine Sulfate 2 mg STK-MED ONCE .ROUTE ; Start 08/30/17 at 15:07; Stop 08/06 at 15:08; Status DC Fentanyl Citrate (Fentanyl 2ml Vial) 100 mcg STK-MED ONCE .ROUTE ; Start at 15:08; Stop 08/30/17 at 15:09; Status DC Ondansetron HCl (Zofran) 4 mg PRN Q6HRS PRN IV NAUSEA/VOMITING; Start at 15:15; Stop 08/31/17 at 15:14; Status DC Fentanyl Citrate (Fentanyl 2ml Vial) 25 mcg PRN Q5MIN PRN IV MILD PAIN Last administered on 08/30/17t 16:07; Start 08/30/17 at 15:15; Stop 08/31/17 at 15 :14; Status DC Fentanyl Citrate (Fentanyl 2ml Vial) 50 mcg PRN Q5MIN PRN IV MODERATE PAIN Last administered on 08/30/17t 16:20; Start 08/30/17 at 15:15; Stop 08/31/17 at 15:14; Status DC Morphine Sulfate 1 mg PRN Q10MIN PRN IV SEVERE PAIN Last administered on t 15:56; Start 08/30/17 at 15:15; Stop 08/31/17 at 15:14; Status DC Ringer's Solution 1,000 ml @ 0 mls/hr Q0M IV ; Start 08/30/17 at 15:11; Stop 08/31/17 at 03:10; Status DC Lidocaine HCl (Xylocaine-Mpf 1% Vial) 2 ml PRN 1X PRN ID PRIOR TO IV START; Start 08/30/17 at 15:15; Stop 08/31/17 at 15:14; Status DC Hydromorphone HCl (Dilaudid) 0.5 mg PRN Q10MIN PRN IV SEV PAIN, Second choice; Start 08/30/17 at 15:15; Stop 08/31/17 at 15:14; Status DC Prochlorperazine Edisylate (Compazine) 5 mg PACU PRN PRN IV NAUSEA, MRX1; Start 08/30/17 at 15:15; Stop 08/31/17 at 15:14; Status DC Ondansetron HCl (Zofran) 4 mg PRN Q6HRS PRN IV NAUSEA/VOMITING; Start at 15:30; Stop 08/31/17 at 15:29; Status UNV Fentanyl Citrate (Fentanyl 2ml Vial) 25 mcg PRN Q5MIN PRN IV MILD PAIN; Start 08/30/17 at 15:30; Stop 08/31/17 at 15:29; Status UNV Fentanyl Citrate (Fentanyl 2ml Vial) 50 mcg PRN Q5MIN PRN IV MODERATE PAIN; Start 08/30/17 at 15:30; Stop 08/31/17 at 15:29; Status UNV Morphine Sulfate 1 mg PRN Q10MIN PRN IV SEVERE PAIN; Start 08/30/17 at 15:30; Stop 08/31/17 at 15:29; Status UNV Ringer's Solution 1,000 ml @ 0 mls/hr Q0M IV ; Start 08/30/17 at 15:16; Stop 08/31/17 at 03:15; Status UNV Lidocaine HCl (Xylocaine-Mpf 1% Vial) 2 ml PRN 1X PRN ID PRIOR TO IV START; Start 08/30/17 at 15:30; Stop 08/31/17 at 15:29; Status UNV Hydromorphone HCl (Dilaudid) 0.5 mg PRN Q10MIN PRN IV SEV PAIN, Second choice; Start 08/30/17 at 15:30; Stop 08/31/17 at 15:29; Status UNV Prochlorperazine Edisylate (Compazine) 5 mg PACU PRN PRN IV NAUSEA, MRX1; Start 08/30/17 at 15:30; Stop 08/31/17 at 15:29; Status UNV Diphenhydramine HCl (Benadryl) 25 mg PRN Q6HRS PRN IV ITCHING Last administered on 09/04/17 20:35; Start 08/30/17 at 15:30 Enoxaparin Sodium (Lovenox 40mg Syringe) 40 mg Q24H SQ Last administered on 09:12; Start 08/31/17 at 09:00 Sodium Chloride (Normal Saline Flush) 3 ml QSHIFT PRN IV AFTER MEDS AND BLOOD DRAWS; Start 08/30/17 at 15:30 Potassium Chloride/Sodium Chloride 1,000 ml @ 100 mls/hr Q10H IV Last administered on 08/31/17 04:10; Start 08/30/17 at 15:27; Stop 08/31/17 at 11 :04; Status DC Hydromorphone HCl 30 ml @ 0 mls/hr CONT PRN PRN IV PROTOCOL Last administered on 08/31/17 05:32; Start 08/30/17 at 15:30; Stop 09/02/17 at 11:20; Status DC Ondansetron HCl (Zofran) 4 mg PRN Q6HRS PRN IV NAUESA, 1ST CHOICE Last administered on 09/02/17 16:06; Start 08/30/17 at 15:30 Throat Lozenges (Cepacol Sore Throat Lozenge) 1 michael PRN Q2HRS PRN PO SORE THROAT Last administered on 08/31/17 11:56; Start 08/30/17 at 15:30 Throat Lozenges (Chloraseptic) 1 spray PRN Q2HR PRN PO SORE THROAT; Start 08/06 at 15:30 Fentanyl Citrate (Fentanyl 2ml Vial) 100 mcg STK-MED ONCE .ROUTE ; Start at 16:03; Stop 08/30/17 at 16:04; Status DC Sodium Chloride 500 ml @ 100 mls/hr 1X ONCE IV Last administered on 11:53; Start 08/31/17 at 11:30; Stop 08/31/17 at 16:29; Status DC Magnesium Sulfate/ Dextrose 50 ml @ 25 mls/hr 1X ONCE IV Last administered on 08/31/17 12:18; Start 08/31/17 at 11:45; Stop 08/31/17 at 13:44; Status DC Magnesium Sulfate/ Dextrose 50 ml @ 25 mls/hr 1X ONCE IV Last administered on 09/01/17 10:22; Start 09/01/17 at 08:45; Stop 09/01/17 at 10:44; Status DC Amino Acids/ Glycerin/ Electrolytes 1,000 ml @ 80 mls/hr [id number] IV Last administered on 09/06/17 03:54; Start 09/01/17 at 10:30; Stop 09/06/17 at 10 :48; Status DC Cefoxitin Sodium (Mefoxin 1gm Ivpb For Omni) 1 gm STK-MED ONCE IV ; Start 08/30 at 13:46; Stop 09/02/17 at 08:40; Status DC Iron Sucrose 500 mg/Sodium Chloride 275 ml @ 78.571 mls/ hr 1X ONCE IV Last administered on 09/02/17 11:35; Start 09/02/17 at 10:30; Stop 09/02/17 at 13 :59; Status DC Hydromorphone HCl (Dilaudid) 0.3 mg PRN Q4HRS PRN IVP PAIN; Start 09/02/17 at 11:30 Iron Sucrose 500 mg/Sodium Chloride 275 ml @ 78.571 mls/ hr 1X ONCE IV ; Start 09/02/17 at 12:15; Stop 09/02/17 at 15:44; Status UNV Oxycodone/ Acetaminophen (Percocet 5/325) 1 tab PRN Q4HRS PRN PO PAIN Last administered on 09/04/17 20:35; Start 09/02/17 at 13:15 Potassium Chloride (Klor-Con) 20 meq 1X ONCE PO Last administered on 09:01; Start 09/03/17 at 08:45; Stop 09/03/17 at 08:46; Status DC Ferrous Sulfate (Feosol) 325 mg BIDWMEALS PO ; Start 09/04/17 at 12:00; Stop 09/04/17 at 12:00; Status DC Cyanocobalamin (Vitamin B-12) 1,000 mcg DAILY PO Last administered on 09:11; Start 09/04/17 at 11:00 Iron Sucrose 200 mg/Sodium Chloride 110 ml @ 55 mls/hr DAILY IV ; Start at 12:00; Stop 09/08/17 at 10:00; Status Cancel Iron Sucrose 200 mg/Miscellaneous 10 ml @ 120 mls/hr DAILY IV Last administered on 09/06/17 09:11; Start 09/04/17 at 13:00; Stop 09/08/17 at 09 :04 Pantoprazole Sodium (Protonix) 40 mg DAILYAC PO Last administered on 08:23; Start 09/04/17 at 16:30 Calcium Carbonate/ Glycine (Tums) 500 mg PRN AFTMEALHC PRN PO INDIGESTION; Start 09/04/17 at 14:00 Metronidazole 100 ml @ 100 mls/hr BID IV Last administered on 09/05/17 20:47 ; Start 09/04/17 at 21:00; Stop 09/06/17 at 10:48; Status DC Vitals/I & O Vital Sign - Last 24 Hours 09/05/17 09/05/17 09/05/17 09/05/17 15:00 19:00 20:00 23:00 Temp 97.9 97.9 98.1 97.9 97.9 98.1 Pulse 84 81 78 Resp 16 B/P (MAP) 114/70 (85) 110/72 (85) 150/79 (102) Pulse Ox 98 97 99 O2 Delivery Room Air Room Air Room Air Room Air O2 Flow Rate 2.0 09/06/17 09/06/17 09/06/17 09/06/17 03:00 07:00 08:00 11:00 Temp 97.0 97.9 97.9 97.0 97.9 97.9 Pulse 79 75 106 Resp B/P (MAP) 122/78 (93) 120/80 (93) 107/72 (84) Pulse Ox 99 98 98 O2 Delivery Room Air Room Air Room Air Room Air O2 Flow Rate 2.0 Intake and Output 09/05/17 09/05/17 09/06/17 15:00 23:00 07:00 Intake Total 350 ml 350 ml 300 ml Output Total 2000 ml 600 ml Balance -1650 ml -250 ml 300 ml Nutrition Consultation Dietary Evaluation: Recommendations by RD: Increase Calorie Intake, Protein supplementation, PPN/ TPN Comments: send sully ensure tid for optimum nutrition ppn until diet adv to solids and tolerated Expected Outcomes/Goals: to meet > 75% est nutr needs via po intake Malnutrition Findings: Food and Nutrition Intake (Sev: <50% est energy req 5days Weight Status: Appropriate FARHAN BARTLETT MD Sep 06, 2017 12:16
[2017-09-06] MEDS ORDERED: CYAN10005 PO (14:07)
[2017-09-06 15:00] VITALS: BP 109/74
--- NOTE | 2017-09-06 16:08 | PDOC3 ---
Discharge Summary [facility] Date of Admission: Aug 28, 2017 Discharge Date: Sep 06, 2017 Admitting Diagnosis Sigmoid mass s/p resection 08/30. , path colon Ca Microcytic anemia: severe. iron deficiency Hypomagnesemia Hypokalemia Problems: Final Diagnosis CONSULTS sx onco Brief Hospital Course Mr. Jose is a 56 old M came for abd pain ,melena. ct showed sigmoid mass, confirmed with colonoscopy. got sx to remove the sigmoid mass, path + colon adenocarcinoma. had post op ileus for 5ds, eventually got flatus, BM. eats ok, drainage less, remove MARY, dc PPN, dc home dc time 35min fu with onco for outpt chemo General: Alert, Oriented X3, Cooperative, No acute distress Heart: Normal S1, Normal S2 Lungs: Clear Abdomen: Soft, Other (incision c/d/i, no erythema, mary serous ) Extremities: No edema Skin: No rashes Patient History: FH: colon cancer in first degree relative <60 years old 32 MOTHER FH: heart attack 33 FATHER FH: liver cancer 33 FATHER Problems: Disposition home CONDITION AT DISCHARGE: Improved Diet regular Scheduled Cyanocobalamin (Vitamin B-12) (Vitamin B-12), 1,000 MCG PO DAILY Follow Up sx, onco in 2 weeks AUBREE ORTEGA MD Sep 06, 2017 16:08
== END 2017-09-06 16:30 | disposition home or self-care (01) | DRG 330 ==
LOC: ER 07:03 → 5 NORTH 09:46
PROVIDERS: ADMIT Internal Medicine; ATTEND Internal Medicine
PROC: 0DBN8ZX Excision of Sigmoid Colon, Via Natural or Artificial Opening Endoscopic, Diagnostic (ICD-10-PCS; 2017-08-29)
PROC: 0DBM0ZZ Excision of Descending Colon, Open Approach (ICD-10-PCS; principal; 2017-08-30 11:30)
PROC: 0DB80ZZ Excision of Small Intestine, Open Approach (ICD-10-PCS; 2017-08-30 11:30)
PROC: 0D9670Z Drainage of Stomach with Drainage Device, Via Natural or Artificial Opening (ICD-10-PCS; 2017-09-01)
PROC: 3E0336Z Introduction of Nutritional Substance into Peripheral Vein, Percutaneous Approach (ICD-10-PCS; 2017-09-04)
DX: C18.7 Malignant neoplasm of sigmoid colon (principal); K92.2 Gastrointestinal hemorrhage, unspecified; K56.600 Partial intestinal obstruction, unspecified as to cause; K56.7 Ileus, unspecified; J43.9 Emphysema, unspecified; E83.42 Hypomagnesemia; K52.9 Noninfective gastroenteritis and colitis, unspecified; K64.8 Other hemorrhoids; E87.6 Hypokalemia; D50.9 Iron deficiency anemia, unspecified; F17.210 Nicotine dependence, cigarettes, uncomplicated; Z80.0 Family history of malignant neoplasm of digestive organs; Z91.013 Allergy to seafood; Z82.49 Family history of ischemic heart disease and other diseases of the circulatory system; Z85.038 Personal history of other malignant neoplasm of large intestine; Z90.49 Acquired absence of other specified parts of digestive tract
CPT/HCPCS: 36415; 71250; 74000; 74176; 80048; 80053; 82150; 82274; 82378; 82607; 82728; 82746; 83540; 83550; 83690; 83735; 84100; 84132; 85007; 85014; 85018; 85025; 85045; 86850; 86900; 86901; 87071; 87075; 88305; 88309; 88341; 88342; 96361; 96365; 96375; C9113; G0480; J0330; J0694; J0744; J1100; J1170; J1200; J1650; J1756; J2250; J2270; J2405; J2704; J2710; J3010; J3490; J7030; J7050; J7060; J7120; S0028; 99285-25; A4461; J2001